=== PATIENT | female | born 1935 | race Caucasian/White ===

== ENCOUNTER → 2019-01-21 | Outpatient (CLI) | payer MEDICARE, SELFPAY ==
[2019-01-18 15:07] VITALS: BMI 24.0
--- NOTE | 2019-01-21 08:36 | RAD_ITS ---
STUDY: AIR CONTRAST UPPER GI SERIES postprandial abdominal pain. REASON FOR EXAM: Female, 83 years old. FLUOROSCOPY TIME (if supplied): (1:04) minutes/seconds TECHNIQUE: SINGLE CONTRAST AND AIR CONTRAST FLUOROSCOPIC IMAGES. COMPARISON: Comparison is made with prior study dated April 07, 2015. FINDINGS: The cervical esophagus demonstrates normal motility without aspiration. There is no stricture or extrinsic mass effect. No intraluminal polypoid mass is identified. The thoracic esophagus distends well without stricture or mucosal fold thickening. No mucosal ulcerations are identified. There is no extrinsic mass effect. There are no diverticula. No hiatal hernia or gastroesophageal reflux was identified. The stomach distends well without mucosal fold thickening or mucosal ulceration. There is no intraluminal mass. The duodenal bulb is freely distensible without deformity or ulceration. The duodenal sweep is normal in position and caliber. RAD/Upper GI w/BA Swallow IMPRESSION: Normal air-contrast upper GI series. Electronically Signed: Deangelo Naik, at 15:14 EDT , Service support ,
== END | disposition home or self-care (01) ==
LOC: RAD 08:35
PROVIDERS: Family Provider Internal Medicine; PCP Internal Medicine; Referring Provider Surgery; Visit Provider Surgery
DX: R13.10 Dysphagia, unspecified (principal)
CPT/HCPCS: 74246

== ENCOUNTER 2019-02-02 05:21 | Day surgery (SDC) | payer MEDICARE, SELFPAY ==
--- NOTE | 2019-01-18 03:28 | HP_ITS ---
Intake Vital Signs 01/18/19 Body Mass Index (BMI) 24.0 01/18/19 Height 5 ft 5 in 01/18/19 Weight: 144 lb 01/18/19 Body Mass Index (BMI) 23.9 01/18/19 Blood Pressure 199/81 H 01/18/19 Blood Pressure Location Rt brachial 01/18/19 Blood Pressure Position Sitting 01/18/19 Respiratory Rate 20 H 01/18/19 Pulse Rate 96 01/18/19 Pulse Source Monitor 01/18/19 Temperature 97.5 F L 01/18/19 Pulse Ox 96 01/18/19 Oxygen Delivery Method room air Intake Visit Reasons: EGD Consult/Barretts Esophagus Chief Complaint: Rectal Bleeding Leather Colorer Required: No Is patient in pain?: No Allergies acetaminophen [From Percocet] Allergy (Verified 01/18/19 15:06) Unknown aspirin Allergy (Verified 01/18/19 15:06) Unknown atorvastatin calcium [From Lipitor] Allergy (Verified 01/18/19 15:06) Unknown baclofen Allergy (Verified 01/18/19 15:06) Unknown celecoxib [From Celebrex] Allergy (Verified 01/18/19 15:06) Unknown flavoxate Allergy (Verified 01/18/19 15:06) Unknown glimepiride Allergy (Verified 01/18/19 15:06) Unknown hydrochlorothiazide Allergy (Verified 01/18/19 15:06) Unknown ibuprofen Allergy (Verified 01/18/19 15:06) Unknown losartan potassium [From Cozaar] Allergy (Verified 01/18/19 15:06) Unknown mirtazapine Allergy (Verified 01/18/19 15:06) Unknown nabumetone Allergy (Verified 01/18/19 15:06) Unknown orphenadrine Allergy (Verified 01/18/19 15:06) Unknown oxybutynin Allergy (Verified 01/18/19 15:06) Unknown oxycodone HCl [From Percocet] Allergy (Verified 01/18/19 15:06) Unknown paroxetine HCl [From Paxil] Allergy (Verified 01/18/19 15:06) Unknown pravastatin Allergy (Verified 01/18/19 15:06) Unknown pseudoephedrine HCl [From Sudafed] Allergy (Verified 01/18/19 15:06) Unknown simvastatin [From Zocor] Allergy (Verified 01/18/19 15:06) Unknown Sulfa (Sulfonamide Antibiotics) Allergy (Verified 01/18/19 15:06) Unknown tolterodine tartrate [From Detrol] Allergy (Verified 01/18/19 15:06) Unknown Medications Gabapentin [Neurontin] 300 mg PO QHS 02/11/17 [History Confirmed 01/18/19] Hydrocodone/Acetaminophen [Continental 5-325 Tablet] 1 ea PO Q6H PRN 02/11/17 [History Confirmed 01/18/19] Ipratropium [place] 0.06% [ATROVENT NASAL SPRAY (g)] 2 spray NASAL BID 02/11/17 [History Confirmed 01/18/19] Loratadine [Claritin] 10 mg PO DAILY 02/11/17 [History Confirmed 01/18/19] Pantoprazole Sodium [Protonix] 40 mg PO DAILY 02/11/17 [History Confirmed 01/18/19] Pioglitazone [Actos] 15 mg PO DAILY 02/11/17 [History Confirmed 01/18/19] Repaglinide [Prandin] 1 mg PO BID 02/11/17 [History Confirmed 01/18/19] Temazepam [Restoril] 15 mg PO QHS PRN PRN 02/11/17 [History Confirmed 01/18/19] metFORMIN HCl [Glucophage] 500 mg PO BIDCM 02/11/17 [History Confirmed 01/18/19] blood sugar diagnostic strips See Dose Instructions .ROUTE .MEDSUPPLY #20 ea 06/26/17 [History Confirmed 01/18/19] blood-glucose meter, drum-type kit See Dose Instructions .ROUTE .MEDSUPPLY #1 ea 06/26/17 [History Confirmed 01/18/19] carboxymethylcellulose sodium 1 % eye liquid gel drops 1 drp OPHTHALMIC .4 x qd ml 06/26/17 [History Confirmed 01/18/19] dextromethorphan-guaifenesin 10 mg-100 mg/5 mL oral syrup 10 ml PO Q8H PRN 06/26/17 [History Confirmed 01/18/19] hydrocortisone 2.5 % topical cream with perineal applicator 1 applic RC QD-BID PRN 06/26/17 [History Confirmed 01/18/19] insulin glargine (U-100) 100 unit/mL (3 mL) subcutaneous pen 10 unit SC .q am ml 06/26/17 [History Confirmed 01/18/19] insulin syringe U-100 with needle 0.5 mL 31 gauge x 11/19 See Dose Instructions .ROUTE .MEDSUPPLY #10 ea 06/26/17 [History Confirmed 01/18/19] lancets See Dose Instructions .ROUTE .MEDSUPPLY #50 ea 06/26/17 [History Confirmed 01/18/19] ondansetron HCl 4 mg tablet 4 mg PO Q8H PRN tab 06/26/17 [History Confirmed 01/18/19] pen needle, diabetic 32 gauge x See Dose Instructions .ROUTE .MEDSUPPLY #10 ea 06/26/17 [History Confirmed 01/18/19] sennosides 8.6 mg-docusate sodium 50 mg tablet 1 tab PO QHS PRN 06/26/17 [History Confirmed 01/18/19] tizanidine 4 mg capsule 4 mg PO .q hs PRN cap 06/26/17 [History Confirmed 01/18/19] valsartan 160 mg tablet 160 mg PO QDAY 06/26/17 [History Confirmed 01/18/19] PFSH Medical History Hypertension, essential (Chronic) Uncontrolled type 2 diabetes mellitus with diabetic neuropathy, with long-term current use of insulin (Acute) Type 2 diabetes mellitus (Chronic) Gastroesophageal reflux disease (Chronic) Hyperlipidemia (Chronic) Hypertension (Chronic) history of ischemic colitis (Chronic) Rectal bleeding (Acute) Chase esophagus (Chronic) Hiatal hernia (Chronic) PAD (peripheral artery disease) (Chronic) Dysphagia (Acute) Anxiety (Acute) Barretts esophagus (Acute) Bleeding disorder (Acute) 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) Cataracts, bilateral (Acute) Chronic rhinitis (Acute) Constipation (Acute) Degenerative disc disease (Acute) Diabetes type 2, controlled (Acute) Dysphagia (Acute) Esophagitis (Acute) Hearing problem (Acute) Hx of blood clots (Acute) Hyperlipidemia (Acute) IBS (irritable bowel syndrome) (Acute) Leg cramps (Acute) Osteopenia (Acute) PAD (peripheral artery disease) (Acute) Recurrent UTI (Acute) Spinal stenosis (Acute) Vision problems (Acute) HTN (hypertension) (Chronic) Surgical History S/P cardiac cath (Chronic) History of ear surgery (Acute) History of partial hysterectomy (Acute) Family History Unknown Arthritis Skin cancer Asthma Bleeding disorder Breast cancer Diabetes Heart disease Hypertension High cholesterol Cancer Social History (Updated 01/18/19 @ 15:28 by Dakota Pearson MD) Smoking Status: Former smoker second hand exposure: No alcohol intake: never substance use type: does not use HPI HPI HPI: LAKESHA MURDOCK, is a 83 F who presents to the office today for HPI HPI Surgical H&P: Yes HPI: LAKESHA MURDOCK is a 83 F who presents to the office today for surgical consultation because of problems with swallowing. Over the years I have assisted the patient with multiple various medical issues. December 17 I performed a combined upper and lower endoscopy for her. The upper endoscopy showed reflux esophagitis there was blood within the stomach hiatal hernia antral gastritis. Biopsies were negative for H. pylori. She was placed on appropriate treatment. Her colonoscopy demonstrated a tortuous colon but was otherwise normal. The patient has slowly progressively continue to lose weight. She is much less interested in eating. The meals that she eats a very small. Because of severe chronic back pain she does not like standing to prepare her meals. She does not enjoy going out for meals. She states that when she attempts to eat something dry it gets stuck and will not go down. She has just gotten over 2 to 3 days of diarrhea but she feels that she is improved. She request referral for my assistance. She has recently been seen by Leigh Aguilar NP and a written copy of my surgical consult recommendations will be returned to her. I very much appreciate the ongoing opportunity of assisting with her surgical care. ROS General General: No weight change, appetite, fatigue, colon cancer, breast cancer or weakness HEENT HEENT: No difficulty swallowing, eye injury, eye surgery, swollen glands or hoarseness Endo Endocrine: Yes diabetes mellitus; no thyroid disease, thyroid cancer, Hair loss, heat intolerance or cold intolerance Skin Skin: No rash or changing moles Breast Breast: No left breast lump, right breast lump, nipple discharge, breast pain, abnormal mammogram, abnormal US or breast enlargement Musc Musculoskeletal: Yes back problems and arthritis; no rheumatoid arthritis, gout or joint pain Cardio Cardiovascular: Yes high blood pressure; no murmur, pacemaker, heart disease, atrial fibrillation, heart attack, heart stent, palpitations, shortness of breat with exertion or chest pain Psych Psychiatric: No depression, anxiety or hearing voices Resp Respiratory: No shortness of breath, No sleep apnea, No cough, No COPD, No asthma, No emphysema, No wheezing Gastro Gastrointestinal: Yes abdominal pain, No nausea or vomiting, Yes diarrhea, No constipation, No blood in stool, No acid reflux, No hemorrhoids, No ulcers, No gallbladder problem, No black,tarry stools Erick Hematologic: No blood thinners, No blood disorders, No bleeding, No anemia, No blood clots Neuro Neurologic: No weakness Exam Const General: cooperative, no acute distress Nutritional Appearance: underweight Orientation: alert, awake, oriented x3 HENMT Other: Well-healed surgical incision left neck, gaunt in appearance Chest Breast Palpation: No nipple discharge Other: Scoliotic, Resp Effort & Inspection: normal respiratory effort Auscultation: clear to auscultation bilaterally Cardio Rate: regular rate Rhythm: regular rhythm Heart Sounds: no murmurs GI Other: Very scaphoid, nontender, normal bowel sounds, no hepatosplenomegaly, no mass, well-healed infraumbilical midline incision Neuro Cognition: normal cognition Other: Hard of hearing Extrem General: no calf tenderness bilaterally Assessment & Plan Plan 83-year-old female. She does have advanced multi segmental peripheral vascular occlusive disease. She has had a history of previous very tortuous colon on colonoscopy. She has a history of Chase's esophagus. She is accelerated complaints of esophageal dysphasia. She has decreased oral intake and slow but progressive weight loss. I recommend to her a contrast upper GI study. Subsequent to that I recommend to her a esophagogastroduodenoscopy with very careful inspection of her Chase's and anticipated Chase's biopsies. She is aware of the technique, benefit, risk and alternatives. She has had an opting to ask and have questions answered. We will schedule and proceed at her discretion. CC: Leigh Aguilar NP and Dr. Juliocesar Pearson M.D., F.A.C.S. Orders Orders: EGD Today K22.70 Upper GI w/BA Swallow Today R13.10 Coding Level of Care Code 54745 01/18/19 1529 <Electronically signed by Dakota hanson MD> Date _ Dakota Pearson MD I have re-examined the patient. There are no clinical changes since date of exam.
[2019-01-18 15:07] VITALS: BMI 24.0
[2019-02-02] VITALS (8 sets, daily range): BP systolic 162–213; BP diastolic 76–95; PULSE 90–93; RESP 14–18; TEMP 36.2–36.9; O2SAT 92–100; BMI 24.1
--- NOTE | 2019-02-02 | IMM_PTH ---
PATIENT: LAKESHA MURDOCK LOC: EN U#:[id number] AGE/SX: 83/F ROOM: RE02/02/[address]: Dr. Dakota Pearson MD : 1935 BED: DIS: 02/02/2019 SPEC #: [id number] RECD: 02/02/19 14:09 STATUS: KULDIP CARLI #: [id number] NEHA: 02/02/19 00:[address]: Dakota Pearson DEPT: IMMUNOHISTOCHEMISTRY RECD BY: Daria Sanchez ENTERED: 02/02/19 14:10 SP TYPE: IMMUNO OTHR DR: Dr. Juliocesar Salmon MD Tissues: Gastric mucous membrane Procedures: H Pylori (initial) PHYSICIAN & [address] [address] SPECIMEN INFORMATION: Tissue Source: B. Antrum biopsy Clinical Info: History of Chase's esophagus, esophageal dysphasia Specimen Number: [id number] CPT code: 65623 METHODOLOGY: Deparaffinized sections of prefer/formalin-fixed tissue or PAP/DQ stained slides are incubated with monoclonal/polyclonal antibodies/oligonucleotide probes. Localization is made via biotin free immunoperoxidase method. Appropriate controls are performed and reacted as expected. Results on target cell population are indicated in the following table: RESULTS: ANTIBODY / CLONE RESULT H Pylori (polyclonal) negative These tests were developed and their performance characteristics determined by [facility]. They may not have been cleared or approved by the U.S. Food and Drug Administration. The FDA has determined that such clearance or approval is not necessary. INTERPRETATION: Negative for Helicobacter pylori organisms. AM:khalif 02/03/19
--- NOTE | 2019-02-02 | EGD_PTH ---
PATIENT: LAKESHA MURDOCK LOC: EN U#:[id number] AGE/SX: 83/F ROOM: RE02/02/[address]: Dr. Dakota Pearson MD : 1935 BED: DIS: 02/02/2019 SPEC #: [id number] RECD: 02/02/19 12:52 STATUS: KULDIP CARLI #: [id number] NEHA: 02/02/19 00:[address]: Dakota Pearson DEPT: SURGICAL PATHOLOGY RECD BY: Sulaiman Zuluaga ENTERED: 02/02/19 12:55 SP TYPE: EGD [facility]OP[facility] DR: Dr. Juliocesar Salmon MD Tissues: A - Duodenum, NOS B - Gastric mucous membrane C - Stomach, NOS D - Esophagus, NOS E - Esophagus, NOS Procedures: Surgery Specimen Level IV HEADER OPERATION: EGD MOD PRE-OP DIAGNOSIS: History of Chase's esophagus, esophageal dysphasia TISSUE SUBMITTED: A. Duodenum biopsy, B. Antrum biopsy, C. Biopsy of polyp in body of stomach, D. Distal esophagus biopsy, E. Mid esophagus biopsy MICROSCOPIC DIAGNOSIS A. Duodenum, biopsy: Consistent with Lisset's gland hyperplasia. Mild nonspecific chronic inflammation, there is significant flattening of the villi. Clinical correlation is suggested. B. Gastric antrum, biopsy: Mild chronic gastritis. C. Gastric polyp, biopsy: Fundic gland polyp. D. Distal esophagus, biopsy: Gastroesophageal junction mucosa with mild chronic inflammation. No evidence of the intestinal metaplasia. E. Mid esophagus, biopsy: Fragment of the benign squamous mucosa. No evidence of inflammation. AM:stephanie 02/03/19 COMMENT B. The results of immunohistochemistry for Helicobacter pylori will be reported separately ([id number]). D. Alcian blue/PAS stain with matched control supports the above diagnosis. MICROSCOPIC DESCRIPTION Slides are reviewed. GROSS DESCRIPTION A - Received is one container labeled with the patient name and designated duodenal biopsy. The specimen consists of one irregular fragment that measures 0.5 x 0.3 x 0.1 cm. The specimen is totally submitted in one cassette. B - Received is one container labeled with the patient name and designated antrum biopsy. The specimen consists of one irregular fragment that measures 0.3 x 0.2 x 0.1 cm. The specimen is totally submitted in one cassette. C - Received is one container labeled with the patient name and designated body of stomach. The specimen consists of one irregular fragment that measures 0.2 x 0.2 x 0.1 cm. The specimen is totally submitted in one cassette. D - Received is one container labeled with the patient name and designated distal esophagus biopsy. The specimen consists of two fragments that in aggregate measure 0.6 x 0.5 x 0.1 cm. The specimen is totally submitted in one cassette. E - Received is one container labeled with the patient name and designated mid esophagus biopsy. The specimen consists of one fragment that measures 0.5 x 0.2 x less than 0.1 cm. The specimen is totally submitted in one cassette. AM:stephanie 02/02/19 TC: 3 CPT: 95621 x5, 69614 x1
[2019-02-02 06:15] LABS: Bedside Glucose 81 mg/dL (70-110)
--- NOTE | 2019-02-02 06:47 | OP.ENDO_ITS ---
02/02/2019 Juliocesar Salmon [address] [place] [address] Re : Upper GI endoscopy procedure for Sirisha Forrest Dear Dr. Salmon This procedure was performed on Saturday, February 02, 2019. My impressions and recommendations are as follows: Impressions : - LA Grade A reflux esophagitis. Biopsied. - Medium-sized hiatal hernia. - Erythematous mucosa in the antrum. Biopsied. - A few gastric polyps. Resected and retrieved. - Normal examined duodenum. Biopsied. - Biopsies were taken with a cold forceps for histology in the middle third of the esophagus. Recommendations : - Discharge patient to home. - Resume previous diet. - Continue present medications. - Telephone my office for pathology results in 1 week. My findings are described in the full procedure note, which is enclosed. If I can be of further assistance, please feel free to contact me at Doctor phone number(s): Work: . Sincerely, Dakota Pearson MD 02/02/2019 6:46:55 AM This report has been signed electronically.
== END 2019-02-02 07:43 | disposition home or self-care (01) ==
LOC: EN 05:22 → AC 05:23
PROVIDERS: Family Provider Internal Medicine; PCP Internal Medicine; Referring Provider Surgery; Visit Provider Surgery
PROC: (CPT 43239; principal; 2019-02-02 06:25)
DX: K21.0 Gastro-esophageal reflux disease with esophagitis (principal); K29.50 Unspecified chronic gastritis without bleeding; K44.9 Diaphragmatic hernia without obstruction or gangrene; K31.7 Polyp of stomach and duodenum; I10 Essential (primary) hypertension; E11.40 Type 2 diabetes mellitus with diabetic neuropathy, unspecified; E78.00 Pure hypercholesterolemia, unspecified; I73.9 Peripheral vascular disease, unspecified; F41.9 Anxiety disorder, unspecified; K58.9 Irritable bowel syndrome, unspecified; M85.80 Other specified disorders of bone density and structure, unspecified site; M48.00 Spinal stenosis, site unspecified; M19.90 Unspecified osteoarthritis, unspecified site; Z87.19 Personal history of other diseases of the digestive system; Z87.440 Personal history of urinary (tract) infections; Z79.84 Long term (current) use of oral hypoglycemic drugs; Z79.4 Long term (current) use of insulin; Z79.899 Other long term (current) drug therapy; Z87.891 Personal history of nicotine dependence
CPT/HCPCS: 43239; 82962; 88305; 88342; 99152; 99153; J7120

== ENCOUNTER → 2019-04-22 08:08 | Outpatient (CLI) | payer MEDICARE, SELFPAY ==
[2019-02-02 05:53] VITALS: BMI 24.1
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
== END ==
PROVIDERS: Family Provider Internal Medicine; PCP Internal Medicine; Referring Provider Otolaryngology; Visit Provider Otolaryngology
DX: J32.9 Chronic sinusitis, unspecified (principal); H92.01 Otalgia, right ear
CPT/HCPCS: 70486

== ENCOUNTER → 2020-01-06 08:20 | Outpatient (CLI) | payer MEDICARE, SELFPAY ==
[2019-02-02 05:53] VITALS: BMI 24.1
[2020-01-06] VITALS (10 sets, daily range): BP systolic 170–214; BP diastolic 71–95; PULSE 105–115; RESP 13–20; TEMP 36.8; O2SAT 94–100; BMI 22.8
--- NOTE | 2020-01-06 | ASPIGT_PTH ---
PATIENT: LAKESHA MURDOCK LOC: CT U#:[id number] AGE/SX: 89/F ROOM: RE01/06/[address]: Dr. Renée Gross MD : 1935 BED: DIS: SPEC #: [id number] RECD: 01/06/20 10:30 STATUS: KULDIP BOYCE #: [id number] NEHA: 01/06/20 00:[address]: Renée Gross DEPT: SURGICAL PATHOLOGY RECD BY: Daria Sanchez ENTERED: 01/06/20 11:06 SP TYPE: ASP RAD OTHR DR: Dr. 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 See comment. SJ:emeka 01/18/20 COMMENT The specimen is evaluated at the time of biopsy by Dr. Weinberg. Immediate Evaluation = Adequate for evaluation. Hepatocytes with mild to moderate atypia noted. The specimen is sent to [facility] for expert opinion and reviewed by Dr. Hewitt and above diagnosis is rendered. The complete report is viewable in the patient's EMR. Immunohistochemistry ([id number]) performed here and also [facility] the above diagnosis. Please make reference to previous specimen ([id number]) liver, CT-guided core biopsy with diagnosis of liver parenchymal tissue with focal microvesicular steatosis, increased portal fibrosis and focal bridging fibrosis. Slides are reviewed again. Case has been reviewed in consultation with Dr. Colvin who concurs with the above diagnosis. IDC:AM MICROSCOPIC DESCRIPTION Slides are reviewed. GROSS DESCRIPTION Received in fixative is one container labeled with the patient's name and designated liver mass, CT-guided core biopsy. The specimen consists of multiple elongated fragments of abbott soft tissue that in aggregate measure 1.5 x 0.2 x 0.1 cm. The specimen is totally submitted in one cassette. Three touch imprints are prepared. / ALLA:emeka 01/06/20 TC:0 CPT: 28602, 84766
--- NOTE | 2020-01-06 | IMM_PTH ---
PATIENT: LAKESHA MURDOCK LOC: CT U#:[id number] AGE/SX: 89/F ROOM: RE01/06/[address]: Dr. Renée Gross MD : 1935 BED: DIS: SPEC #: [id number] RECD: 01/10/20 11:47 STATUS: KULDIP REQ #: [id number] NEHA: 01/06/20 00:[address]: Renée Gross DEPT: IMMUNOHISTOCHEMISTRY RECD BY: Genevieve Fulton ENTERED: 01/10/20 11:49 SP TYPE: IMMUNO OTHR DR: Dr. Juliocesar Salmon MD Tissues: Liver, NOS Procedures: Synapto (add) RCC (add) NAPSIN A (add) CA-125 (add) Saurabh Ret (add) CD56 (add) CEA (add) CHROMO (add) CK20 (add) CK5-6 (add) CK7 (add) CK8 (add) DINERO-2 (add) HEP PAR (add) MAMM (add) WA (add) TTF1 (add) Vimentin (add) GATA3 (add) P40 (add) CDX2 (add) ER (initial) PHYSICIAN & INSTITUTION [address] [address] SPECIMEN INFORMATION: Tissue Source: Liver mass, CT-guided core biopsy Clinical Info: Liver mass Specimen Number: [id number] CPT code: 73494, 21696 x21 METHODOLOGY: Deparaffinized sections of prefer/formalin-fixed tissue or PAP/DQ stained slides are incubated with monoclonal/polyclonal antibodies/oligonucleotide probes. Localization is made via biotin free immunoperoxidase method. Appropriate controls are performed and reacted as expected. Results on target cell population are indicated in the following table: RESULTS: ANTIBODY / CLONE RESULT ER (6F11) negative WA (1E2) positive, weak (~5%) CK7 (OV-TL12/30) negative CK8 (75socxH45) positive CK20 (KS20.8) negative CD56 (123C3.D5) negative Chromo (LK2H10) negative Synapto (polyclonal) negative TTF-1 (8G7G3/1) negative Napsin A (Rabbit Polyclonal) negative HepPar (OCh1E5) negative RCC (PN-15) negative CK5-6 (D5 & 1684) positive, focal P40 (BC28) negative CEA (11-7/TF-3HB-1) positive, focal, dim/canilicular Vimentin (V9) negative CALRET (polyclonal) negative GATA3 (L50-823) positive, rare cells Mammaglobin (31A5) negative CA125 (OC125) negative DINERO-2 (SP21) positive CDX2 ([id number]) negative These tests were developed and their performance characteristics determined by [facility]. They may not have been cleared or approved by the U.S. Food and Drug Administration. The FDA has determined that such clearance or approval is not necessary. The above immunohistochemical/dualISH markers are ordered and reviewed by the Pathologist. 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 See comment. SJ:emeka 01/18/20 Comment: The specimen is sent to [facility] for expert opinion, reviewed by Dr. Hewitt and above diagnosis is rendered. Additional immunohistochemical stains also performed there supports the above diagnosis. Case has been reviewed in consultation with Dr. Colvin who concurs with the above diagnosis. IDC:AM
--- NOTE | 2020-01-06 08:22 | CT_ITS ---
PROCEDURE: CT DIRECTED CORE LIVER BIOPSY INDICATION: Female, 84 years old. LIVER BX PHYSICIAN: Dr. Heena Argueta CONSENT: Written informed consent was obtained having explained the risks, benefits and alternatives in detail with the patient who accepted the risks and agreed to proceed. Laboratory review and clinical assessment was performed. CONSCIOUS SEDATION PROTOCOL: The Drugs used were: 2 mg Versed, IV., and 50 mcg Fentanyl, IV. The sedation time was: 10 minutes. Conscious sedation was started at 9:58 AM and terminated at 10:08 AM. The conscious sedation protocol was independently monitored. RADIATION DOSAGE (If Supplied By Facility): CTDIvol = ( 15 ) mGy, DLP = ( 309.74 ) mGycm Individualized dose optimization techniques were used for this CT. TECHNIQUE: Using CT image guidance with image documentation, a suitable location in the right lobe of the liver was identified. Using an anterior approach, puncture of the liver was uneventful with an 18-gauge core needle system. 4, 18-gauge core samples were obtained, and submitted in formalin to the pathologist for further assessment. Followup CT scan revealed no distinct sequelae. CT/Biopsy/Inj or Needle Placement IMPRESSION: 1. CT directed core needle biopsy of the liver, using CT image guidance with image documentation as described. 2. Conscious Sedation protocol utilized with independent monitoring. Electronically Signed: Deangelo Naik, at 10:32 EDT , Service support ,
[2020-01-06 08:49] LABS: Platelet Count 240 K/mm3 (150-450)
[2020-01-06 09:02] LABS: Prothrombin Time (Protime)PT. 12.4 SECONDS (11.7-14.9)
[2020-01-06 09:03] LABS: Partial Thromboplast Time 30.1 Seconds (24.1-36.2)
[2020-01-06] MEDS: Midazolam 2 MG/2 ML Syringe IV (09:58)
[2020-01-06] MEDS: fentaNYL 100 MCG/2 ML Ampul IV (10:00)
== END ==
PROVIDERS: PCP Internal Medicine; Referring Provider Surgery; Visit Provider Surgery
DX: C22.7 Other specified carcinomas of liver (principal); I10 Essential (primary) hypertension; F41.9 Anxiety disorder, unspecified; E11.9 Type 2 diabetes mellitus without complications; I73.9 Peripheral vascular disease, unspecified; K58.9 Irritable bowel syndrome, unspecified; M48.062 Spinal stenosis, lumbar region with neurogenic claudication; Z87.440 Personal history of urinary (tract) infections; Z86.718 Personal history of other venous thrombosis and embolism; Z87.19 Personal history of other diseases of the digestive system; Z79.4 Long term (current) use of insulin; Z79.84 Long term (current) use of oral hypoglycemic drugs; Z79.899 Other long term (current) drug therapy; Z87.891 Personal history of nicotine dependence
CPT/HCPCS: 47000; 36415; 77012; 85049; 85610; 85730; 88172; 88305; 88307; 88313; 88325; 88341; 88342; 99156; J7040; A4216

== ENCOUNTER 2020-02-24 12:36 | Inpatient (IN) | payer MEDICARE, SELFPAY ==
[2020-01-06 08:59] VITALS: BMI 22.8
[2020-02-24] VITALS (17 sets, daily range): BP systolic 123–167; BP diastolic 50–68; PULSE 32–103; RESP 12–19; TEMP 36.9–38.2; O2SAT 85–98; BMI 23.5; BMI 21.4; BMI 21.5
--- NOTE | 2020-02-24 13:07 | EKG12_ITS ---
Test Reason : Blood Pressure : / mmHG Vent. Rate : 103 BPM Atrial Rate : 103 BPM P-R Int : 176 ms QRS Dur : 108 ms QT Int : 346 ms P-R-T Axes : 086 010 026 degrees QTc Int : 453 ms Sinus tachycardia Septal infarct , age undetermined Abnormal ECG When compared with ECG of 26-FEB-2020 01:21, MANUAL COMPARISON REQUIRED, DATA IS UNCONFIRMED Confirmed by BERNARDO GREGG ([id number]), editor city KRISTIN ACEVEDO ([id number]) on 03/02/2020 9:05:11 AM Referred By: CARDIOLOGY Confirmed By:BERNARDO GREGG
[2020-02-24 13:16] LABS: Absolute Lymphocyte Count 0.51 X10^3/uL (0.83-4.51); Absolute Neutrophil Count 6.9 X10^3/uL (2.0-7.7); Basophil# 0.02 X10^3/uL; Basophil% 0.2 % (0-1); Eosinophil# 0.01 X10^3/uL; Eosinophils% 0.1 % (0-5); Hematocrit 28.2 % (37-47); Hemoglobin 8.7 g/dL (12.0-15.0); Lymphocyte # 0.51 X10^3/ul (4.0); Lymphocyte % 6.2 % (19-41); Mean Corp Hgb Conc 30.9 g/dL (32-36); Mean Corpuscular Hgb 26.3 pg (27.0-32.0); Mean Corpuscular Volume 85.2 fL (81-99); Mean Platelet Vol. 10.4 fl (6.2-12.0); Monocyte# 0.74 X10^3/uL; Monocyte% 9.1 % (0-10); NRBC Flagged by Analyzer 0 % (0-5); Neutrophil # 6.86 X10^3/uL (2.7-7.7); POSITIVE DIFFERENTIAL YES; Platelet Count 320 K/mm3 (150-450); RBC Distribution Width CV 16.8 % (11.6-14.6); RBC Distribution Width SD 52.5 fl (35.1-43.9); Red Blood Count 3.31 M/mm3 (4.2-5.4); White Blood Count 8.2 K/mm3 (4.4-11.0)
[2020-02-24 13:19] LABS: Differential Indicated SCAN CRITERIA MET
[2020-02-24 13:21] LABS: International Normalized Ratio 1.2; Prothrombin Time (Protime)PT. 14.3 SECONDS (11.7-14.9)
[2020-02-24 13:22] LABS: Partial Thromboplast Time 30.5 Seconds (24.1-36.2)
[2020-02-24 13:30] LABS: ALB/GLOB Ratio 0.6 RATIO (0.9-2.4); AST(SGOT) 91 U/L (15-37); Alanine Aminotransfer ALT/SGPT 59 U/L (13-56); Albumin, Serum 2.7 g/dL (3.2-5.0); Alkaline Phosphatase 307 U/L (45-117); Anion Gap 6 (5-15); BUN 12 mg/dL (7-18); BUN/Creat Ratio 8.8 RATIO (10-20); Calcium,Total 8.1 mg/dL (8.5-10.1); Chloride 95 mmol/L (98-107); Creatinine, Serum 1.36 mg/dL (0.55-1.02); EST Glomerular Filtration Rate 39 mL/min (>60); Est Glom Filt Rate - Afr Amer 48 mL/min (>60); Globulin 4.4 g/dL (2.2-4.2); Glucose 179 mg/dL (74-106); Potassium 5.8 mmol/L (3.5-5.1); Protein, Total 7.1 g/dL (6.4-8.2); Sodium Level 123 mmol/L (136-145)
[2020-02-24 13:35] LABS: Lactic Acid 2.6 mmol/L (0.4-1.9)
--- NOTE | 2020-02-24 13:35 | RAD_ITS ---
STUDY: X-RAY CHEST REASON FOR EXAM: Female, 84 years old. ABNORMAL LABS. LIVER CA. TECHNIQUE: Single AP portable view of the chest. COMPARISON: None. FINDINGS: Cystic metastases within the right and left lung bases. Small bilateral pleural effusions are limited. Normal size heart. Normal mediastinum and pillo. Normal visualized pulmonary arteries. There is atherosclerotic calcification of the aortic arch with tortuosity. Normal visualized thoracic spine. There is degenerative osteoarthritis of the bilateral shoulders. There is no demonstrated abnormality of the visualized soft tissue structures of the upper abdomen. RAD/Chest 1 View (Portable) IMPRESSION: Small bilateral pleural effusions. Electronically Signed: Erna Monreal, at 14:17 EDT Tel , Service support ,
--- NOTE | 2020-02-24 13:46 | ED.VIS.GEN ---
History of Present Illness Chief Complaint: Abn Labs Informant: Patient Narrative: Patient is an 84-year-old female with a past medical history of liver cancer currently undergoing chemotherapy who presents to the ED for generalized weakness. She has had a couple falls at home due to this. She was not aware that she had a fever but had an elevated temperature upon arrival here. She denies any infectious symptoms including any cough, cold, congestion. She did have some abdominal pain in the past couple days but this has since resolved. No nausea or vomiting currently no change in bowel habits. She denies any urinary symptoms. No rashes. No headache or stiff neck. She denies injuring anything during the falls. Denies hitting her head or losing consciousness. Past Medical History - Allergies and Home Meds Allergies/Adverse Reactions: Allergies acetaminophen [From Percocet] Allergy (Verified 02/24/20 12:38) Unknown aspirin Allergy (Verified 02/24/20 12:38) Unknown atorvastatin calcium [From Lipitor] Allergy (Verified 02/24/20 12:38) Unknown baclofen Allergy (Verified 02/24/20 12:38) Unknown celecoxib [From Celebrex] Allergy (Verified 02/24/20 12:38) Unknown flavoxate Allergy (Verified 02/24/20 12:38) Unknown glimepiride Allergy (Verified 02/24/20 12:38) Unknown hydrochlorothiazide Allergy (Verified 02/24/20 12:38) Unknown ibuprofen Allergy (Verified 02/24/20 12:38) Unknown losartan potassium [From Cozaar] Allergy (Verified 02/24/20 12:38) Unknown mirtazapine Allergy (Verified 02/24/20 12:38) Unknown nabumetone Allergy (Verified 02/24/20 12:38) Unknown orphenadrine Allergy (Verified 02/24/20 12:38) Unknown oxybutynin Allergy (Verified 02/24/20 12:38) Unknown oxycodone HCl [From Percocet] Allergy (Verified 02/24/20 12:38) Unknown paroxetine HCl [From Paxil] Allergy (Verified 02/24/20 12:38) Unknown pravastatin Allergy (Verified 02/24/20 12:38) Unknown pseudoephedrine HCl [From Sudafed] Allergy (Verified 02/24/20 12:38) Unknown simvastatin [From Zocor] Allergy (Verified 02/24/20 12:38) Unknown Sulfa (Sulfonamide Antibiotics) Allergy (Verified 02/24/20 12:38) Unknown tolterodine tartrate [From Detrol] Allergy (Verified 02/24/20 12:38) Unknown Prior records reviewed: Yes Past Medical History: - - Hypertension, hyperlipidemia, diabetes, liver cancer Surgical History: - Smoking Status: Former smoker - Family History Maternal Family History: Family History (Last Reviewed 01/18/19 @ 15:03 by Roxanne Genao) Unknown Arthritis Skin cancer Asthma Bleeding disorder Breast cancer Diabetes Heart disease Hypertension High cholesterol Cancer Family History: Reports: - Paternal Family History: Family History (Last Reviewed 01/18/19 @ 15:03 by Roxanne Genao) Unknown Arthritis Skin cancer Asthma Bleeding disorder Breast cancer Diabetes Heart disease Hypertension High cholesterol Cancer Family History: Reports: No pertinent history, - Review of Systems All systems negative except as indicated General: Denies: Chills, Fever, Sweats Eyes: Denies: Visual changes - bilaterally, Diplopia ENT: Denies: Rhinorrhea, Sore throat Cardiovascular: Denies: Chest pain, Palpitations Respiratory: Denies: Dyspnea, Cough, Dyspnea on exertion Gastrointestinal: Reports: Abdominal pain - Resolved. Denies: Nausea, Vomiting, Diarrhea, Melena, Hematochezia Genitourinary: Denies: Dysuria, Hematuria, Frequency Musculoskeletal: Denies: Back pain, Extremity Pain Skin: Denies: Rash, Wounds Neurological: Denies: Headache, Weakness, Numbness Physical Exam Vital Signs/Narrative: Vital Signs Temp Pulse Resp BP Pulse Ox 02/24/20 13:44 100.6 F H 95 18 123/50 H 94 02/24/20 13:36 100.6 F H 02/24/20 12:50 92 13 96 02/24/20 12:48 98 02/24/20 12:38 100.5 F H 32 L 12 145/55 H 85 Inital Vital Signs reviewed: Yes General: Cachectic, No Acute Distress Head: Normocephalic, Atraumatic Eyes: Perrl, EOMI ENT: Moist mucous membranes, No rhinorrhea Neck: Supple, Nontender Cardiovascular: Regular rate, Regular rhythm, No murmurs Respiratory: No distress, CTA bilaterally, Chest nontender Abdomen: Soft, Nontender, Nondistended, Normal bowel sounds Back: Nontender, Normal Inspection Extremities: Nontender, No edema Skin: Normal color, No rash Neurological: Alert, Oriented x3, Cranial nerves II-XII grossly intact, Normal Strength, Normal Sensation Psychological: Normal affect, Normal Mood Diagnostic/Tx/Re-eval - EKG Initial EKG Interpretation: - - Rate of 92 bpm and normal sinus rhythm. Normal intervals. Normal axis. Mild ST elevation in the anterior leads. No STEMI criteria. No typical changes. Otherwise no T wave abnormalities. - Medical Decision Making Patient presents to the ED for generalized weakness. She is currently undergoing chemotherapy. On arrival to the ED she had a low-grade fever. She does not have any complaints except for generalized weakness. Basic lab work being obtained along with blood cultures and lactic acid. Patient's lab work showed her to be severely hyponatremic. She is also mildly anemic compared to her baseline. No significantly high white blood cell count. No evidence of infection on chest x-ray. Urine did not show any evidence of UTI. There is a fever of unknown origin at this point. Virus is currently pending. Hold off on antibiotic treatment. Case was discussed with hospitalist who came down to evaluate the patient. Will bring in for further evaluation and management. Patient understands and is agreeable with this plan. ED Disposition - Plan for ED Patient: Disposition: Acute Care Hospital [facility] Diagnosis: Fever, Hyponatremia, Anemia, Generalized weakness
[2020-02-24 13:52] LABS: Hypochromasia 1+
--- NOTE | 2020-02-24 14:21 | NURSING ---
PCU FEVER ASHELFAH
--- NOTE | 2020-02-24 14:31 | PCM.HP.STD ---
Problem List (1) Type 2 diabetes mellitus Status: Chronic Comment: Has continued to have no low BG. No longer snacking at bedtime. Reports improved appetite. Will change her prandin to pre supper instead of lunch with lantus 7 units to see if we can lower pm readings. (2) Hyperlipidemia Status: Chronic (3) PAD (peripheral artery disease) Status: Chronic (4) Hepatocellular carcinoma Status: Chronic (5) Hypertension, essential Status: Chronic Comment: BP has improved since change in diovan. Recheck 144/70. PCP is adjusting her anti-hypertensives. (6) Gastroesophageal reflux disease Status: Chronic (7) Chase esophagus Status: Chronic (8) Hiatal hernia Status: Chronic History of Present Illness Date of Admission: 02/24/20 Chief Complaint: Abnormal labs, weakness, nausea and vomiting. The patient is a 84 year old F with past medical history as mentioned above presented to the emergency room because of abnormal labs, weakness with nausea and vomiting. The patient is very poor informant and was not able to provide consistent history. Patient mentioned that she went to see her cancer doctor yesterday, Dr. Thao, had some blood work and today, her son brought her to the emergency department. She complains of nausea and vomiting that started yesterday, associated with vague abdominal pain and weakness. Today, she had no more nausea and vomiting, she denied abdominal pain. She reported intermittent diarrhea as well. She denied fever or chills. She denied cough or sputum production. She mentioned that she has been weak and she had a fall yesterday at home. No significant trauma to her body. She was diagnosed recently with hepatocellular carcinoma and currently, she is undergoing chemotherapy and she follows up with Dr. Thao. She will history of type 2 diabetes mellitus, has been on metformin and insulin and blood sugar has been under reasonable control. She will history of hypertension and she has been on Avapro and her blood pressure has been under control. In the emergency department, patient has spike of low-grade fever, blood pressure and heart rate are stable, pulse ox was 94% on 2 L. Routine blood work was remarkable for hemoglobin of 8.7 g/dL, sodium of 123, potassium 5.8, creatinine 1.36. Lactic acid was 2.6. LFT revealed slightly elevated liver transaminases and alkaline phosphatase. Troponin was negative. Chest x-ray revealed minimal small bilateral effusion, no acute infiltrate. Urinalysis showed no evidence of acute cystitis. COVID-19 PCR is pending at this time. She is being admitted for SIRS, hyponatremia, hyperkalemia, dehydration and physical debility. Past Medical History Past Medical History (Chronic Problems): Chronic Problems (Last Updated 02/24/20 @ 13:[address] Noemi Tyson MD) Type 2 diabetes mellitus (Chronic) Has continued to have no low BG. No longer snacking at bedtime. Reports improved appetite. Will change her prandin to pre supper instead of lunch with lantus 7 units to see if we can lower pm readings. Hyperlipidemia (Chronic) Hypertension (Chronic) PAD (peripheral artery disease) (Chronic) Hepatocellular carcinoma (Chronic) Hypertension, essential (Chronic) BP has improved since change in diovan. Recheck 144/70. PCP is adjusting her anti-hypertensives. Gastroesophageal reflux disease (Chronic) history of ischemic colitis (Chronic) S/P cardiac cath (Chronic) 2009 Chase esophagus (Chronic) Hiatal hernia (Chronic) Medical History: Medical History (Last Updated 02/24/20 @ 13:[address] Noemi Tyson MD) Hypertension, essential (Chronic) I10 BP has improved since change in diovan. Recheck 144/70. PCP is adjusting her anti-hypertensives. 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 Cataracts, bilateral H26.9 Degenerative disc disease Diabetes type 2, controlled E11.9 Dx : 1987 Last exacerbation : DKA : never Hypoglycemic episode : never ER visit : never Hx of blood clots Z86.718 Hyperlipidemia E78.5 IBS (irritable bowel syndrome) K58.9 Osteopenia M85.80 PAD (peripheral artery disease) I73.9 Spinal stenosis M48.00 Rectal bleeding (Inactive) K62.5 Allergies acetaminophen [From Percocet] Allergy (Verified 02/24/20 12:38) Unknown aspirin Allergy (Verified 02/24/20 12:38) Unknown atorvastatin calcium [From Lipitor] Allergy (Verified 02/24/20 12:38) Unknown baclofen Allergy (Verified 02/24/20 12:38) Unknown celecoxib [From Celebrex] Allergy (Verified 02/24/20 12:38) Unknown flavoxate Allergy (Verified 02/24/20 12:38) Unknown glimepiride Allergy (Verified 02/24/20 12:38) Unknown hydrochlorothiazide Allergy (Verified 02/24/20 12:38) Unknown ibuprofen Allergy (Verified 02/24/20 12:38) Unknown losartan potassium [From Cozaar] Allergy (Verified 02/24/20 12:38) Unknown mirtazapine Allergy (Verified 02/24/20 12:38) Unknown nabumetone Allergy (Verified 02/24/20 12:38) Unknown orphenadrine Allergy (Verified 02/24/20 12:38) Unknown oxybutynin Allergy (Verified 02/24/20 12:38) Unknown oxycodone HCl [From Percocet] Allergy (Verified 02/24/20 12:38) Unknown paroxetine HCl [From Paxil] Allergy (Verified 02/24/20 12:38) Unknown pravastatin Allergy (Verified 02/24/20 12:38) Unknown pseudoephedrine HCl [From Sudafed] Allergy (Verified 02/24/20 12:38) Unknown simvastatin [From Zocor] Allergy (Verified 02/24/20 12:38) Unknown Sulfa (Sulfonamide Antibiotics) Allergy (Verified 02/24/20 12:38) Unknown tolterodine tartrate [From Detrol] Allergy (Verified 02/24/20 12:38) Unknown Home Medications: Ambulatory Orders Medication Instructions Recorded Ipratropium [place] 0.06% 2 spray NASAL BID 02/11/17 [ATROVENT NASAL SPRAY (g)] Pantoprazole Sodium [Protonix] 40 mg PO DAILY 02/11/17 Pioglitazone [Actos] 15 mg PO DAILY 02/11/17 Repaglinide [Prandin] 1 mg PO BID 02/11/17 Temazepam [Restoril] 15 mg PO QHS PRN PRN 02/11/17 metFORMIN HCl [Glucophage] 500 mg PO BIDCM 02/11/17 ondansetron HCl 4 mg tablet 4 mg PO Q8H PRN tab 06/26/17 Gabapentin [Neurontin] 200 mg PO QHS 02/24/20 Hydrocodone Bitart/Apap 5-325 1 tab PO Q4H PRN PRN 02/24/20 [[place] 5MG-325MG] Insulin Aspart [Novolog Flexpen 5 units SUBCUT DINNER 02/24/20 ([facility])] Insulin Detemir [Levemir Flextouch] 15 unit SQ DAILY 02/24/20 Irbesartan [Avapro] 150 mg PO DAILY 02/24/20 Iron Polysaccharide Complex 150 mg PO BID 02/24/20 [Ferrex 150] Loperamide HCl [Imodium A-D] 2 mg PO DAILY PRN 02/24/20 Methadone HCl 2.5 mg PO BID 02/24/20 Methocarbamol [Robaxin] 1 tab PO TID 02/24/20 Nystatin 500,000U/5ML [Mycostatin] 5 ml PO 4X/DAY 02/24/20 Polyethylene Glycol 3350 17 gm PO DAILY PRN PRN 02/24/20 Sorafenib Tosylate [Nexavar] 200 mg PO BID 02/24/20 Surgical History: Surgical History (Last Reviewed 02/24/20 @ 14:[address] Noemi Tyson MD) S/P cardiac cath (Chronic) Z98.890 2010 History of partial hysterectomy Z98.890, Z90.710 Surgical History: - Psychiatric History: No pertinent psych hx Lives: With Family Smoking Status: Former smoker Alcohol: None Drugs: None - *Family History Maternal Family History: Family History (Last Reviewed 01/18/19 @ 15:03 by Roxanne Genao) Unknown Arthritis Skin cancer Asthma Bleeding disorder Breast cancer Diabetes Heart disease Hypertension High cholesterol Cancer Paternal Family History: Family History (Last Reviewed 01/18/19 @ 15:03 by Roxanne Genao) Unknown Arthritis Skin cancer Asthma Bleeding disorder Breast cancer Diabetes Heart disease Hypertension High cholesterol Cancer Review of Systems Constitutional: Reports: Anorexia, Weakness, Fatigue. Denies: Chills, Fever Eyes: Denies: Blurred vision, Double vision, Drainage, Redness HEENT: Denies: Difficulty Hearing, Ear Pain, Eye Pain, Nasal Congestion, Sore Throat Cardiovascular: Denies: Chest Pain, Claudication, Chest Pressure, Edema, Heaviness, Palpitations, Syncope Respiratory: Denies: Cough, Pleuritic Pain, Shortness of Breath, Sputum production, Wheezing Gastrointestinal: Reports: Diarrhea, Nausea, Vomiting. Denies: Abdominal Pain, Constipation Genitourinary: Denies: Dysuria, Frequency, Hematuria Musculoskeletal: Denies: Arm Pain, Back Pain, Foot Pain Skin: Reports: Dryness. Denies: Rash Neurological: Denies: Balance problems, Double vision, Change in Speech, Slurred speech, Confusion, Headaches, Incoordination, Numbness Psychiatric: Denies: Anxiety, Depression Endocrine: Denies: Change in Body Habitus, Polydipsia, Polyuria VTE Information - Inpt Only VTE Present on Admission: No VTE Mechan Device Prophylaxis: None VTE Pharm Prophylaxis ordered?: Yes - Physical Exam Vitals/I&O's: Vital Signs Temp Pulse Resp BP Pulse Ox 99.8 F H 98 15 145/66 H 93 02/24/20 14:01 02/24/20 14:01 02/24/20 14:01 02/24/20 14:01 02/24/20 14:01 Oxygen Flow Rate (L/min) 2 Oxygen Delivery Method Nasal Cannula Weight: 141 lb 5.061 oz Body Mass Index (BMI) 23.5 General: Alert, Cooperative, No apparent distress, - - Oriented x2, disoriented to time. HEENT: Atraumatic, PERRLA, EOMI, Normocephalic Oral: No Gingival or Mucosal Lesions/ Ulcerations, Dry Mucosa Neck: Supple, No JVD, Negative Carotid Bruits, Trachea Midline, Thyroid Normal Size and Texture Lungs: Clear to auscultation, Normal air movement, No rhonchi, No wheeze, No rales, Diminished Cardiovascular: Regular rate, Regular Rhythm, Normal S1, Normal S2, PMI Normal, Tachycardic Abdomen: Bowel Sounds Present, Soft, Non Tender, Non-Distended, No Hepato-splenomegaly Extremities: No clubbing, No cyanosis, Edema Skin: No rashes, No breakdown Lymphatic: No Cervical, Supraclavicular, or Inguinal Adenopathy Neurological: Cranial nerves II-XII grossly intact, Motor Exam 5/5 strength throughout Psych/Mental Status: Appropriate, Flat Affect Laboratory Results 02/24/20 12:50: WBC 8.2, RBC 3.31 L, Hgb 8.7 L, Hct 28.2 L, MCV 85.2, MCH 26.3 L, MCHC 30.9 L, RDW Std Deviation 52.5 H, RDW Coeff of [place] 16.8 H, Plt Count 320, MPV 10.4, Immature Gran % (Auto) 0.400, Neut % (Auto) 84.0 H, Lymph % (Auto) 6.2 L, [place] % (Auto) 9.1, Eos % (Auto) 0.1, Baso % (Auto) 0.2, Absolute Neuts (auto) 6.9, Absolute Lymphs (auto) 0.51 L, Nucleated RBC % 0, Hypochromasia 1+ 02/24/20 12:50: PT 14.3, INR 1.2, APTT 30.5 02/24/20 12:50: Sodium 123 L, Potassium 5.8 H, Chloride 95 L, Carbon Dioxide 22.0, Anion Gap 6, BUN 12, Creatinine 1.36 H, Estim Creat Clear Calc 28.20, Est GFR (MDRD) Af Amer 48 L, Est GFR (MDRD) Non-Af 39 L, BUN/Creatinine Ratio 8.8 L, Glucose 179 H, Calcium 8.1 L, Total Bilirubin 0.60, AST 91 H, ALT 59 H, Alkaline Phosphatase 307 H, Troponin I < 0.015, Total Protein 7.1, Albumin 2.7 L, Globulin 4.4 H, Albumin/Globulin Ratio 0.6 L 02/24/20 12:50: Lactic Acid 2.6 H* Clinical Impression(s) from Imaging Studies Chest X-Ray 02/24/20 13:35 IMPRESSION: Small bilateral pleural effusions. Electronically Signed: Erna Monreal, at 14:17 EDT Tel , Service support , Assessment/Plan This is an 84 years old female patient presented to the emergency room because of abnormal labs, weakness, nausea and vomiting as well as fall, found to have SIRS, hyponatremia, hyperkalemia with dehydration. #1 SIRS: Based on low-grade fever, tachycardia and elevated lactic acid. Chest x-ray and urinalysis reviewed as above. At this time, no obvious source of infection. COVID-19 PCR is pending. Plan: Admit to PCU, cardiac monitoring, blood culture, urine culture, stool for enteric pathogens, stool for C. difficile, IV fluids for hydration, Tylenol PRN, Zofran PRN, repeat CBC and CMP tomorrow morning, repeat lactic acid in 3 hours, PT OT evaluation and treatment. At this time, no indication to start patient on IV antibiotics. 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 Clinically, patient is feeling dehydrated. Her creatinine is close to her baseline. Plan: IV fluids with normal saline, input output chart, repeat BMP tomorrow morning. #3 hyperkalemia: Secondary to dehydration in context of stage III chronic kidney disease. Potassium is 5.8. Plan: IV fluids, input output chart, repeat potassium later tonight at 9 PM, repeat BMP tomorrow morning. Patient mentioned that she has been having diarrhea. #4 stage III chronic kidney disease: Baseline creatinine has been around 1.2 to 1.3 mg/dL. Admission creatinine is 1.36, stable at baseline. Plan as above. #5 recent diagnosis of hepatocellular carcinoma: Currently on chemotherapy, follows up with Dr. Thao as outpatient. Continue Nexavar. #6 type 2 diabetes mellitus: ADA diet, Accu-Cheks, insulin sliding scale, continue Levemir and NovoLog, hold metformin, continue Actos. #7 anemia: Probably chronic due to cancer. Unknown baseline hemoglobin. Admission globin is 8.7 g/dL. No evidence of active bleeding. Plan to continue iron supplement, repeat CBC tomorrow morning. #8 hypertension: Blood pressure stable, continue Avapro. #9 GERD/hiatal hernia/Chase's esophagus: Start IV Protonix as patient has been having nausea and vomiting. #10 DVT prophylaxis: Subcu heparin. This note was generated with [employer] dictation software. It may contain incorrect words, spelling, and punctuation that were not noted in checking the note before signing. Inpatient E&M: [id number] Init Hosp L3
[2020-02-24 14:36] LABS: Mucous, Urine 0 SEEN /hpf (<or=2+); Red Blood Cells-Urine 0 SEEN /hpf (0-5); Squamous Epithelial Cells - UA 0 SEEN /hpf (5-10); White Blood Cells 0 SEEN /hpf (0-5)
[2020-02-24 14:49] LABS: Color, Urine Yellow (Yellow); Glucose, Dipstick Normal (Normal); Ketone-Dipstick Negative (Negative); Leukocyte Esterase-Dipstick Negative /ul (Negative); Nitrite-Dipstick Negative (Negative); Occult Blood-Urine Negative /ul (Negative); Protein-Dipstick Negative (Negative); Urine Bilirubin Dipstick Negative (Negative); Urine Clarity Clear (Clear); Urine Urobilinogen Normal (Normal)
[2020-02-24 14:56] LABS: Bacteria RARE /hpf (None Seen)
--- NOTE | 2020-02-24 15:23 | ED.RN ---
report called to myles
[2020-02-24] MEDS: 0.9% Normal Saline 1,000 ML 100 ML IV (17:08)
[2020-02-24] MEDS: Iron Polysaccharide Complex 150 MG CAPSULE PO (17:09)
[2020-02-24 17:13] LABS: Reflex Lactate? Y
[2020-02-24] MEDS: Insulin Lispro 100 UNIT/ML INSULN.PEN SC ×2 (17:13)
[2020-02-24 17:46] LABS: Bedside Glucose 185 mg/dL (70-110)
[2020-02-24 18:16] LABS: Base Excess -4 mmol/L (-2 to +2); Bicarbonate 21.1 mmol/L (22-26); Blood Gas Specimen Type ART; FI02 50; O2 Delivery Device Venti Mask; PO2 58 mmHG (75-100); SITE L Brach; SO2 90 % (95-99); Total Carbon Dioxide 22 mmol/L; pCO2 35.2 mmHg (35-45); pH 7.39 (7.35-7.45)
[2020-02-24 18:26] LABS: Lactic Acid 1.2 mmol/L (0.4-1.9)
--- NOTE | 2020-02-24 19:29 | CPS ---
Patient needs reinforcement on SMI.
[2020-02-24] MEDS: Heparin Injection (Vial) 5,000 UNIT/ML VIAL 5000 UNIT SC (21:47)
[2020-02-24] MEDS: Gabapentin 100 MG Capsule 200 MG PO (21:47)
[2020-02-24] MEDS: 0.9% Saline Lock 10 ML Syringe IV (21:57)
[2020-02-24 22:11] LABS: Bedside Glucose 130 mg/dL (70-110)
[2020-02-24 22:17] LABS: Potassium 5.6 mmol/L (3.5-5.1)
[2020-02-25] VITALS (17 sets, daily range): BP systolic 131–165; BP diastolic 45–85; PULSE 90–118; RESP 12–24; TEMP 36.5–37.8; O2SAT 88–97
[2020-02-25] MEDS: HYDROcodone Bitartrate/Apap 5/325 Tablet PO (02:03)
[2020-02-25 05:23] LABS: Absolute Lymphocyte Count 0.85 X10^3/uL (0.83-4.51); Absolute Neutrophil Count 5.2 X10^3/uL (2.0-7.7); Basophil# 0.04 X10^3/uL; Basophil% 0.6 % (0-1); Eosinophils% 1.5 % (0-5); Hematocrit 25.2 % (37-47); Lymphocyte # 0.85 X10^3/ul (4.0); Lymphocyte % 12.3 % (19-41); Mean Corp Hgb Conc 31.7 g/dL (32-36); Mean Corpuscular Hgb 26.6 pg (27.0-32.0); Mean Corpuscular Volume 83.7 fL (81-99); Mean Platelet Vol. 9.4 fl (6.2-12.0); Monocyte# 0.65 X10^3/uL; Monocyte% 9.4 % (0-10); NRBC Flagged by Analyzer 0 % (0-5); Neutrophil # 5.23 X10^3/uL (2.7-7.7); Neutrophil % 75.9 % (47-70); Platelet Count 241 K/mm3 (150-450); RBC Distribution Width SD 51.4 fl (35.1-43.9); Red Blood Count 3.01 M/mm3 (4.2-5.4); White Blood Count 6.9 K/mm3 (4.4-11.0)
[2020-02-25 05:45] LABS: ALB/GLOB Ratio 0.6 RATIO (0.9-2.4); AST(SGOT) 186 U/L (15-37); Alanine Aminotransfer ALT/SGPT 84 U/L (13-56); Albumin, Serum 2.2 g/dL (3.2-5.0); Alkaline Phosphatase 245 U/L (45-117); Anion Gap 6 (5-15); BUN 10 mg/dL (7-18); BUN/Creat Ratio 10.8 RATIO (10-20); Calcium,Total 7.7 mg/dL (8.5-10.1); Chloride 98 mmol/L (98-107); Creatinine, Serum 0.93 mg/dL (0.55-1.02); EST Glomerular Filtration Rate 61 mL/min (>60); Est Glom Filt Rate - Afr Amer 74 mL/min (>60); Estimated Creatinine Clearance 41.24 ml/min; Globulin 3.8 g/dL (2.2-4.2); Glucose 114 mg/dL (74-106); Potassium 5.2 mmol/L (3.5-5.1); Sodium Level 127 mmol/L (136-145)
[2020-02-25] MEDS: Heparin Injection (Vial) 5,000 UNIT/ML VIAL 5000 UNIT SC ×2 (09:01→21:50)
[2020-02-25] MEDS: Pioglitazone Hydrochloride 15 MG Tablet PO (09:01)
[2020-02-25] MEDS: Iron Polysaccharide Complex 150 MG CAPSULE PO ×2 (09:01→16:18)
--- NOTE | 2020-02-25 09:05 | CASEMGMT ---
[facility]IN[facility] CM Assessment Note Patient is [place], she has difficulty understanding. Patient is awake and alert and able to participate in assessment. Patient states she lives with her son Hayden Angela in one story home. Patient states her son takes good care of me. Per patient she plans to return home on discharge if able. Presentation: weakness, falls @ home. Diagnosis: SIRS, Hyponatremia, NA 123, Lactic Acid 2.6 PMH: current chemo for liver cancer PCP: Dr. Salmon Specialists: Oncology Insurance: [employer] Medicare PPO Preferred Pharmacy: [facility] Prescription Benefit: yes LNOK: Son, Hayden Angela Living Arrangements: Lives in one sotry home with her son. She states she is able to do own bathing and dressing. Has tub/shower with bench and states she is having difficulty getting in and out of tub. Son makes meals, takes her shopping and provides transportation. Tranportation: family drives DME: walker, bench, cane HHC: none currently SNF: none Patient DC Goals: Home DC Plan: undetermined. PT/OT evaluations are pending. If dc needs arise, may need to speak with son. Clarisse CAMPOSN RN ACM
[2020-02-25 09:08] LABS: Osmolality, Serum 266 mOsm/KG (280-301)
[2020-02-25 09:20] LABS: Bedside Glucose 93 mg/dL (70-110)
[2020-02-25 09:33] LABS: Urine Sodium 36 mmol/L (Not Establ.)
--- NOTE | 2020-02-25 10:19 | PN_ITS ---
Patient Problems: Active and Suspected Problems (Last Updated 02/24/20 @ 13:[address] Noemi Tyson MD) Fever (Acute) Hyponatremia (Acute) Anemia (Acute) Generalized weakness (Acute) Reason for Visit: hyponatremia Subjective: Feeling better. Still fatigued. Vitals/I&O's: Vital Signs Temp Pulse Resp BP Pulse Ox 36.7 C 90 16 165/67 H 93 02/25/20 08:00 02/25/20 08:00 02/25/20 08:00 02/25/20 08:00 02/25/20 08:00 Oxygen Flow Rate (L/min) 6 Oxygen Delivery Method Nasal Cannula Weight: 62.1 kg Body Mass Index (BMI) 21.4 Intake and Output for Last 24 Hours 02/23/20 02/24/20 02/25/20 23:59 23:59 23:59 Intake Total 1201 / 1201 759 / 759 Output Total 425 / 425 350 / 350 Balance 776 / 776 409 / 409 General: Alert, No apparent distress HEENT: Atraumatic, Normocephalic Oral: Moist Mucosa, No Gingival or Mucosal Lesions/ Ulcerations Neck: No Nodes, Thyroid Normal Size and Texture Lungs: Normal air movement, No rhonchi, No wheeze, - - crackles bilateral bases Cardiovascular: Regular rate, Regular Rhythm, Normal S1, Normal S2, No murmurs Abdomen: Bowel Sounds Present, Soft, Non Tender, Non-Distended, No Hepato- splenomegaly Extremities: No edema, No Calf Tenderness Psych/Mental Status: Normal Affect, Appropriate Laboratory Results 02/24/20 12:50: WBC 8.2, RBC 3.31 L, Hgb 8.7 L, Hct 28.2 L, MCV 85.2, MCH 26.3 L , MCHC 30.9 L, RDW Std Deviation 52.5 H, RDW Coeff of Torey 16.8 H, Plt Count 320, MPV 10.4, Immature Gran % (Auto) 0.400, Neut % (Auto) 84.0 H, Lymph % (Auto) 6.2 L, Wallace % (Auto) 9.1, Eos % (Auto) 0.1, Baso % (Auto) 0.2, Absolute Neuts (auto) 6.9, Absolute Lymphs (auto) 0.51 L, Nucleated RBC % 0, Hypochromasia 1+ 02/24/20 12:50: PT 14.3, INR 1.2, APTT 30.5 02/24/20 12:50: Sodium 123 L, Potassium 5.8 H, Chloride 95 L, Carbon Dioxide 22.0, Anion Gap 6, BUN 12, Creatinine 1.36 H, Estim Creat Clear Calc 28.20, Est GFR (MDRD) Af Amer 48 L, Est GFR (MDRD) Non-Af 39 L, BUN/Creatinine Ratio 8.8 L, Glucose 179 H, Calcium 8.1 L, Total Bilirubin 0.60, AST 91 H, ALT 59 H, Alkaline Phosphatase 307 H, Troponin I < 0.015, Total Protein 7.1, Albumin 2.7 L, Globulin 4.4 H, Albumin/Globulin Ratio 0.6 L 02/24/20 12:50: Lactic Acid 2.6 H* 02/24/20 14:15: Urine Color Yellow, Urine Clarity Clear, Urine pH 5.0, Ur Specific Bard 1.010, Urine Protein Negative, Urine Glucose (UA) Normal, Urine Ketones Negative, Urine Occult Blood Negative, Urine Nitrite Negative, Urine Bilirubin Negative, Urine Urobilinogen Normal, Ur Leukocyte Esterase Negative, Urine RBC 0 SEEN, Urine WBC 0 SEEN, Ur Squamous Epith Cells 0 SEEN, Urine Bacteria RARE, Urine Mucus 0 SEEN 02/24/20 14:15: Urine Osmolality Pending 02/24/20 14:15: Ur Random Sodium 36 02/24/20 14:40: COVID-19 (JOSSELYN) Negative 02/24/20 17:04: POC Glucose 185 H 02/24/20 17:30: Lactic Acid 1.2 02/24/20 18:10: Specimen Type ART, Sample Site L Brach, pH 7.39, Bicarbonate Actual 21.1 L, Total CO2 22, Base Excess -4 L, O2 Saturation 90 L, O2 % 50, ABG pCO2 35.2, ABG pO2 58 L, O2 Delivery Device Venti Mask 02/24/20 21:39: POC Glucose 130 H 02/24/20 21:40: Potassium 5.6 H 02/25/20 05:15: WBC 6.9, RBC 3.01 L, Hgb 8.0 L, Hct 25.2 L, MCV 83.7, MCH 26.6 L , MCHC 31.7 L, RDW Std Deviation 51.4 H, RDW Coeff of Torey 17.0 H, Plt Count 241, MPV 9.4, Immature Gran % (Auto) 0.300, Neut % (Auto) 75.9 H, Lymph % (Auto) 12.3 L, Wallace % (Auto) 9.4, Eos % (Auto) 1.5, Baso % (Auto) 0.6, Absolute Neuts (auto) 5.2, Absolute Lymphs (auto) 0.85, Nucleated RBC % 0 02/25/20 05:15: Sodium 127 L, Potassium 5.2 H, Chloride 98, Carbon Dioxide 23.0, Anion Gap 6, BUN 10, Creatinine 0.93, Estim Creat Clear Calc 41.24, Est GFR (MDRD) Af Amer 74, Est GFR (MDRD) Non-Af 61, BUN/Creatinine Ratio 10.8, Glucose 114 H, Calcium 7.7 L, Total Bilirubin 0.60, AST 186 H, ALT 84 H, Alkaline Phosphatase 245 H, Total Protein 6.0 L, Albumin 2.2 L, Globulin 3.8, Albumin/Globulin Ratio 0.6 L 02/25/20 07:51: POC Glucose 93 02/25/20 07:55: Serum Osmolality 266 L Current Medications Hydrocodone Bitart/Acetaminophen ([place] 5mg-325mg) 1 tablet PO Q4H PRN PRN PRN Reason: Pain score 1-10/10 Last Admin: 02/25/20 02:03 Dose: 1 tablet Documented by: Gabapentin (Neurontin) 200 mg PO QHS [facility] Last Admin: 02/24/20 21:47 Dose: 200 mg Documented by: Heparin Sodium (Porcine) (Heparin Na) 5,000 unit SC Q12 [facility] Last Admin: 02/25/20 09:01 Dose: 5,000 unit Documented by: Pantoprazole Sodium 40 mg/ (Sodium Chloride) 110 mls @ 330 mls/hr IV Q12 [facility] Last Infusion: 02/25/20 09:25 Dose: Infused Documented by: Sodium Chloride () 250 mls @ 15 mls/hr IV .[id number] PRN PRN Reason: Saline Flush Sodium Chloride () 250 mls @ 15 mls/hr IV .[id number] PRN PRN Reason: Additional IVPB Infusion Insulin Glargine (Lantus (Bkc)) 15 units SC DAILY [facility] Last Admin: 02/25/20 09:01 Dose: 15 u Documented by: Insulin Human Lispro (Humalog Kwikpen (Bk)) 0 unit SC ACHS [facility]; Protocol Last Admin: 02/25/20 08:12 Dose: Not Given Documented by: Insulin Human Lispro (Humalog Kwikpen (Bk)) 5 unit SC DINNER [facility] Last Admin: 02/24/20 17:13 Dose: 5 u Documented by: Irbesartan (Avapro) 150 mg PO DAILY [facility] Last Admin: 02/25/20 10:01 Dose: 150 mg Documented by: Nutritional Formula (Lactose Free) (Glucerna Shake) 120 ml PO TIDCM [facility] Last Admin: 02/25/20 09:02 Dose: Not Given Documented by: Ondansetron HCl (Zofran) 4 mg IV Q8H PRN PRN PRN Reason: NAUSEA/VOMITING Pioglitazone HCl (Actos) 15 mg PO DAILY [facility] Last Admin: 02/25/20 09:01 Dose: 15 mg Documented by: Polyethylene Glycol (Miralax) 17 gm PO DAILY PRN PRN PRN Reason: Constipation Polysaccharide [facility] ([facility]rex 150) [facility] Last Admin: 02/25/20 09:01 Dose: 150 mg Documented by: Repaglinide (Prandin) 1 mg PO BID@0800,1200 [facility] Last Admin: 02/25/20 09:01 Dose: 1 mg Documented by: Sodium Chloride () 10 - 40 ml IV UD PRN PRN Reason: SALINE FLUSH Last Admin: 02/24/20 21:57 Dose: 20 ml Documented by: Sorafenib (Nexavar) 200 mg PO BID [facility] Last Admin: 02/25/20 10:01 Dose: 200 mg Documented by: Temazepam (Restoril) 15 mg PO QHS PRN PRN PRN Reason: INSOMNIA STROKE Vital Signs/Narrative: Vital Signs Temp Pulse Resp BP Pulse Ox 02/25/20 08:00 36.7 C 90 16 165/67 H 93 02/25/20 07:00 95 Medical Necessity - Tobacco Use Smoking Status: Former smoker Assessment/Plan All Active Problems (Last Updated 02/24/20 @ 13:[address] Noemi Tyson MD) Fever (Acute) Hyponatremia (Acute) Anemia (Acute) Generalized weakness (Acute) 1. SIRS * etiology unclear, though may be related to gastroenteritis * COVID-19 negative * continue to hold off abx 2. Lactic acidosis * resolved * likely due to gastroenteritis 3. Hyponatremia * check urine studies * check TSH * slightly improved * continue with IVF 4. 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 VTE prophylaxis: heparin Inpatient E&M: 22598 Subs Hosp L2
[2020-02-25] MEDS: 0.9% Normal Saline 1,000 ML 75 ML IV (10:51)
[2020-02-25 11:07] LABS: Osmolality, Urine 282 mOsm/KG
[2020-02-25 11:16] LABS: Bedside Glucose 162 mg/dL (70-110)
[2020-02-25] MEDS: Insulin Lispro 100 UNIT/ML INSULN.PEN SC ×3 (11:17→18:41)
[2020-02-25] MEDS: Glucerna Shake 120 ML LIQUID PO ×2 (12:16→16:19)
--- NOTE | 2020-02-25 15:05 | CASEMGMT ---
Social Work Note Per rn immunology questions, pt has completed HCPOA and LW but haven't provided copies to [facility] and pt is not able to bring in copies. Sharron Trinh MANAGER OF [employer], [employer]
[2020-02-25 16:35] LABS: Bedside Glucose 202 mg/dL (70-110)
--- NOTE | 2020-02-25 17:44 | EKG12_ITS ---
Test Reason : TACHYCARDIA Blood Pressure : / mmHG Vent. Rate : 141 BPM Atrial Rate : 141 BPM P-R Int : 136 ms QRS Dur : 108 ms QT Int : 310 ms P-R-T Axes : 000 -12 -85 degrees QTc Int : 474 ms Sinus tachycardia Nonspecific ST and T wave abnormality Abnormal ECG When compared with ECG of 24-FEB-2020 13:37, MANUAL COMPARISON REQUIRED, DATA IS UNCONFIRMED Confirmed by BERNARDO GREGG ([id number]), business editor KRISTIN ACEVEDO ([id number]) on 03/02/2020 9:11:08 AM Referred By: MARCO A Confirmed By:BERNARDO GREGG
--- NOTE | 2020-02-25 17:46 | NURSING ---
pt states she has had chest pain since this morning but gotten worse in the last hour. Pt never mentioned Chest pain to Lesley Price. pt attempting to eat at this time. States CP goes to her Lt shoulder, down her arm.
--- NOTE | 2020-02-25 17:52 | NURSING ---
CPS here to perform 12 leak EKG.
--- NOTE | 2020-02-25 18:07 | NURSING ---
This nurse sent a picture of the 12 lead EKG that was just done d/t CP. Also sent a picture both via Cortext of an EKG from yesterday 02/24/20. Dr. Lester saw both and said no STEMI. Will continue to monitor.
--- NOTE | 2020-02-25 19:05 | NURSING ---
SP02 up to 91% now on 5L Nc. her finger was cold on the reading that spo2 read 88-89%.
--- NOTE | 2020-02-25 19:51 | NURSING ---
pt has had no stool in over 24hrs since admit
--- NOTE | 2020-02-25 21:05 | NURSING ---
Respiratory therapy notified of need to see this pt. Pt is 91% on 35% venti mask and is tachycardia. They will come see the pt.
--- NOTE | 2020-02-25 21:32 | PCM.PN.BLA ---
Progress Note Nurse reported crackles on examination and patient requiring a Venturi mask. Oxygen saturation is 90% on venturi-mask Patient was examined at the bedside. Patient is on Lasix. Heart sounds S1-S2 present tachycardia. Wheezing Dyspnea Stop IV fluids Placed on scheduled DuoNeb and Get stat chest x-ray. STROKE Vital Signs/Narrative: Vital Signs Temp Pulse Resp BP Pulse Ox 02/25/20 21:00 98.2 F 110 H 20 H 158/85 H 91 02/25/20 19:05 91 02/25/20 18:30 97.7 F L 118 H 24 H 154/72 H 89 02/25/20 17:48 98.3 F 116 H 24 H 148/68 H 92
--- NOTE | 2020-02-25 21:45 | NURSING ---
spoke to xray on phone they will be up to take images
[2020-02-25] MEDS: Gabapentin 100 MG Capsule 200 MG PO (21:49)
--- NOTE | 2020-02-25 22:01 | RAD_ITS ---
STUDY: X-RAY CHEST REASON FOR EXAM: Female, 84 years old. INCREASED SOB TECHNIQUE: Single frontal view of the chest. COMPARISON: 02/24/2020 FINDINGS: Evolving bilateral perihilar alveolar disease. Progressing bilateral pleural effusions. Normal size heart. Normal mediastinum and pillo. Normal visualized pulmonary arteries. Normal visualized aortic arch and descending thoracic aorta. Normal visualized thoracic spine. Normal visualized ribs, clavicles, and shoulders. There is no demonstrated abnormality of the visualized soft tissue structures of the upper abdomen. RAD/Chest 1 View (Portable) IMPRESSION: Evolving bilateral perihilar alveolar disease. Progressing bilateral pleural effusions. Electronically Signed: Alonso Sales MD at 22:53 EDT Tel , Service support ,
[2020-02-25 22:05] LABS: Bedside Glucose 122 mg/dL (70-110)
[2020-02-25] MEDS: Ipratropium/Albuterol Sulfate 3 ML AMPUL.NEB INHALATION (23:37)
[2020-02-26] VITALS (22 sets, daily range): BP systolic 110–145; BP diastolic 56–86; PULSE 62–143; RESP 17–22; TEMP 36.2–37.4; O2SAT 91–100
--- NOTE | 2020-02-26 01:10 | NURSING ---
tachycardic, pt denies chest pain, sob or any symptoms, denies feeling her heart beat fast. cps called for stat ekg will notify dr
--- NOTE | 2020-02-26 01:23 | NURSING ---
stat ekg done, texted dr. william resting quietly
--- NOTE | 2020-02-26 01:28 | PCM.PN.BLA ---
Progress Note Patient a persistence of tachycardia. Chest x-ray showed bilateral pulmonary infiltrates. We will get a BNP. Will start patient on ceftriaxone and azithromycin. Get MRSA nasal swab. Check procalcitonin. STROKE Vital Signs/Narrative: Vital Signs Temp Pulse Resp BP Pulse Ox 02/26/20 01:04 99.3 F H 143 H 20 H 126/56 H 93 02/25/20 23:38 92 02/25/20 23:37 104 H 18 02/25/20 23:10 98.8 F 100 20 H 149/83 H 96
--- NOTE | 2020-02-26 01:32 | EKG12_ITS ---
Test Reason : CP Blood Pressure : / mmHG Vent. Rate : 117 BPM Atrial Rate : 117 BPM P-R Int : 136 ms QRS Dur : 102 ms QT Int : 318 ms P-R-T Axes : 089 007 071 degrees QTc Int : 443 ms Sinus tachycardia Septal infarct , age undetermined Abnormal ECG No previous ECGs available Confirmed by BERNARDO GREGG ([id number]), medical transcription editor CHRISTINA BUENROSTRO ([id number]) on 03/02/2020 11:22:51 AM Referred By: SISI Confirmed By:BERNARDO GREGG
[2020-02-26] MEDS: Ceftriaxone 1 GM/50 ML BAG IV ×2 (01:41→22:22)
[2020-02-26] MEDS: 0.9% Saline Lock 10 ML Syringe IV ×7 (01:41→23:40)
[2020-02-26 02:21] LABS: Absolute Lymphocyte Count 0.63 X10^3/uL (0.83-4.51); Absolute Neutrophil Count 4.3 X10^3/uL (2.0-7.7); Basophil# 0.04 X10^3/uL; Basophil% 0.6 % (0-1); Eosinophil# 1.11 X10^3/uL; Eosinophils% 16.3 % (0-5); Hematocrit 28.7 % (37-47); Hemoglobin 8.8 g/dL (12.0-15.0); Lymphocyte # 0.63 X10^3/ul (4.0); Lymphocyte % 9.2 % (19-41); Mean Corp Hgb Conc 30.7 g/dL (32-36); Mean Corpuscular Hgb 25.7 pg (27.0-32.0); Mean Corpuscular Volume 83.7 fL (81-99); Mean Platelet Vol. 10.1 fl (6.2-12.0); Monocyte# 0.73 X10^3/uL; Monocyte% 10.7 % (0-10); NRBC Flagged by Analyzer 0 % (0-5); Neutrophil # 4.29 X10^3/uL (2.7-7.7); Neutrophil % 62.9 % (47-70); Platelet Count 275 K/mm3 (150-450); RBC Distribution Width CV 17.1 % (11.6-14.6); RBC Distribution Width SD 51.9 fl (35.1-43.9); Red Blood Count 3.43 M/mm3 (4.2-5.4); White Blood Count 6.8 K/mm3 (4.4-11.0)
[2020-02-26 02:51] LABS: ALB/GLOB Ratio 0.6 RATIO (0.9-2.4); AST(SGOT) 270 U/L (15-37); Alanine Aminotransfer ALT/SGPT 130 U/L (13-56); Albumin, Serum 2.2 g/dL (3.2-5.0); Alkaline Phosphatase 263 U/L (45-117); Anion Gap 9 (5-15); BUN 9 mg/dL (7-18); BUN/Creat Ratio 10.3 RATIO (10-20); Calcium,Total 7.9 mg/dL (8.5-10.1); Chloride 100 mmol/L (98-107); Creatinine, Serum 0.88 mg/dL (0.55-1.02); EST Glomerular Filtration Rate 66 mL/min (>60); Est Glom Filt Rate - Afr Amer 79 mL/min (>60); Estimated Creatinine Clearance 43.59 ml/min; Globulin 3.8 g/dL (2.2-4.2); Glucose 162 mg/dL (74-106); Potassium 4.6 mmol/L (3.5-5.1); Sodium Level 129 mmol/L (136-145)
[2020-02-26 02:59] LABS: Procalcitonin 1.97 ng/mL (0.00-0.09)
[2020-02-26 03:26] LABS: BNP,B-Type NATRIURETIC PEPTIDE 1683.5 pg/mL (0-100)
[2020-02-26 04:28] LABS: M R Staph aureus DNA By PCR Negative (Negative); Probe Check PASS; Specimen Processing Control PASS
[2020-02-26] MEDS: HYDROcodone Bitartrate/Apap 5/325 Tablet PO ×2 (06:40→23:35)
[2020-02-26] MEDS: Insulin Lispro 100 UNIT/ML INSULN.PEN SC ×3 (06:40→21:24)
[2020-02-26 06:41] LABS: Bedside Glucose 204 mg/dL (70-110)
[2020-02-26] MEDS: Pioglitazone Hydrochloride 15 MG Tablet PO (08:20)
[2020-02-26] MEDS: Heparin Injection (Vial) 5,000 UNIT/ML VIAL 5000 UNIT SC ×2 (08:20→21:24)
[2020-02-26] MEDS: Iron Polysaccharide Complex 150 MG CAPSULE PO ×2 (08:22→18:01)
--- NOTE | 2020-02-26 08:23 | ECHOD_ITS ---
Reason For Study: CHF Procedure This was a 2D Doppler, Color Flow transthoracic echocardiogram. Exam performed portable in patient room. Left Ventricle Moderately dilated left ventricle. No LV thrombus. The estimated ejection fraction is 20-25 %. There is severe global hypokinesis of the left ventricle. Right Ventricle Moderately dilated right ventricle. Mild segmental dysfunction of right ventricle. Atria The left atrium is moderately enlarged. The right atrium is moderately enlarged. Normal atrial septum. Mitral Valve Moderate mitral annular calcification. There is no vegetation seen on the mitral valve. Mild (1+) mitral valve insufficiency. Tricuspid Valve Mild tricuspid valve insufficiency. Aortic Valve Mild diffuse aortic valve thickening. There is no aortic valvular vegetation. There is no aortic stenosis. Pulmonic Valve Normal pulmonic valve. Great Vessels Normal aortic root. The inferior vena cava is dilated. No collapse of the inferior vena cava. Pericardium/Pleural No pericardial effusion. Moderate size right pleural effusion. MMode/2D Measurements & Calculations LVIDd: 4.2 cm IVSd: 1.1 cm LVOT diam: 2.2 cm LVIDs: 3.4 cm LVPWd: 1.0 cm LVOT area: 4.0 cm2 RVDd: 3.1 cm FS: 19.6 % Ao root diam: 3.2 cm LAV(MOD-bp): 38.8 ml LVAd ap4: 17.5 cm2 LAV(MOD-bp) Indexed: 23.0 ml/m2 EDV(MOD-sp4): 42.8 ml LAV(MOD-sp2): 29.5 ml EDV(sp4-el): 41.2 ml LAV(MOD-sp4): 48.3 ml LVAs ap4: 15.1 cm2 ESV(MOD-sp4): 32.9 ml ESV(sp4-el): 31.9 ml EF(MOD-sp4): 23.2 % EF(sp4-el): 22.7 % SV(MOD-sp4): 9.9 ml SV(sp4-el): 9.4 ml LA A4 area: 18.5 cm2 LA dimension(2D): 3.3 cm RA A4 area: 17.0 cm2 Doppler Measurements & Calculations MV E max carey: 114.8 cm/sec Ao V2 max: 142.2 cm/sec LV V1 max: 102.4 cm/sec Ao max P.1 mmHg LV V1 max P.2 mmHg PATRICIA(V,D): 2.9 cm2 PA V2 max: 89.7 cm/sec TR max carey: 261.5 cm/sec TR max P.4 mmHg Interpretation Summary No LV thrombus The estimated ejection fraction is 20-25 %. There is severe global hypokinesis of the left ventricle. Mild (1+) mitral valve insufficiency. Mild tricuspid valve insufficiency. No pericardial effusion. Moderate size right pleural effusion. Ordering Physician: Diaz Lester Referring Physician: Juliocesar Salmon M.D. Performed By: Isabelle Ortega RDCS
--- NOTE | 2020-02-26 09:26 | NURSING ---
supervisor claims informed of Dr. Lester's verbal orders to move to PCU
[2020-02-26] MEDS: Furosemide 40 MG/4 ML Vial IV ×3 (09:38→18:01)
--- NOTE | 2020-02-26 09:46 | NURSING ---
lasix given prior to going down to PCU. Report called to Molly ABDI.
--- NOTE | 2020-02-26 09:59 | NURSING ---
This nurse called patients surekha Blake and informed her that pt is in [id number].
[2020-02-26] MEDS: Glucerna Shake 120 ML LIQUID PO ×2 (11:46→17:53)
[2020-02-26 11:50] LABS: Bedside Glucose 140 mg/dL (70-110)
--- NOTE | 2020-02-26 12:03 | PN_ITS ---
Patient Problems: Active and Suspected Problems (Last Updated 02/24/20 @ 13:[address] Noemi Tyson MD) Fever (Acute) Hyponatremia (Acute) Anemia (Acute) Generalized weakness (Acute) Reason for Visit: hyponatremia Subjective: Events noted. Breathing well at the moment. Was put on a VM mask, that was eventually weaned off. Vitals/I&O's: Vital Signs Temp Pulse Resp BP Pulse Ox 36.9 C 142 H 17 129/78 H 93 02/26/20 11:00 02/26/20 11:00 02/26/20 11:47 02/26/20 11:00 02/26/20 11:47 Oxygen Flow Rate (L/min) 5 Oxygen Delivery Method Nasal Cannula Weight: 62.1 kg Body Mass Index (BMI) 21.4 Intake and Output for Last 24 Hours 02/24/20 02/25/20 02/26/20 23:59 23:59 23:59 Intake Total 1201 / 1201 2107.75 / 2107.75 481.75 / 481.75 Output Total 425 / 425 1000 / 1000 1300 / 1300 Balance 776 / 776 1107.75 / 1107.75 -818.25 / -818.25 General: Alert, No apparent distress HEENT: Atraumatic, Normocephalic Oral: Moist Mucosa, No Gingival or Mucosal Lesions/ Ulcerations Neck: No Nodes, Thyroid Normal Size and Texture Lungs: Diminished, - - crackles in bases bilaterally. Cardiovascular: Regular rate, Regular Rhythm, Normal S1, Normal S2 Abdomen: Bowel Sounds Present, Soft, Non Tender, Non-Distended Extremities: No Calf Tenderness, Edema Skin: No rashes, No breakdown Musculoskeletal: No Tenderness to Palpation of Joints or Extremities, No Muscle Wasting Psych/Mental Status: Normal Affect, Appropriate Microbiology Past 72 Hours 02/24/20 14:15 Urine Catheter - Catheter Urine Culture - Final Culture exhibits no growth. Laboratory Results 02/25/20 16:16: POC Glucose 202 H 02/25/20 21:57: POC Glucose 122 H 02/26/20 01:45: MRSA (PCR) Negative 02/26/20 02:13: WBC 6.8, RBC 3.43 L, Hgb 8.8 L, Hct 28.7 L, MCV 83.7, MCH 25.7 L , MCHC 30.7 L, RDW Std Deviation 51.9 H, RDW Coeff of Torey 17.1 H, Plt Count 275, MPV 10.1, Immature Gran % (Auto) 0.300, Neut % (Auto) 62.9, Lymph % (Auto) 9.2 L , [place] % (Auto) 10.7 H, Eos % (Auto) 16.3 H, Baso % (Auto) 0.6, Absolute Neuts (auto) 4.3, Absolute Lymphs (auto) 0.63 L, Nucleated RBC % 0 02/26/20 02:13: Sodium 129 L, Potassium 4.6, Chloride 100, Carbon Dioxide 20.0 L , Anion Gap 9, BUN 9, Creatinine 0.88, Estim Creat Clear Calc 43.59, Est GFR (MDRD) Af Amer 79, Est GFR (MDRD) Non-Af 66, BUN/Creatinine Ratio 10.3, Glucose 162 H, Calcium 7.9 L, Total Bilirubin 0.70, AST 270 H, ALT 130 H, Alkaline Phosphatase 263 H, Total Protein 6.0 L, Albumin 2.2 L, Globulin 3.8, Albumin/Globulin Ratio 0.6 L 02/26/20 02:13: B-Natriuretic Peptide 1683.5 H 02/26/20 02:13: Procalcitonin 1.97 H 02/26/20 06:33: POC Glucose 204 H 02/26/20 11:44: POC Glucose 140 H Current Medications Hydrocodone Bitart/Acetaminophen ([place] 5mg-325mg) 1 tablet PO Q4H PRN PRN PRN Reason: Pain score 1-10/10 Last Admin: 02/26/20 06:40 Dose: 1 tablet Documented by: Albuterol/Ipratropium (Duoneb) 3 ml INHALATION Q4HWA.RT [facility] Last Admin: 02/26/20 07:19 Dose: Not Given Documented by: Furosemide (Lasix) 40 mg IV BID@1000,1800 [facility] Last Admin: 02/26/20 09:38 Dose: 40 mg Documented by: Gabapentin (Neurontin) 200 mg PO QHS [facility] Last Admin: 02/25/20 21:49 Dose: 200 mg Documented by: Heparin Sodium (Porcine) (Heparin Na) 5,000 unit SC Q12 [facility] Last Admin: 02/26/20 08:20 Dose: 5,000 unit Documented by: Pantoprazole Sodium 40 mg/ (Sodium Chloride) 110 mls @ 330 mls/hr IV Q12 [facility] Last Infusion: 02/26/20 09:02 Dose: Infused Documented by: Sodium Chloride () 250 mls @ 15 mls/hr IV .[id number] PRN PRN Reason: Saline Flush Last Infusion: 02/26/20 10:03 Dose: Infused Documented by: Sodium Chloride () 250 mls @ 15 mls/hr IV .[id number] PRN PRN Reason: Additional IVPB Infusion Ceftriaxone Sodium (Rocephin) 1 gm in 50 mls @ 100 mls/hr IV Q24@2200 [facility] Last Infusion: 02/26/20 02:11 Dose: Infused Documented by: Azithromycin 500 mg/ Dextrose 255 mls @ 250 mls/hr IV Q24@2200 [facility] Last Infusion: 02/26/20 03:21 Dose: Infused Documented by: Insulin Glargine (Lantus (Bk)) 15 units SC DAILY [facility] Last Admin: 02/26/20 08:23 Dose: 15 u Documented by: Insulin Human Lispro (Humalog Kwikpen (Bk)) 0 unit SC ACHS [facility]; Protocol Last Admin: 02/26/20 11:44 Dose: Not Given Documented by: Insulin Human Lispro (Humalog Kwikpen (Bk)) 5 unit SC DINNER [facility] Last Admin: 02/25/20 18:41 Dose: 5 u Documented by: Irbesartan (Avapro) 150 mg PO DAILY [facility] Last Admin: 02/26/20 08:24 Dose: 150 mg Documented by: Nutritional Formula (Lactose Free) (Glucerna Shake) 120 ml PO TIDCM [facility] Last Admin: 02/26/20 11:46 Dose: 120 ml Documented by: Ondansetron HCl (Zofran) 4 mg IV Q8H PRN PRN PRN Reason: NAUSEA/VOMITING Pioglitazone HCl (Actos) 15 mg PO DAILY [facility] Last Admin: 02/26/20 08:20 Dose: 15 mg Documented by: Polyethylene Glycol (Miralax) 17 gm PO DAILY PRN PRN PRN Reason: Constipation Polysaccharide Iron Complex (Ferrex 150) 150 mg PO BIDCM [facility] Last Admin: 02/26/20 08:22 Dose: 150 mg Documented by: Repaglinide (Prandin) 1 mg PO BID@0800,1200 [facility] Last Admin: 02/26/20 11:46 Dose: 1 mg Documented by: Sodium Chloride () 10 - 40 ml IV UD PRN PRN Reason: SALINE FLUSH Last Admin: 02/26/20 09:39 Dose: 10 ml Documented by: Sorafenib (Nexavar) 200 mg PO BID [facility] Last Admin: 02/26/20 08:19 Dose: 200 mg Documented by: Temazepam (Restoril) 15 mg PO QHS PRN PRN PRN Reason: INSOMNIA STROKE Vital Signs/Narrative: Vital Signs Temp Pulse Resp BP Pulse Ox 02/26/20 11:47 17 93 02/26/20 11:00 36.9 C 142 H 18 129/78 H 97 02/26/20 10:05 36.9 C 140 H 18 139/86 H 93 02/26/20 09:37 139 H 02/26/20 08:45 36.2 C L 135 H 22 H 129/70 H 93 Medical Necessity - Tobacco Use Smoking Status: Former smoker Assessment/Plan All Active Problems (Last Updated 02/24/20 @ 13:[address] Noemi Tyson MD) Fever (Acute) Hyponatremia (Acute) Anemia (Acute) Generalized weakness (Acute) 1. acute CHF exacerbation * unclear type * on furosemide * check echocardiogram * on empiric abx for now. 2. acute hypoxic respiratory insufficiency * 2/2 above * wean oxygen as tolerated 3. tachycardia * probably 2/2 above * start metoprolol 4. SIRS * etiology unclear, though may be related to gastroenteritis * COVID-19 negative * continue to hold off abx 5. Lactic acidosis * resolved * likely due to gastroenteritis 6. Hyponatremia * check urine studies * check TSH * slightly improved * continue with IVF 7. Hyperkalemia * resolved * no hemolysis 8. HCC * on sorafenib * follow up with Dr. Thao 9. VTE prophylaxis: heparin Inpatient E&M: 82519 Subs Hosp L2
[2020-02-26] MEDS: Metoprolol Tartrate 50 MG Tablet PO ×2 (12:26→21:23)
[2020-02-26 18:01] LABS: Bedside Glucose 213 mg/dL (70-110)
[2020-02-26] MEDS: Ondansetron 4 MG/2 ML Vial IV (18:06)
[2020-02-26] MEDS: Ipratropium/Albuterol Sulfate 3 ML AMPUL.NEB INHALATION (18:48)
[2020-02-26] MEDS: Gabapentin 100 MG Capsule 200 MG PO (21:23)
[2020-02-26 22:00] LABS: Bedside Glucose 187 mg/dL (70-110)
[2020-02-27] VITALS (12 sets, daily range): BP systolic 135–143; BP diastolic 65–72; PULSE 76–103; RESP 16–18; TEMP 36.6–36.8; O2SAT 93–96
[2020-02-27 05:33] LABS: Absolute Lymphocyte Count 0.89 X10^3/uL (0.83-4.51); Absolute Neutrophil Count 3.9 X10^3/uL (2.0-7.7); Basophil# 0.06 X10^3/uL; Basophil% 1.1 % (0-1); Eosinophil# 0.13 X10^3/uL; Eosinophils% 2.3 % (0-5); Hematocrit 28.5 % (37-47); Hemoglobin 8.9 g/dL (12.0-15.0); Lymphocyte # 0.89 X10^3/ul (4.0); Lymphocyte % 15.8 % (19-41); Mean Corp Hgb Conc 31.2 g/dL (32-36); Mean Corpuscular Hgb 25.9 pg (27.0-32.0); Mean Corpuscular Volume 83.1 fL (81-99); Monocyte# 0.62 X10^3/uL; NRBC Flagged by Analyzer 0 % (0-5); Neutrophil # 3.89 X10^3/uL (2.7-7.7); Neutrophil % 69.3 % (47-70); Platelet Count 270 K/mm3 (150-450); RBC Distribution Width CV 17.1 % (11.6-14.6); RBC Distribution Width SD 50.9 fl (35.1-43.9); Red Blood Count 3.43 M/mm3 (4.2-5.4); White Blood Count 5.6 K/mm3 (4.4-11.0)
[2020-02-27 06:13] LABS: Anion Gap 7 (5-15); BUN 12 mg/dL (7-18); BUN/Creat Ratio 9.8 RATIO (10-20); Calcium,Total 7.6 mg/dL (8.5-10.1); Chloride 92 mmol/L (98-107); Creatinine, Serum 1.22 mg/dL (0.55-1.02); EST Glomerular Filtration Rate 45 mL/min (>60); Est Glom Filt Rate - Afr Amer 54 mL/min (>60); Estimated Creatinine Clearance 31.44 ml/min; Glucose 124 mg/dL (74-106); Potassium 4.1 mmol/L (3.5-5.1); Sodium Level 125 mmol/L (136-145); Thyroid Stim Hormone (TSH) 1.49 uIU/mL (0.358-3.74)
[2020-02-27 06:51] LABS: Bedside Glucose 145 mg/dL (70-110)
[2020-02-27] MEDS: Ipratropium/Albuterol Sulfate 3 ML AMPUL.NEB INHALATION ×3 (07:13→19:12)
--- NOTE | 2020-02-27 07:59 | EKG12_ITS ---
Test Reason : Blood Pressure : / mmHG Vent. Rate : 092 BPM Atrial Rate : 092 BPM P-R Int : 146 ms QRS Dur : 108 ms QT Int : 358 ms P-R-T Axes : 083 -01 -01 degrees QTc Int : 442 ms Normal sinus rhythm Anterior infarct , age undetermined Abnormal ECG Confirmed by YELENA VALENTIN, MAKI ([id number]), newspaper managing editor NANCI FAJARDO ([id number]) on 03/03/2020 11:13:31 A M Referred By: ZIGGY Confirmed By:DOMONIQUE KIRK MD
[2020-02-27] MEDS: Glucerna Shake 120 ML LIQUID PO ×3 (08:40→17:20)
[2020-02-27] MEDS: Iron Polysaccharide Complex 150 MG CAPSULE PO ×2 (08:40→17:11)
[2020-02-27] MEDS: Pioglitazone Hydrochloride 15 MG Tablet PO (09:59)
[2020-02-27] MEDS: Carvedilol 6.25 MG Tablet PO ×2 (09:59→21:02)
[2020-02-27] MEDS: Heparin Injection (Vial) 5,000 UNIT/ML VIAL 5000 UNIT SC ×2 (10:01→21:02)
[2020-02-27] MEDS: 0.9% Saline Lock 10 ML Syringe IV ×2 (10:14→17:11)
[2020-02-27] MEDS: Furosemide 40 MG/4 ML Vial IV ×2 (10:14→17:11)
--- NOTE | 2020-02-27 11:27 | PCM.PN.HOSP ---
<Jessee Dominguez - Last Filed: 02/27/20 11:44> Patient Problems: Active and Suspected Problems (Last Updated 02/24/20 @ 13:[address] Noemi Tyson MD) Fever (Acute) Hyponatremia (Acute) Anemia (Acute) Generalized weakness (Acute) Reason for Visit: CHF Subjective: Pt with ongoing O2 requirement and dyspnea with exertion. No CP. LE edema improved. No fever/chills. No cough. No dysuria. Pt urinating frequently with initiation of lasix therapy. No LH/dizziness. Pt wants to get up and walk more. Vitals/I&O's: Vital Signs Temp Pulse Resp BP Pulse Ox 98.3 F 103 H 18 139/65 H 96 02/27/20 09:50 02/27/20 09:50 02/27/20 09:50 02/27/20 09:50 02/27/20 09:50 Oxygen Flow Rate (L/min) 2 Oxygen Delivery Method Nasal Cannula Weight: 133 lb 6.075 oz Body Mass Index (BMI) 21.4 Intake and Output for Last 24 Hours 02/25/20 02/26/20 02/27/20 23:59 23:59 23:59 Intake Total 2107.75 / 2107.75 1528.42 / 1528.42 198.33 / 198.33 Output Total 1000 / 1000 2975 / 2975 275 / 275 Balance 1107.75 / 1107.75 -1446.58 / -1446.58 -76.67 / -76.67 General: Alert, Oriented x3, Cooperative, - - frail HEENT: Atraumatic, PERRLA, EOMI, Normocephalic Neck: Supple, No JVD, Negative Carotid Bruits Lungs: Diminished, Rales Cardiovascular: Irregular Rate, Murmur - 2/6 systolic murmur best at RSB 2nd ics Abdomen: Bowel Sounds Present, Soft, Non Tender Extremities: No edema, Capillary Refill Less than 3 Seconds Skin: No rashes, No breakdown Musculoskeletal: No Tenderness to Palpation of Joints or Extremities Neurological: Cranial nerves II-XII grossly intact Psych/Mental Status: Normal Affect, Appropriate, Alert and oriented to time, place, person, mood and affect Microbiology Past 72 Hours 02/24/20 12:50 Blood Culture (Wb) - No Site/Description Given Blood Culture - Preliminary No growth in 48 hours. 02/24/20 13:50 Blood Culture (Wb) - Arm Left Blood Culture - Preliminary No growth in 48 hours. 02/24/20 14:15 Urine Catheter - Catheter Urine Culture - Final Culture exhibits no growth. Laboratory Results 02/26/20 11:44: POC Glucose 140 H 02/26/20 12:25: Troponin I < 0.015 02/26/20 14:58: Troponin I < 0.015 02/26/20 17:50: POC Glucose 213 H 02/26/20 18:00: Troponin I < 0.015 02/26/20 21:13: Troponin I < 0.015 02/26/20 21:20: POC Glucose 187 H 02/27/20 05:25: WBC 5.6, RBC 3.43 L, Hgb 8.9 L, Hct 28.5 L, MCV 83.1, MCH 25.9 L, MCHC 31.2 L, RDW Std Deviation 50.9 H, RDW Coeff of Torey 17.1 H, Plt Count 270, MPV 10.0, Immature Gran % (Auto) 0.500, Neut % (Auto) 69.3, Lymph % (Auto) 15.8 L, Webb % (Auto) 11.0 H, Eos % (Auto) 2.3, Baso % (Auto) 1.1 H, Absolute Neuts (auto) 3.9, Absolute Lymphs (auto) 0.89, Nucleated RBC % 0 02/27/20 05:25: Sodium 125 L, Potassium 4.1, Chloride 92 L, Carbon Dioxide 26.0, Anion Gap 7, BUN 12, Creatinine 1.22 H, Estim Creat Clear Calc 31.44, Est GFR (MDRD) Af Amer 54 L, Est GFR (MDRD) Non-Af 45 L, BUN/Creatinine Ratio 9.8 L, Glucose 124 H, Calcium 7.6 L, TSH 1.49 02/27/20 05:25: Cortisol Pending 02/27/20 06:35: POC Glucose 145 H Current Medications Hydrocodone Bitart/Acetaminophen ([place] 5mg-325mg) 1 tablet PO Q4H PRN PRN PRN Reason: Pain score 1-10/10 Last Admin: 02/26/20 23:35 Dose: 1 tablet Documented by: Albuterol/Ipratropium (Duoneb) 3 ml INHALATION Q4HWA.RT [facility] Last Admin: 02/27/20 07:13 Dose: 3 ml Documented by: Carvedilol (Coreg) 6.25 mg PO BID [facility] Last Admin: 02/27/20 09:59 Dose: 6.25 mg Documented by: Furosemide (Lasix) 40 mg IV BID@1000,1800 [facility] Last Admin: 02/27/20 10:14 Dose: 40 mg Documented by: Gabapentin (Neurontin) 200 mg PO QHS [facility] Last Admin: 02/26/20 21:23 Dose: 200 mg Documented by: Heparin Sodium (Porcine) (Heparin Na) 5,000 unit SC Q12 [facility] Last Admin: 02/27/20 10:01 Dose: 5,000 unit Documented by: Sodium Chloride () 250 mls @ 15 mls/hr IV .[id number] PRN PRN Reason: Saline Flush Last Infusion: 02/26/20 10:03 Dose: Infused Documented by: Sodium Chloride () 250 mls @ 15 mls/hr IV .[id number] PRN PRN Reason: Additional IVPB Infusion Insulin Glargine (Lantus (Bkc)) 15 units SC DAILY [facility] Last Admin: 02/27/20 10:03 Dose: 15 u Documented by: Insulin Human Lispro (Humalog Kwikpen (Bkc)) 0 unit SC ACHS [facility]; Protocol Last Admin: 02/27/20 06:36 Dose: Not Given Documented by: Insulin Human Lispro (Humalog Kwikpen (Bkc)) 5 unit SC DINNER [facility] Last Admin: 02/26/20 17:50 Dose: Not Given Documented by: Irbesartan (Avapro) 150 mg PO DAILY [facility] Last Admin: 02/27/20 09:59 Dose: 150 mg Documented by: Nutritional Formula (Lactose Free) (Glucerna Shake) 120 ml PO TIDCM [facility] Last Admin: 02/27/20 08:40 Dose: 120 ml Documented by: Ondansetron HCl (Zofran) 4 mg IV Q8H PRN PRN PRN Reason: NAUSEA/VOMITING Last Admin: 02/26/20 18:06 Dose: 4 mg Documented by: Pantoprazole Sodium (Protonix) 40 mg PO DAILY [facility] Polyethylene Glycol (Miralax) 17 gm PO DAILY PRN PRN PRN Reason: Constipation Polysaccharide Iron Complex (Ferrex 150) 150 mg PO BIDCM [facility] Last Admin: 02/27/20 08:40 Dose: 150 mg Documented by: Repaglinide (Prandin) 1 mg PO BID@0800,1200 [facility] Last Admin: 02/27/20 08:40 Dose: 1 mg Documented by: Sodium Chloride () 10 - 40 ml IV UD PRN PRN Reason: SALINE FLUSH Last Admin: 02/27/20 10:14 Dose: 10 ml Documented by: Sorafenib (Nexavar) 200 mg PO BID [facility] Last Admin: 02/27/20 09:58 Dose: 200 mg Documented by: Temazepam (Restoril) 15 mg PO QHS PRN PRN PRN Reason: INSOMNIA STROKE Vital Signs/Narrative: Vital Signs Temp Pulse Resp BP Pulse Ox 02/27/20 09:50 98.3 F 103 H 18 139/65 H 96 Medical Necessity - Tobacco Use Smoking Status: Former smoker Assessment/Plan All Active Problems (Last Updated 02/24/20 @ 13:[address] Noemi Tyson MD) Fever (Acute) Hyponatremia (Acute) Anemia (Acute) Generalized weakness (Acute) 1. Acute systolic CHF with acute hypoxia - pt denies hx. Significant urine output. LE edema improved. Echo EF 20-25%. Cardiology consulted. DC actos. Pt on Sorafenib which may cause heart failure. Continue Coreg and Irbesartan. Infection less likely. Abx discontinued. No fever/leukocytosis, minimal cough. BNP 1600+. Last echo on file was with EF 55% 2. Hyponatremia - unclear etiology. Continue lasix. TSH normal. Cortisol pending. Repeat urine sodium/osmo. No major hyperglycemia. Not on SSRIs. 3. Iron def anemia - complicating #1. continue iron. Hgb low but stable. unclear baseline. Plts normal. 4. hx Hepatocellular carcinoma - pt of Dr. Thao. On sorafenib which can cause CHF. Also may cause hypokalemia, hypocalcemia, hypophosphatemia. K+ normal, corrected calcium normal. Check phos. 5. DMt2 - dc actos. Continue prandin with caution, continue SSI. DVT ppx: heparin This patient was seen by Jessee Dominguez PA-C under the supervision of Dr. Lester <Diaz Lester - Last Filed: 02/27/20 12:57> Vitals/I&O's: Vital Signs Temp Pulse Resp BP Pulse Ox 36.8 C 90 18 139/65 H 96 02/27/20 09:50 02/27/20 11:00 02/27/20 09:50 02/27/20 09:50 02/27/20 09:50 Oxygen Flow Rate (L/min) 2 Oxygen Delivery Method Nasal Cannula Weight: 60.5 kg Body Mass Index (BMI) 21.4 Intake and Output for Last 24 Hours 02/25/20 02/26/20 02/27/20 23:59 23:59 23:59 Intake Total 2107.75 / 2107.75 1528.42 / 1528.42 438.33 / 438.33 Output Total 1000 / 1000 2975 / 2975 1075 / 1075 Balance 1107.75 / 1107.75 -1446.58 / -1446.58 -636.67 / -636.67 General: Alert, Cooperative HEENT: Atraumatic, Normocephalic Cardiovascular: Irregular Rate, Murmur Abdomen: Bowel Sounds Present, Soft, Non Tender Psych/Mental Status: Normal Affect, Appropriate Microbiology Past 72 Hours 02/24/20 12:50 Blood Culture (Wb) - No Site/Description Given Blood Culture - Preliminary No growth in 48 hours. 02/24/20 13:50 Blood Culture (Wb) - Arm Left Blood Culture - Preliminary No growth in 48 hours. 02/24/20 14:15 Urine Catheter - Catheter Urine Culture - Final Culture exhibits no growth. Laboratory Results 02/26/20 12:25: Troponin I < 0.015 02/26/20 14:58: Troponin I < 0.015 02/26/20 17:50: POC Glucose 213 H 02/26/20 18:00: Troponin I < 0.015 02/26/20 21:13: Troponin I < 0.015 02/26/20 21:20: POC Glucose 187 H 02/27/20 05:25: WBC 5.6, RBC 3.43 L, Hgb 8.9 L, Hct 28.5 L, MCV 83.1, MCH 25.9 L, MCHC 31.2 L, RDW Std Deviation 50.9 H, RDW Coeff of Torey 17.1 H, Plt Count 270, MPV 10.0, Immature Gran % (Auto) 0.500, Neut % (Auto) 69.3, Lymph % (Auto) 15.8 L, Webb % (Auto) 11.0 H, Eos % (Auto) 2.3, Baso % (Auto) 1.1 H, Absolute Neuts (auto) 3.9, Absolute Lymphs (auto) 0.89, Nucleated RBC % 0 02/27/20 05:25: Sodium 125 L, Potassium 4.1, Chloride 92 L, Carbon Dioxide 26.0, Anion Gap 7, BUN 12, Creatinine 1.22 H, Estim Creat Clear Calc 31.44, Est GFR (MDRD) Af Amer 54 L, Est GFR (MDRD) Non-Af 45 L, BUN/Creatinine Ratio 9.8 L, Glucose 124 H, Calcium 7.6 L, TSH 1.49 02/27/20 05:25: Cortisol Pending 02/27/20 05:25: Phosphorus 2.7, Magnesium 1.2 L 02/27/20 06:35: POC Glucose 145 H 02/27/20 11:33: POC Glucose 238 H Current Medications Hydrocodone Bitart/Acetaminophen ([place] 5mg-325mg) 1 tablet PO Q4H PRN PRN PRN Reason: Pain score 1-10/10 Last Admin: 02/26/20 23:35 Dose: 1 tablet Documented by: Albuterol/Ipratropium (Duoneb) 3 ml INHALATION Q4HWA.RT [facility] Last Admin: 02/27/20 11:39 Dose: 3 ml Documented by: Carvedilol (Coreg) 6.25 mg PO BID [facility] Last Admin: 02/27/20 09:59 Dose: 6.25 mg Documented by: Furosemide (Lasix) 40 mg IV BID@1000,1800 [facility] Last Admin: 02/27/20 10:14 Dose: 40 mg Documented by: Gabapentin (Neurontin) 200 mg PO QHS [facility] Last Admin: 02/26/20 21:23 Dose: 200 mg Documented by: Heparin Sodium (Porcine) (Heparin Na) 5,000 unit SC Q12 [facility] Last Admin: 02/27/20 10:01 Dose: 5,000 unit Documented by: Sodium Chloride () 250 mls @ 15 mls/hr IV .[id number] PRN PRN Reason: Saline Flush Last Infusion: 02/26/20 10:03 Dose: Infused Documented by: Sodium Chloride () 250 mls @ 15 mls/hr IV .[id number] PRN PRN Reason: Additional IVPB Infusion Magnesium Sulfate 2 gm/ Sodium (Chloride) 104 mls @ 52 mls/hr IV X1 ONE Stop: 02/27/20 14:40 Insulin Glargine (Lantus (Bk)) 15 units SC DAILY [facility] Last Admin: 02/27/20 10:03 Dose: 15 u Documented by: Insulin Human Lispro (Humalog Kwikpen ([facility])) 0 unit SC ACHS [facility]; Protocol Last Admin: 02/27/20 11:35 Dose: 2 u Documented by: Insulin Human Lispro (Humalog Kwikpen ([facility])) 5 unit SC DINNER [facility] Last Admin: 02/26/20 17:50 Dose: Not Given Documented by: Irbesartan (Avapro) 150 mg PO DAILY [facility] Last Admin: 02/27/20 09:59 Dose: 150 mg Documented by: Nutritional Formula (Lactose Free) (Glucerflorence Shaaurelio) 120 ml PO TIDCM [facility] Last Admin: 02/27/20 11:37 Dose: 120 ml Documented by: Ondansetron HCl (Zofran) 4 mg IV Q8H PRN PRN PRN Reason: NAUSEA/VOMITING Last Admin: 02/26/20 18:06 Dose: 4 mg Documented by: Pantoprazole Sodium (Protonix) 40 mg PO DAILY [facility] Polyethylene Glycol (Miralax) 17 gm PO DAILY PRN PRN PRN Reason: Constipation [facility]accharide [facility] Last Admin: 02/27/20 08:40 Dose: 150 mg Documented by: Repaglinide (Prandin) 1 mg PO BID@0800,1200 [facility] Last Admin: 02/27/20 11:37 Dose: 1 mg Documented by: Sodium Chloride () 10 - 40 ml IV UD PRN PRN Reason: SALINE FLUSH Last Admin: 02/27/20 10:14 Dose: 10 ml Documented by: Sorafenib (Nexavar) 200 mg PO BID [facility] Last Admin: 02/27/20 09:58 Dose: 200 mg Documented by: Temazepam (Restoril) 15 mg PO QHS PRN PRN PRN Reason: INSOMNIA STROKE Vital Signs/Narrative: Vital Signs Temp Pulse Resp BP Pulse Ox 02/27/20 11:00 90 02/27/20 09:50 36.8 C 103 H 18 139/65 H 96 Assessment/Plan Patient seen and examined independently. Data reviewed. I agree with the above note by the physician back office medical assistant. 1. acute HfrEF EF 20-25% on furosemide stop abx 2. acute hypoxic respiratory insufficiency 2/2 above wean oxygen as tolerated 3. tachycardia probably 2/2 above start metoprolol 4. SIRS etiology unclear, though may be related to gastroenteritis COVID-19 negative continue to hold off abx 5. Lactic acidosis resolved likely due to gastroenteritis 6. Hyponatremia check urine studies check TSH slightly improved continue with IVF 7. Hyperkalemia resolved no hemolysis 8. HCC on sorafenib follow up with Dr. Thao 9. VTE prophylaxis: heparin Inpatient E&M: 40311 Subs Hosp L2
[2020-02-27] MEDS: Insulin Lispro 100 UNIT/ML INSULN.PEN SC ×4 (11:35→21:02)
[2020-02-27 12:21] LABS: Bedside Glucose 238 mg/dL (70-110)
--- NOTE | 2020-02-27 12:21 | PN.CARD_ITS ---
Objective: Vital Signs Temp Pulse Resp BP Pulse Ox 98.3 F 103 H 18 139/65 H 96 02/27/20 09:50 02/27/20 09:50 02/27/20 09:50 02/27/20 09:50 02/27/20 09:50 Oxygen Flow Rate (L/min) 2 Oxygen Delivery Method Nasal Cannula Weight: 133 lb 6.075 oz Body Mass Index (BMI) 21.4 Intake and Output for Last 24 Hours 02/25/20 02/26/20 02/27/20 23:59 23:59 23:59 Intake Total 2107.75 / 2107.75 1528.42 / 1528.42 198.33 / 198.33 Output Total 1000 / 1000 2975 / 2975 275 / 275 Balance 1107.75 / 1107.75 -1446.58 / -1446.58 -76.67 / -76.67 Chest Wall: - - Chest examination revealed, bilateral basilar rales. Cardiovascular: Regular Rhythm, Normal S1, Normal S2, No Murmurs, No Rubs, No Gallops 02/26/20 12:25: Troponin I < 0.015 02/26/20 14:58: Troponin I < 0.015 02/26/20 18:00: Troponin I < 0.015 02/26/20 21:13: Troponin I < 0.015 02/27/20 05:25: WBC 5.6, RBC 3.43 L, Hgb 8.9 L, Hct 28.5 L, MCV 83.1, MCH 25.9 L , MCHC 31.2 L, Plt Count 270, MPV 10.0, Immature Gran % (Auto) 0.500, Neut % (Auto) 69.3, Lymph % (Auto) 15.8 L, [place] % (Auto) 11.0 H, Eos % (Auto) 2.3, Baso % (Auto) 1.1 H, Absolute Neuts (auto) 3.9, Nucleated RBC % 0 02/27/20 05:25: Sodium 125 L, Potassium 4.1, Chloride 92 L, Carbon Dioxide 26.0, Anion Gap 7, BUN 12, Creatinine 1.22 H, Est GFR (MDRD) Af Amer 54 L, Est GFR (MDRD) Non-Af 45 L, BUN/Creatinine Ratio 9.8 L, Glucose 124 H, Calcium 7.6 L Rhythm: EKG: ECHO: Stress Test: Cardiac Cath: PCI: CT Surgery: Holter monitor: EPS: PPM: CXR: Chest CT Scan: Medical Necessity - Tobacco Use Smoking Status: Former smoker Assessment/Plan 83, no symptoms of chest pain reported also she had bilateral lower extremity swelling. Year-old female seen and evaluated at bedside along with the nursing staff ,son at bedside was able to give detailed history. patient presented with symptoms of shortness of breath bilateral lower extremity swelling She recently diagnosed as hepatocellular carcinoma and was on chemotherapy. Patient started on treatment with the carvedilol and Lasix and she been di uresing very well. Her chest x-ray showed clear evidence of congestive heart failure and I review her 2D echocardiogram which showed remarkable difference from prior echocardiogram with severe global LV hypokinesia ejection fraction of 20-25% Mild MR with mild TR, no pericardial effusion and echocardiogram. The underlying etiology of her severe LV dysfunction could be related to recent chemotherapy need to discuss this further with her oncologist. On cardiac examination she does not have any murmur and chest exam showed bilateral basal rales. On review of the electrocardiogram the initial quality assurance monitor chassis showed sinus tachycardia which is well better controlled now with beta- manuel carvedilol. On review of the EKG she had some change in the septal lead V1 V2 this could be secondary to lead placement but the main underlying finding on the EKG is sinus tachycardia. Also review her current lab her renal function is preserved. And she been tested to cooperate which is negative on this admission From cardiac standpoint recommendation would be to continue the current treatment with beta-manuel, angiotensin receptor manuel and Lasix as needed and she will be seen in follow-up by the jewelry internship for continuation of cardiac care.
[2020-02-27 12:22] LABS: Magnesium 1.2 mg/dL (1.6-2.6); Phosphorus 2.7 mg/dL (2.5-4.9)
[2020-02-27 13:23] LABS: Urine Sodium 87 mmol/L (Not Establ.)
[2020-02-27 17:30] LABS: Bedside Glucose 192 mg/dL (70-110)
[2020-02-27] MEDS: Gabapentin 100 MG Capsule 200 MG PO (21:02)
[2020-02-27 21:50] LABS: Bedside Glucose 184 mg/dL (70-110)
[2020-02-28] VITALS (7 sets, daily range): BP systolic 132–138; BP diastolic 71–78; PULSE 87–96; RESP 15–16; TEMP 36.6–37; O2SAT 94–96
[2020-02-28 06:13] LABS: Absolute Lymphocyte Count 0.52 X10^3/uL (0.83-4.51); Absolute Neutrophil Count 3.4 X10^3/uL (2.0-7.7); Basophil# 0.04 X10^3/uL; Basophil% 0.8 % (0-1); Eosinophil# 0.13 X10^3/uL; Eosinophils% 2.8 % (0-5); Hematocrit 28.2 % (37-47); Hemoglobin 9.1 g/dL (12.0-15.0); Lymphocyte # 0.52 X10^3/ul (4.0); Mean Corp Hgb Conc 32.3 g/dL (32-36); Mean Corpuscular Volume 80.6 fL (81-99); Mean Platelet Vol. 10.1 fl (6.2-12.0); Monocyte# 0.58 X10^3/uL; Monocyte% 12.3 % (0-10); NRBC Flagged by Analyzer 0 % (0-5); Neutrophil # 3.42 X10^3/uL (2.7-7.7); Neutrophil % 72.5 % (47-70); POSITIVE DIFFERENTIAL YES; Platelet Count 257 K/mm3 (150-450); RBC Distribution Width CV 16.9 % (11.6-14.6); RBC Distribution Width SD 48.1 fl (35.1-43.9); White Blood Count 4.7 K/mm3 (4.4-11.0)
[2020-02-28 06:17] LABS: Differential Indicated SCAN CRITERIA MET
[2020-02-28] MEDS: Insulin Lispro 100 UNIT/ML INSULN.PEN SC ×2 (06:41→11:53)
[2020-02-28 06:43] LABS: Differential Comment SCANNED
[2020-02-28 06:44] LABS: Anion Gap 9 (5-15); BUN 14 mg/dL (7-18); BUN/Creat Ratio 12.2 RATIO (10-20); Calcium,Total 7.7 mg/dL (8.5-10.1); Chloride 91 mmol/L (98-107); Creatinine, Serum 1.15 mg/dL (0.55-1.02); EST Glomerular Filtration Rate 48 mL/min (>60); Est Glom Filt Rate - Afr Amer 58 mL/min (>60); Estimated Creatinine Clearance 33.35 ml/min; Glucose 138 mg/dL (74-106); Potassium 3.6 mmol/L (3.5-5.1); Sodium Level 127 mmol/L (136-145)
[2020-02-28 07:06] LABS: Bedside Glucose 161 mg/dL (70-110)
[2020-02-28] MEDS: Ipratropium/Albuterol Sulfate 3 ML AMPUL.NEB INHALATION ×2 (07:21→10:29)
--- NOTE | 2020-02-28 08:14 | PN.CARD_ITS ---
Subjectve: Patient seen and evaluated. Objective: Vital Signs Temp Pulse Resp BP Pulse Ox 98.6 F 94 16 138/78 H 95 02/28/20 03:00 02/28/20 07:21 02/28/20 07:21 02/28/20 03:00 02/28/20 07:21 Oxygen Flow Rate (L/min) 2 Oxygen Delivery Method Nasal Cannula Weight: 128 lb 8.472 oz Body Mass Index (BMI) 21.4 Intake and Output for Last 24 Hours 02/26/20 02/27/20 02/28/20 23:59 23:59 23:59 Intake Total 1528.42 / 1528.42 782.33 / 782.33 120 / 120 Output Total 2975 / 2975 1575 / 2125 1000 / 1000 Balance -1446.58 / -1446.58 -792.67 / -1342.67 -880 / -880 General: Awake, Alert, Oriented x 3 HEENT: PERRL, EOMI, Sclera Non Icteric Neck: Supple, Good ROM, No Lymph Node Enlargement Lungs: Clear to auscultation Cardiovascular: Regular Rhythm, Normal S1, Normal S2, No Murmurs, No Rubs, No Gallops Vascular: No Carotid Bruits, Normal Femoral Pulses, Normal Radial Pulses, Normal Dorsalis Pedal Pulse, Normal Posterior Tibial Pulses Abdomen: Bowel Sounds Present, Soft, Non Tender, No HSM, No Organomegaly Extremities: No Cyanosis, No Clubbing, No edema Musculoskeletal: No Erythema Skin: No Rashes Lymphatic: No Lymph Node Enlargement Neurological: No Focal Motor or Sensory Deficit Psych/Mental Status: Appropriate 02/27/20 05:25: Phosphorus 2.7, Magnesium 1.2 L 02/28/20 06:04: WBC 4.7, RBC 3.50 L, Hgb 9.1 L, Hct 28.2 L, MCV 80.6 L, MCH 26.0 L, MCHC 32.3, Plt Count 257, MPV 10.1, Immature Gran % (Auto) 0.600, Neut % (Auto) 72.5 H, Lymph % (Auto) 11.0 L, [place] % (Auto) 12.3 H, Eos % (Auto) 2.8, Baso % (Auto) 0.8, Absolute Neuts (auto) 3.4, Nucleated RBC % 0 02/28/20 06:04: Sodium 127 L, Potassium 3.6, Chloride 91 L, Carbon Dioxide 27.0, Anion Gap 9, BUN 14, Creatinine 1.15 H, Est GFR (MDRD) Af Amer 58 L, Est GFR (MDRD) Non-Af 48 L, BUN/Creatinine Ratio 12.2, Glucose 138 H, Calcium 7.7 L Rhythm: EKG: ECHO: Stress Test: Cardiac Cath: PCI: CT Surgery: Holter monitor: EPS: PPM: CXR: Chest CT Scan: Medical Necessity - Tobacco Use Smoking Status: Former smoker Assessment/Plan 1. Shortness of breath * Patient appears to have systolic heart failure. My recommendation is to continue with the current medical therapy with a beta-manuel and ADRIAN inhibitor and diuretic. The estimated ejection fraction is 25%. * Post discharge the patient will be followed up in the office. * * Thank you for allowing me to participate in the care of your patient. Please don't hesitate to call if any issues arise.
[2020-02-28] MEDS: Iron Polysaccharide Complex 150 MG CAPSULE PO (09:00)
[2020-02-28] MEDS: Furosemide 40 MG Tablet PO (09:00)
[2020-02-28] MEDS: Pantoprazole Sodium 40 MG Tablet PO (09:01)
[2020-02-28] MEDS: Carvedilol 6.25 MG Tablet PO (09:02)
[2020-02-28] MEDS: Glucerna Shake 120 ML LIQUID PO (09:09)
[2020-02-28] MEDS: Heparin Injection (Vial) 5,000 UNIT/ML VIAL 5000 UNIT SC (09:12)
--- NOTE | 2020-02-28 10:34 | CASEMGMT ---
Addendum entered by Sharron Gee 02/28/20 15:27: Call to pt's son, Hayden, to update on plan of care, voices understanding and thanks this RN CM at this time. This RN CM did advise pt to f/u with PCP office to make sure the order gets faxed to [facility] lab, voices understanding. Son states no further questions/concerns/needs at this time. Scooter RN CM Addendum entered by Sharron Gee 02/28/20 13:11: Pt does not qualify for home oxygen at this time. This RN CM has still not heard from [facility] so call placed to [facility] at this time. Per [facility], they do not have the nursing staff to take pt at this time. This RN CM to room to discuss with pt/son at this time and son states they would like to try [facility] at this time. Call to Joya at [facility] and she states that they can take pt for PT/OT at this time but they will not have nurse availability until next week. SN was mostly just being set up for f/u bloodwork, BMP, in one week, so call to [facility] Outreach lab and she states they can do draw for pt as long as they have an order with dx and order is marked that pt is home bound. Per discharge instructions, pt is to call Dr. Salmon's office to get order for BMP in one week. This RN CM spoke with Dr. Salmon's nurse, Angela, at this time in regards to BMP order, dx, and pt being homebound. Angela, Dr. Salmon's nurse, states she will get the message to Dr. Salmon at this time. Angela is aware that pt being discharged today with [facility], voices understanding. This RN CM attempted to go to speak with pt/son regarding same but nurse had already discharged pt at this time. This RN CM will attempt to call son once he is home to update on all. Order for now for PT/OT as outreach lab to draw bloodwork for pt. Call to Joya at [facility] to notify of all at this time, voices understanding. Scooter RN CM Addendum entered by Sharron Gee 02/28/20 10:54: Call to Ambreen at [facility] to notify of referral at this time and message left at this time for her to call this RN CM back with acceptance/denial of pt. Scooter ABDI CM Original Note: This RN CM to room to discuss discharge plan with pt at this time. Pt does agree to [facility]HC at this time, but seems slightly confused at this time when discussing HHC company/DME company. Pt requests that this RN CM call her son at this time for decisions on companies. Call to pt's son, Hayden, and after a verbal review of in-network HHC/DME companies, son picks [facility] and [facility] at this time. Son states he is fine with bringing pt home at discharge and is agreeable to HHC at this time. Order placed for SN, PT/OT at this time and referral faxed to [facility] at this time. Awaiting amb pulse ox at this time. Scooter ABDI CM
--- NOTE | 2020-02-28 11:27 | PCM.DC ---
- Discharge Diagnoses Current Active Problems: Current Active and Chronic Problems (Last Updated 02/24/20 @ 13:[address] Noemi Tyson MD) Hepatocellular carcinoma (Chronic) Fever (Acute) Hyponatremia (Acute) Anemia (Acute) Generalized weakness (Acute) You will use the following diet at home:: Calorie/Carbohydrate Controlled (specify 1200, 1400, etc) - 1800 chelsey / day, Cardiac Your food should be the consistency of: Regular Your liquids should be the consistency of: Regular/Thin Discharge Activity: Return to Normal Activity Allergies/Adverse Reactions: Allergies aspirin Allergy (Verified 02/24/20 12:38) Unknown atorvastatin calcium [From Lipitor] Allergy (Verified 02/24/20 12:38) Unknown baclofen Allergy (Verified 02/24/20 12:38) Unknown celecoxib [From Celebrex] Allergy (Verified 02/24/20 12:38) Unknown flavoxate Allergy (Verified 02/24/20 12:38) Unknown glimepiride Allergy (Verified 02/24/20 12:38) Unknown hydrochlorothiazide Allergy (Verified 02/24/20 12:38) Unknown ibuprofen Allergy (Verified 02/24/20 12:38) Unknown losartan potassium [From Cozaar] Allergy (Verified 02/24/20 12:38) Unknown mirtazapine Allergy (Verified 02/24/20 12:38) Unknown nabumetone Allergy (Verified 02/24/20 12:38) Unknown orphenadrine Allergy (Verified 02/24/20 12:38) Unknown oxybutynin Allergy (Verified 02/24/20 12:38) Unknown oxycodone HCl [From Percocet] Allergy (Verified 02/24/20 12:38) Unknown paroxetine HCl [From Paxil] Allergy (Verified 02/24/20 12:38) Unknown pravastatin Allergy (Verified 02/24/20 12:38) Unknown pseudoephedrine HCl [From Sudafed] Allergy (Verified 02/24/20 12:38) Unknown simvastatin [From Zocor] Allergy (Verified 02/24/20 12:38) Unknown Sulfa (Sulfonamide Antibiotics) Allergy (Verified 02/24/20 12:38) Unknown tolterodine tartrate [From Detrol] Allergy (Verified 02/24/20 12:38) Unknown Medications to take at Discharge Ipratropium [place] 0.06% [ATROVENT NASAL SPRAY] 2 spray NASAL BID 02/11/17 Pantoprazole Sodium [Protonix] 40 mg PO DAILY 02/11/17 Repaglinide [Prandin] 1 mg PO BID 02/11/17 Temazepam [Restoril] 15 mg PO QHS PRN PRN 02/11/17 ondansetron HCl 4 mg tablet 4 mg PO Q8H PRN tab 06/26/17 Gabapentin [Neurontin] 200 mg PO QHS 02/24/20 Hydrocodone Bitart/Apap 5-325 [Stanley 5/325] 1 tab PO Q4H PRN PRN 02/24/20 Insulin Aspart [Novolog Flexpen] 5 units SUBCUT DINNER 02/24/20 Insulin Detemir [Levemir Flextouch] 15 unit SQ DAILY 02/24/20 Irbesartan [Avapro] 150 mg PO DAILY 02/24/20 Iron Polysaccharide Complex [Ferrex 150] 150 mg PO BID 02/24/20 Methadone HCl 2.5 mg PO BID 02/24/20 Polyethylene Glycol 3350 17 gm PO DAILY PRN PRN 02/24/20 Carvedilol [Coreg (Beta Marky)] 6.25 mg PO BID #60 tab 02/28/20 Furosemide [Lasix] 40 mg PO BID@1000,1800 #60 tab 02/28/20 The following prescriptions were given: Carvedilol [Coreg (Beta Marky)] 6.25 mg PO BID #60 tab Transmission Status: Pending to [facility] Furosemide [Lasix] 40 mg PO BID@1000,1800 #60 tab Transmission Status: Pending to [facility] Primary Care Physician: Juliocesar Salmon MD [Primary Care Provider] - Please follow up with your Primary Care Physician in: 1-2 weeks Test Results: Test results from this visit will be discussed in further detail at your follow-up appointment, if applicable. Please Follow Up With: Chase Thao MD When: Keep current appointment Please Follow Up With: Marito Raymundo MD When: as directed Proposed Discharge Date: 02/28/20
--- NOTE | 2020-02-28 12:00 | SP.MBSS_ITS ---
PRIMARY / SECONDARY DIAGNOSIS: dysphagia (R13.10) CURRENT DIET (SOLIDS): mechanical soft textures (IDDSI: 5) CURRENT DIET (LIQUIDS): nectar thickened liquids (IDDSI: 2) DENTITION: natural upper / lower dentition MENTAL STATUS: sufficient for participation RESPIRATORY STATUS: O2 via room air REASON FOR REFERRAL: The Patient is an 84 year old female referred for a modified barium swallow (MBS) study to objectively assess the Patients oropharyngeal swallow function under fluoroscopy secondary to concerns for PO intake tolerance. MEDICAL HISTORY: Chase esophagus, hiatal hernia, hyperlipidemia, hypertension, peripheral artery disease, hepatocellular carcinoma, gastroesophageal reflux disease, history of ischemic colitis, status post cardiac catheterization, type II diabetes mellitus. PREVIOUS MODIFIED BARIUM SWALLOW STUDY RESULTS: None ADDITIONAL OBJECTIVE ASSESSMENT RESULTS: 01/21/2019 upper GI series revealed a normal air-contrast upper GI series. ASSESSMENT PARAMETERS: The Patient participated in a Modified Barium Swallow (MBS) study on 02/28/2020. This study was recorded in the lateral view and images were sent to PACs for storage. Scoring was completed through each trial using the 8- point Penetration-Aspiration Scale (PAS) and summarized via the Modified Barium Swallow Impairment Profile (MBSImP) and the Bolus Residue Scale (BRS), with severity scoring through the Dysphagia Severity Rating Scale (DSRS) and the Dysphagia Classification Scale (DCS), and recommended diet textures through the International Dysphagia Diet Standardisation Initiative (IDDSI) RESULTS OF THE EVALUATION: The Patient presents with mild oropharyngeal dysphagia (DSRS: 2) with transient shallow penetration with thin liquids, likely secondary to primary presbyphagia OBJECTIVE ASSESSMENT OF SWALLOW FUNCTION (QUANTITATIVE ? PER TRIAL): PENETRATION / ASPIRATION SCALE (PINK): 1 = does not enter airway 2 = enters airway/above vocal folds/ejected 3 = enters airway/above vocal folds/not ejected 4 = enters airway/contacts vocal folds/ejected 5 = enters airway/contacts vocal folds/not ejected 6 = enters airway/below vocal folds/ejected 7 = enters airway/below vocal folds/not ejected despite effort 8 = enters airway/below vocal folds/no effort PENETRATION / ASPIRATION SCALE (SCORE): Thin liquid - 5 mL tsp.: 2 Thin liquids via cup (single sip): 2 Thin liquids via cup (single sip): 1 Thin liquids via cup (single sip): 1 Pudding via spoon: 1 Regular textured cookie: 1 Thin liquids via cup (single sip): 1 Thin liquids via straw (single sip): 2 OBJECTIVE ASSESSMENT OF SWALLOW FUNCTION (QUANTITATIVE ? AGGREGATE): MODIFIED BARIUM SWALLOW IMPAIRMENT PROFILE (MBSImP) LABIAL SEAL: 0 (of 4) no labial escape TONGUE CONTROL: 2 (of 3) posterior escape < 50% BOLUS PREPARATION / MASTICATION: 1 (of 3) slow prolonged; complete recollection BOLUS TRANSPORT / LINGUAL MOTION: 3 (of 4) repetitive / disorganized motion ORAL RESIDUE: 1 (of 4) trace residue lining oral structures INITIATION OF PHARYNGEAL SWALLOW: 3 (of 4) pyriforms SOFT PALATE ELEVATION: 0 (of 4) no bolus between soft palate & pharyngeal wall LARYNGEAL ELEVATION: 1 (of 3) partial superior movement / approximation ANTERIOR HYOID EXCURSION: 1 (of 2) partial movement EPIGLOTTIC MOVEMENT: 1 (of 2) partial inversion LARYNGEAL VESTIBULE CLOSURE: 0 (of 2) complete closure PHARYNGEAL STRIPPING WAVE: 1 (of 2) present / diminished PE SEGMENT OPENIN (of 3) partial distension / duration / obstruction TONGUE BASE RETRACTION: 2 (of 4) narrow column of contrast PHARYNGEAL RESIDUE: 2 (of 4) collection of residue ESOPHAGEAL BOLUS CLEARANCE: 1 (of 4) esophageal retention BOLUS RESIDUE SCALE (BRS): BRS SCORE: 4 (of 6) BRS SCORE DESCRIPTION: residue in valleculae and piriform sinus OBJECTIVE ASSESSMENT OF SWALLOW FUNCTION (SEVERITY GRADING): DYSPHAGIA SEVERITY RATING SCALE (DSRS): DSRS CLASSIFICATION: 2 (mild) DSRS CLASSIFICATION CHARACTERISTICS: oropharyngeal dysphagia present, which can be managed by specific swallow suggestions; slight modification in consistency of diet may be indicated. OBJECTIVE ASSESSMENT OF SWALLOW FUNCTION (QUALITATIVE): ORAL PREPARATORY PHASE: mild (albeit functional) mastication inefficiency with prolonged mastication; sufficient anterior oral containment during oral manipulation; preserved management of breathing / bolus formation without disrupted E ? S ? E pattern ORAL TRANSITIONAL PHASE: intermittent discoordinated lingual movements (undulations); no bolus consolidation impairments; sufficient oral containment across textures with no presence of premature posterior bolus loss PHARYNGEAL PHASE: suboptimal pharyngeal phase dyssynchrony; mild reduction in hyolaryngeal excursion and duration with sufficient / consistent laryngeal vestibule pressure generated to expel penetrated material; mild pharyngeal dysmotility; appropriate velopharyngeal functioning; ESOPHAGEAL PHASE: mild esophageal retention within the lower 3rd of the esophagus. CONTRIBUTING / COMPLICATING FACTORS AND NOTABLE FINDINGS: cervical osteophytes located at the C-5 C-6, and C-7 levels, with minimal impact on pharyngeal motility; noted calcification along the inferior / posterior pharyngeal wall, the hyoid bone, and the along the anterior and posterior trachea that did not significantly impact image quality; INTERVENTION RECOMMENDATIONS AND CONSIDERATIONS: The Patient may benefit from 1-2 follow up skilled speech-language intervention sessions during the acute care admission targeting diet texture management and training / implementation of recommended compensatory strategies; POST ASSESSMENT EDUCATION: The results and recommendations were discussed with the Patient immediately following MBS completion, with the Patient verbalizing understanding and agreement with all recommendations and education provided. DIET TEXTURE RECOMMENDATIONS: Will recommend a regular ? soft textured (IDDSI: 6), thin liquid diet (IDDSI: 0) diet RECOMMENDED COMPENSATORY STRATEGIES: Distant supervision, reduced bolus volume / rate of ingestion, seated upright at 90 degrees during PO intake, remain upright for 30-60 minutes post meal (GERD precaution) IMAGE COUNT: [id number] Eduar Rai M.A., MICHAEL-SOCIAL SERVICES ASSISTANT, CBIS MBSImP Certified, LSVT Certified [facility] Speech-Language Pathology Department Email: [email or web address]
[2020-02-28 12:15] LABS: Bedside Glucose 158 mg/dL (70-110)
--- NOTE | 2020-02-28 12:15 | PCM.DC.SUM ---
<Jessee Dominguez - Last Filed: 02/28/20 12:15> Discharge Date and Diagnosis - Problem List Patient Problems: Active and Suspected Problems (Last Updated 02/24/20 @ 13:[address] Noemi Tyson MD) Fever (Acute) Hyponatremia (Acute) Anemia (Acute) Generalized weakness (Acute) Date of Admission: 02/24/20 Date of Discharge: 02/28/20 - Primary Discharge Diagnosis Acute Problems: Active Problems (Last Updated 02/24/20 @ 13:[address] Noemi Tyson MD) Acute systolic CHF with acute hypoxia, possibly 2/2 chemotherapy Hyponatremia suspected hypervolemic 2/2 chc Hepatocellular carcinoma - Secondary Discharge Diagnosis Chronic Problems: Chronic Problems (Last Updated 02/24/20 @ 13:[address] Noemi Tsyon MD) Type 2 diabetes mellitus (Chronic) Has continued to have no low BG. No longer snacking at bedtime. Reports improved appetite. Will change her prandin to pre supper instead of lunch with lantus 7 units to see if we can lower pm readings. Hyperlipidemia (Chronic) Hypertension (Chronic) PAD (peripheral artery disease) (Chronic) Hepatocellular carcinoma (Chronic) Hypertension, essential (Chronic) BP has improved since change in diovan. Recheck 144/70. PCP is adjusting her anti-hypertensives. 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 RAD/Chest 1 View (Portable) IMPRESSION: Evolving bilateral perihilar alveolar disease. Progressing bilateral pleural effusions. Echo: Interpretation Summary No LV thrombus The estimated ejection fraction is 20-25 %. There is severe global hypokinesis of the left ventricle. Mild (1+) mitral valve insufficiency. Mild tricuspid valve insufficiency. No pericardial effusion. Moderate size right pleural effusion. Consults: Cardiology - [facility]/[place] Operations: None Procedures: 2-D Echocardiogram Summary of Care Provided: Hospital course: The patient is a 84 year old F with past medical history notable for hepatocellular carcinoma, patient of currently on chemotherapy with Nexavar, who presented to the emergency room with complaints of abnormal labs, weakness, nausea and vomiting. The patient was found to be hyponatremic with sodium of 123, lactic acid which was elevated to 2.6 chest x-ray showing small bilateral pleural effusions. Initially she was admitted for Sirs, hyponatremia, hyperkalemia, dehydration, and physical debility. No source of infection could be identified so antibiotics were deferred. The patient developed hypoxia, rales on exam, tachycardia, and wheezing, significant lower extremity edema. Chest x-ray was consistent with with developing CHF. Beta natruretic peptide was elevated at 1683. Echocardiogram was obtained and demonstrated an ejection fraction of 20 to 25%. Prior echo in 2011 showed a preserved ejection fraction. Cardiology was consulted. Patient was placed on Lasix therapy and had good response. Cardiology recommended follow-up with oncology as her chemotherapy agent has a side effect of congestive heart failure. I contacted her oncologist who recommended holding her Nexavar until she follows up with him in March. She had gradual improvement in her hyponatremia however does continue to have some degree of hyponatremia. Cortisol level was elevated, TSH was normal procalcitonin was was elevated at 1.97 she was felt to have hypervolemic hyponatremia. This is slowly improving with Lasix therapy. She will need to have a BMP checked in 1 week. She will need to follow-up with cardiology as directed, oncology-keep current appointment, and follow-up with her PCP in 1 to 2 weeks. Actos was also discontinued with her CHF. She should remain off of Methadone at discharge as well. She was successfully weaned off O2 at rest and with exertion prior to DC. She was discharged home in stable condition with home health care. This patient was seen by Jessee Dominguez PA-C under the supervision of Doctor Casillas. [] Patient Problems: Active and Suspected Problems (Last Updated 02/24/20 @ 13:[address] Noemi Tyson MD) Fever (Acute) Hyponatremia (Acute) Anemia (Acute) Generalized weakness (Acute) - Physical Exam Vitals/I&O's: Vital Signs Temp Pulse Resp BP Pulse Ox 97.8 F 91 16 132/71 H 94 02/28/20 08:56 02/28/20 10:29 02/28/20 10:29 02/28/20 08:56 02/28/20 11:45 Oxygen Flow Rate (L/min) 2 Oxygen Delivery Method Nasal Cannula Weight: 128 lb 8.472 oz Body Mass Index (BMI) 21.4 Intake and Output for Last 24 Hours 02/26/20 02/27/20 02/28/20 23:59 23:59 23:59 Intake Total 1528.42 / 1528.42 782.33 / 782.33 620 / 620 Output Total 2975 / 2975 1575 / 2125 1400 / 1400 Balance -1446.58 / -1446.58 -792.67 / -1342.67 -780 / -780 General: Alert, Oriented x3, Cooperative HEENT: Atraumatic, PERRLA, EOMI, Normocephalic Neck: Supple, No JVD, Negative Carotid Bruits Lungs: Clear to auscultation, Normal air movement Cardiovascular: Regular rate, No murmurs Abdomen: Bowel Sounds Present, Soft, Non Tender Extremities: No edema, Capillary Refill Less than 3 Seconds Skin: No rashes, No breakdown Musculoskeletal: No Tenderness to Palpation of Joints or Extremities Neurological: Cranial nerves II-XII grossly intact Psych/Mental Status: Normal Affect, Appropriate, Alert and oriented to time, place, person, mood and affect Microbiology Past 72 Hours 02/24/20 12:50 Blood Culture (Wb) - No Site/Description Given Blood Culture - Preliminary No growth in 48 hours. 02/24/20 13:50 Blood Culture (Wb) - Arm Left Blood Culture - Preliminary No growth in 48 hours. 02/24/20 14:15 Urine Catheter - Catheter Urine Culture - Final Culture exhibits no growth. Laboratory Results 02/27/20 05:25: Cortisol 25.90 H 02/27/20 05:25: Phosphorus 2.7, Magnesium 1.2 L 02/27/20 11:33: POC Glucose 238 H 02/27/20 13:00: Urine Osmolality Cancelled, Ur Random Sodium 87 02/27/20 13:00: Miscellaneous Test Pending 02/27/20 17:02: POC Glucose 192 H 02/27/20 20:58: POC Glucose 184 H 02/28/20 06:04: WBC 4.7, RBC 3.50 L, Hgb 9.1 L, Hct 28.2 L, MCV 80.6 L, MCH 26.0 L, MCHC 32.3, RDW Std Deviation 48.1 H, RDW Coeff of [place] 16.9 H, Plt Count 257, MPV 10.1, Immature Gran % (Auto) 0.600, Neut % (Auto) 72.5 H, Lymph % (Auto) 11.0 L, [place] % (Auto) 12.3 H, Eos % (Auto) 2.8, Baso % (Auto) 0.8, Absolute Neuts (auto) 3.4, Absolute Lymphs (auto) 0.52 L, Nucleated RBC % 0, Differential Comment SCANNED 02/28/20 06:04: Sodium 127 L, Potassium 3.6, Chloride 91 L, Carbon Dioxide 27.0, Anion Gap 9, BUN 14, Creatinine 1.15 H, Estim Creat Clear Calc 33.35, Est GFR (MDRD) Af Amer 58 L, Est GFR (MDRD) Non-Af 48 L, BUN/Creatinine Ratio 12.2, Glucose 138 H, Calcium 7.7 L 02/28/20 06:40: POC Glucose 161 H 02/28/20 11:51: POC Glucose Pending Current Medications Hydrocodone Bitart/Acetaminophen ([place] 5mg-325mg) 1 tablet PO Q4H PRN PRN PRN Reason: Pain score 1-10/10 Last Admin: 02/26/20 23:35 Dose: 1 tablet Documented by: Albuterol/Ipratropium (Duoneb) 3 ml INHALATION Q4HWA.RT [facility] Last Admin: 02/28/20 10:29 Dose: 3 ml Documented by: Carvedilol (Coreg) 6.25 mg PO BID [facility] Last Admin: 02/28/20 09:02 Dose: 6.25 mg Documented by: Furosemide (Lasix) 40 mg PO BID@1000,1800 [facility] Last Admin: 02/28/20 09:00 Dose: 40 mg Documented by: Gabapentin (Neurontin) 200 mg PO QHS [facility] Last Admin: 02/27/20 21:02 Dose: 200 mg Documented by: Heparin Sodium (Porcine) (Heparin Na) 5,000 unit SC Q12 [facility] Last Admin: 02/28/20 09:12 Dose: 5,000 unit Documented by: Sodium Chloride () 250 mls @ 15 mls/hr IV .[id number] PRN PRN Reason: Saline Flush Last Infusion: 02/26/20 10:03 Dose: Infused Documented by: Sodium Chloride () 250 mls @ 15 mls/hr IV .[id number] PRN PRN Reason: Additional IVPB Infusion Insulin Glargine (Lantus (Bk)) 15 units SC DAILY [facility] Last Admin: 02/28/20 09:11 Dose: 15 u Documented by: Insulin Human Lispro (Humalog Kwikpen ([facility])) 0 unit SC ACHS [facility]; Protocol Last Admin: 02/28/20 11:53 Dose: 1 u Documented by: Insulin Human Lispro (Humalog Kwikpen ([facility])) 5 unit SC DINNER [facility] Last Admin: 02/27/20 17:12 Dose: 5 u Documented by: Irbesartan (Avapro) 150 mg PO DAILY [facility] Last Admin: 02/28/20 09:10 Dose: 150 mg Documented by: Nutritional Formula (Lactose Free) (Glucerna Shake) 120 ml PO TIDCM [facility] Last Admin: 02/28/20 09:09 Dose: 120 ml Documented by: Ondansetron HCl (Zofran) 4 mg IV Q8H PRN PRN PRN Reason: NAUSEA/VOMITING Last Admin: 02/26/20 18:06 Dose: 4 mg Documented by: Pantoprazole Sodium (Protonix) 40 mg PO DAILY [facility] Last Admin: 02/28/20 09:01 Dose: 40 mg Documented by: Polyethylene Glycol (Miralax) 17 gm PO DAILY PRN PRN PRN Reason: Constipation Polysaccharide Iron Complex (Ferrex 150) 150 mg PO BIDCM [facility] Last Admin: 02/28/20 09:00 Dose: 150 mg Documented by: Repaglinide (Prandin) 1 mg PO BID@0800,1200 [facility] Last Admin: 02/28/20 09:01 Dose: 1 mg Documented by: Sodium Chloride () 10 - 40 ml IV UD PRN PRN Reason: SALINE FLUSH Last Admin: 02/27/20 17:11 Dose: 20 ml Documented by: Sorafenib (Nexavar) 200 mg PO BID [facility] Last Admin: 02/28/20 09:09 Dose: 200 mg Documented by: Temazepam (Restoril) 15 mg PO QHS PRN PRN PRN Reason: INSOMNIA Discharge Diet: Low fat/ Low Cholesterol, 2000 mg Sodium Diet Discharge Activity: Return to Normal Activity Home Medications: Medications to take at Discharge Ipratropium [place] 0.06% [ATROVENT NASAL SPRAY] 2 spray NASAL BID 02/11/17 Pantoprazole Sodium [Protonix] 40 mg PO DAILY 02/11/17 Repaglinide [Prandin] 1 mg PO BID 02/11/17 Temazepam [Restoril] 15 mg PO QHS PRN PRN 02/11/17 ondansetron HCl 4 mg tablet 4 mg PO Q8H PRN tab 06/26/17 Gabapentin [Neurontin] 200 mg PO QHS 02/24/20 Hydrocodone Bitart/Apap 5-325 [[place] 5/325] 1 tab PO Q4H PRN PRN 02/24/20 Insulin Aspart [Novolog Flexpen] 5 units SUBCUT DINNER 02/24/20 Insulin Detemir [Levemir Flextouch] 15 unit SQ DAILY 02/24/20 Irbesartan [Avapro] 150 mg PO DAILY 02/24/20 Iron Polysaccharide Complex [Ferrex 150] 150 mg PO BID 02/24/20 Polyethylene Glycol 3350 17 gm PO DAILY PRN PRN 02/24/20 Carvedilol [Coreg (Beta Marky)] 6.25 mg PO BID #60 tab 02/28/20 Furosemide [Lasix] 40 mg PO BID@1000,1800 #60 tab 02/28/20 Following Prescriptions Were Given to Patient: Carvedilol [Coreg (Beta Marky)] 6.25 mg PO BID #60 tab Transmission Status: Received by [facility] Furosemide [Lasix] 40 mg PO BID@1000,1800 #60 tab Transmission Status: Received by [facility] Primary Care Physician: Juliocesar Salmon MD [Primary Care Provider] - Please follow up with your Primary Care Physician in: 1-2 weeks Please Follow Up With: Chase Thao MD When: Keep current appointment Please Follow Up With: Marito Raymundo MD When: as directed Please Follow Up With: Juliocesar Salmon MD When: 1-2 weeks Additional Instructions: BMP in 1 week. Disposition: Home with Home Health Minutes spent on discharge:: 35 Patient Condition:: Stable Medical Necessity - Tobacco Use Smoking Status: Former smoker Meaningful Use Info Meaningful Use Diagnoses (Choose all that apply): CHF - CHF ADRIAN/ARB ordered at discharge?: Yes Documented LVEF (%): 20 <Ramses Casillas - Last Filed: 02/28/20 13:41> Discharge Date and Diagnosis - Primary Discharge Diagnosis Acute Problems: Active Problems (Last Updated 02/24/20 @ 13:[address] Noemi Tyson MD) Fever (Acute) Hyponatremia (Acute) Anemia (Acute) Generalized weakness (Acute) - Secondary Discharge Diagnosis Chronic Problems: Chronic Problems (Last Updated 02/24/20 @ 13:[address] Noemi Tyson MD) Type 2 diabetes mellitus (Chronic) Has continued to have no low BG. No longer snacking at bedtime. Reports improved appetite. Will change her prandin to pre supper instead of lunch with lantus 7 units to see if we can lower pm readings. Hyperlipidemia (Chronic) Hypertension (Chronic) PAD (peripheral artery disease) (Chronic) Hepatocellular carcinoma (Chronic) Hypertension, essential (Chronic) BP has improved since change in diovan. Recheck 144/70. PCP is adjusting her anti-hypertensives. 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 I have independently interviewed and examined the patient and reviewed pertinent historical, laboratory, and other data. Please refer to Jessee Dominguez PA-C note for details of this patient's presentation, findings, and recommendations. I have reviewed Jessee Dominguez PA-C note and concur with documented findings. In brief, patient is an 84-year-old lady with history of hepatocellular carcinoma currently on chemo admitted with shortness of breath. Her assessment was consistent with acute congestive heart failure admitted to monitored bed for further management Hospital course: As documented above - Physical Exam Vitals/I&O's: Vital Signs Temp Pulse Resp BP Pulse Ox 97.8 F 91 16 132/71 H 94 02/28/20 08:56 02/28/20 10:29 02/28/20 10:29 02/28/20 08:56 02/28/20 11:45 Oxygen Flow Rate (L/min) 2 Oxygen Delivery Method Nasal Cannula Weight: 58.3 kg Body Mass Index (BMI) 21.4 Intake and Output for Last 24 Hours 02/26/20 02/27/20 02/28/20 23:59 23:59 23:59 Intake Total 1528.42 / 1528.42 782.33 / 782.33 620 / 620 Output Total 2975 / 2975 1575 / 2125 1400 / 1400 Balance -1446.58 / -1446.58 -792.67 / -1342.67 -780 / -780 Microbiology Past 72 Hours 02/24/20 12:50 Blood Culture (Wb) - No Site/Description Given Blood Culture - Preliminary No growth in 48 hours. 02/24/20 13:50 Blood Culture (Wb) - Arm Left Blood Culture - Preliminary No growth in 48 hours. 02/24/20 14:15 Urine Catheter - Catheter Urine Culture - Final Culture exhibits no growth. Laboratory Results 02/27/20 05:25: Cortisol 25.90 H 02/27/20 17:02: POC Glucose 192 H 02/27/20 20:58: POC Glucose 184 H 02/28/20 06:04: WBC 4.7, RBC 3.50 L, Hgb 9.1 L, Hct 28.2 L, MCV 80.6 L, MCH 26.0 L, MCHC 32.3, RDW Std Deviation 48.1 H, RDW Coeff of [place]ore[place] 16.9 H, Plt Count 257, MPV 10.1, Immature Gran % (Auto) 0.600, Neut % (Auto) 72.5 H, Lymph % (Auto) 11.0 L, [place] % (Auto) 12.3 H, Eos % (Auto) 2.8, Baso % (Auto) 0.8, Absolute Neuts (auto) 3.4, Absolute Lymphs (auto) 0.52 L, Nucleated RBC % 0, Differential Comment SCANNED 02/28/20 06:04: Sodium 127 L, Potassium 3.6, Chloride 91 L, Carbon Dioxide 27.0, Anion Gap 9, BUN 14, Creatinine 1.15 H, Estim Creat Clear Calc 33.35, Est GFR (MDRD) Af Amer 58 L, Est GFR (MDRD) Non-Af 48 L, BUN/Creatinine Ratio 12.2, Glucose 138 H, Calcium 7.7 L 02/28/20 06:40: POC Glucose 161 H 02/28/20 11:51: POC Glucose 158 H Current Medications Hydrocodone Bitart/Acetaminophen ([place] 5mg-325mg) 1 tablet PO Q4H PRN PRN PRN Reason: Pain score 1-10/10 Last Admin: 02/26/20 23:35 Dose: 1 tablet Documented by: Albuterol/Ipratropium (Duoneb) 3 ml INHALATION Q4HWA.RT [facility] Last Admin: 02/28/20 10:29 Dose: 3 ml Documented by: Carvedilol (Coreg) 6.25 mg PO BID [facility] Last Admin: 02/28/20 09:02 Dose: 6.25 mg Documented by: Furosemide (Lasix) 40 mg PO BID@1000,1800 [facility] Last Admin: 02/28/20 09:00 Dose: 40 mg Documented by: Gabapentin (Neurontin) 200 mg PO QHS [facility] Last Admin: 02/27/20 21:02 Dose: 200 mg Documented by: Heparin Sodium (Porcine) (Heparin Na) 5,000 unit SC Q12 [facility] Last Admin: 02/28/20 09:12 Dose: 5,000 unit Documented by: Sodium Chloride () 250 mls @ 15 mls/hr IV .[id number] PRN PRN Reason: Saline Flush Last Infusion: 02/26/20 10:03 Dose: Infused Documented by: Sodium Chloride () 250 mls @ 15 mls/hr IV .[id number] PRN PRN Reason: Additional IVPB Infusion Insulin Glargine (Lantus (Bkc)) 15 units SC DAILY [facility] Last Admin: 02/28/20 09:11 Dose: 15 u Documented by: Insulin Human Lispro (Humalog Kwikpen (Bkc)) 0 unit SC ACHS [facility]; Protocol Last Admin: 02/28/20 11:53 Dose: 1 u Documented by: Insulin Human Lispro (Humalog Kwikpen (Bk)) 5 unit SC DINNER [facility] Last Admin: 02/27/20 17:12 Dose: 5 u Documented by: Irbesartan (Avapro) 150 mg PO DAILY [facility] Last Admin: 02/28/20 09:10 Dose: 150 mg Documented by: Nutritional Formula (Lactose Free) (Glucerna Shake) 120 ml PO TIDCM [facility] Last Admin: 02/28/20 09:09 Dose: 120 ml Documented by: Ondansetron HCl (Zofran) 4 mg IV Q8H PRN PRN PRN Reason: NAUSEA/VOMITING Last Admin: 02/26/20 18:06 Dose: 4 mg Documented by: Pantoprazole Sodium (Protonix) 40 mg PO DAILY [facility] Last Admin: 02/28/20 09:01 Dose: 40 mg Documented by: Polyethylene Glycol (Miralax) 17 gm PO DAILY PRN PRN PRN Reason: Constipation Polysaccharide Iron [facility] ([facility]rex 150) [facility] Last Admin: 02/28/20 09:00 Dose: 150 mg Documented by: Repaglinide (Prandin) 1 mg PO BID@0800,1200 [facility] Last Admin: 02/28/20 09:01 Dose: 1 mg Documented by: Sodium Chloride () 10 - 40 ml IV UD PRN PRN Reason: SALINE FLUSH Last Admin: 02/27/20 17:11 Dose: 20 ml Documented by: Sorafenib (Nexavar) 200 mg PO BID [facility] Last Admin: 02/28/20 09:09 Dose: 200 mg Documented by: Temazepam (Restoril) 15 mg PO QHS PRN PRN PRN Reason: INSOMNIA Inpatient E&M: [id number] [facility]osp
--- NOTE | 2020-02-28 12:41 | PHA.DC.MC ---
Pharmacy Service has performed discharge medication reconciliation and counseling for this patient. 1. CARVEDILOL 6.25MG PO BID 2. FUROSEMIDE 40MG PO BID The patient's discharge medication list was reviewed for discrepancies and discrepancies were resolved. Home Medications Ipratropium [place] 0.06% [ATROVENT NASAL SPRAY] 2 spray NASAL BID 02/11/17 Pantoprazole Sodium [Protonix] 40 mg PO DAILY 02/11/17 Repaglinide [Prandin] 1 mg PO BID 02/11/17 Temazepam [Restoril] 15 mg PO QHS PRN PRN 02/11/17 ondansetron HCl 4 mg tablet 4 mg PO Q8H PRN tab 06/26/17 Gabapentin [Neurontin] 200 mg PO QHS 02/24/20 Hydrocodone Bitart/Apap 5-325 [[place] 5/325] 1 tab PO Q4H PRN PRN 02/24/20 Insulin Aspart [Novolog Flexpen] 5 units SUBCUT DINNER 02/24/20 Insulin Detemir [Levemir Flextouch] 15 unit SQ DAILY 02/24/20 Irbesartan [Avapro] 150 mg PO DAILY 02/24/20 Iron Polysaccharide Complex [Ferrex 150] 150 mg PO BID 02/24/20 Polyethylene Glycol 3350 17 gm PO DAILY PRN PRN 02/24/20 Carvedilol [Coreg (Beta Marky)] 6.25 mg PO BID #60 tab 02/28/20 Furosemide [Lasix] 40 mg PO BID@1000,1800 #60 tab 02/28/20 The patient was counseled on the following discharge medications and changes in medications for homegoing were reviewed. The Reason for Use, instructions for use, and potential side effects were reviewed for all new medications. The patient's questions regarding all of their medications were answered. The patient was able to verbally demonstrate an understanding of their discharge medications. Patient counseled by pharmacy picking techCed.
--- NOTE | 2020-02-29 16:15 | CASEMGMT ---
[facility] DC PHONE CALL DC DATE: 02/28/2020 DC DISPOSITION: Home with [facility] DC DIAGNOSIS: CHF with hypoxia LACE/STRATA: 06/09 F/U APPTS MADE PRIOR TO DC: yes PRESCRIPTIONS ACQUIRED BY PT: yes Intro role of CM to patient's son who answered phone. Reviewed appointments with him. No questions re: instructions or medications. [facility] to see patient next week for PT/OT. No care improvement suggestions were given. Clarisse CAMPOSN RN ACM
== END 2020-02-28 14:22 | disposition home or self-care (01) | DRG 291 ==
LOC: ED 13:43 → ICU 14:48 → MS3 02-25 11:22 → PCU 02-26 09:50
PROVIDERS: Hospitalist; Physician Assistant; Admitting Provider Hospitalist; Emergency Provider Emergency Medicine; PCP Internal Medicine; Visit Provider Internal Medicine
DX: I13.0 Hypertensive heart and chronic kidney disease with heart failure and stage 1 through stage 4 chronic kidney disease, or unspecified chronic kidney disease (principal); I50.21 Acute systolic (congestive) heart failure; C22.0 Liver cell carcinoma; E22.2 Syndrome of inappropriate secretion of antidiuretic hormone; K52.9 Noninfective gastroenteritis and colitis, unspecified; D50.9 Iron deficiency anemia, unspecified; E78.5 Hyperlipidemia, unspecified; K21.9 Gastro-esophageal reflux disease without esophagitis; Z79.899 Other long term (current) drug therapy; Z87.19 Personal history of other diseases of the digestive system; E86.0 Dehydration; E11.51 Type 2 diabetes mellitus with diabetic peripheral angiopathy without gangrene; Z87.891 Personal history of nicotine dependence; Z86.718 Personal history of other venous thrombosis and embolism; Z79.4 Long term (current) use of insulin; Z79.84 Long term (current) use of oral hypoglycemic drugs; F41.9 Anxiety disorder, unspecified; K58.9 Irritable bowel syndrome, unspecified; M85.80 Other specified disorders of bone density and structure, unspecified site; M48.00 Spinal stenosis, site unspecified; E11.22 Type 2 diabetes mellitus with diabetic chronic kidney disease; N18.3 Chronic kidney disease, stage 3 (moderate); K22.70 Barrett's esophagus without dysplasia; K44.9 Diaphragmatic hernia without obstruction or gangrene; E87.5 Hyperkalemia
CPT/HCPCS: 36415; 36600; 71045; 74230; 80048; 80053; 81001; 82533; 82803; 82962; 83605; 83735; 83880; 83930; 83935; 84100; 84132; 84145; 84300; 84443; 84484; 85025; 85610; 85730; 87040; 87086; 87635; 87641; 92610; 92611; 93005; 93306; 94640; 94762; 94799; 97110; 97116; 97162; 97166; 97530; 97802; 99285; J7030; J7040; J7050; A4216; J1940; J2405; U0003

== ENCOUNTER 2020-03-07 10:51 | Inpatient (IN) | payer MEDICARE, SELFPAY ==
[2020-02-24 15:25] VITALS: BMI 21.4
[2020-03-07] VITALS (7 sets, daily range): BP systolic 120–135; BP diastolic 61–69; PULSE 75–83; RESP 16–18; TEMP 36.6–36.8; O2SAT 97–98; BMI 21.6; BMI 22.6; BMI 22.7
--- NOTE | 2020-03-07 10:58 | ED.VIS.GEN ---
History of Present Illness Chief Complaint: Abn Labs Informant: Patient, Family Narrative: 84-year-old female with history of hyponatremia, hepatocellular carcinoma presenting for abnormal lab work which was done outpatient yesterday. Her sodium was 119. Patient states that she feels generally weak. She is not complaining of dizziness. She is walking with her walker but does require assistance from her . She denies fever or chills. She is not having any pain anywhere. does state that she is slightly confused at times. Patient was recently admitted to the [facility] and diagnosed with congestive heart failure. She was discharged home with Lasix and the states they did not know when she was supposed to go off of it. They called her PCP who told him to hold her dose today and come to the emergency room. - Past Medical History (1) Acute systolic (congestive) heart failure Status: Chronic (2) Non-ischemic cardiomyopathy Status: Chronic (3) Right ventricular dilation Status: Chronic (4) Essential (primary) hypertension Status: Chronic (5) Anemia Status: Chronic (6) Generalized weakness Status: Chronic (7) Hepatocellular carcinoma Status: Chronic (8) Hyperlipidemia Status: Chronic Past Medical History - Allergies and Home Meds Allergies/Adverse Reactions: Allergies aspirin Allergy (Verified 03/07/20 10:54) Unknown atorvastatin calcium [From Lipitor] Allergy (Verified 03/07/20 10:54) Unknown baclofen Allergy (Verified 03/07/20 10:54) Unknown celecoxib [From Celebrex] Allergy (Verified 03/07/20 10:54) Unknown flavoxate Allergy (Verified 03/07/20 10:54) Unknown glimepiride Allergy (Verified 03/07/20 10:54) Unknown hydrochlorothiazide Allergy (Verified 03/07/20 10:54) Unknown ibuprofen Allergy (Verified 03/07/20 10:54) Unknown losartan potassium [From Cozaar] Allergy (Verified 03/07/20 10:54) Unknown mirtazapine Allergy (Verified 03/07/20 10:54) Unknown nabumetone Allergy (Verified 03/07/20 10:54) Unknown orphenadrine Allergy (Verified 03/07/20 10:54) Unknown oxybutynin Allergy (Verified 03/07/20 10:54) Unknown oxycodone HCl [From Percocet] Allergy (Verified 03/07/20 10:54) Unknown paroxetine HCl [From Paxil] Allergy (Verified 03/07/20 10:54) Unknown pravastatin Allergy (Verified 03/07/20 10:54) Unknown pseudoephedrine HCl [From Sudafed] Allergy (Verified 03/07/20 10:54) Unknown simvastatin [From Zocor] Allergy (Verified 03/07/20 10:54) Unknown Sulfa (Sulfonamide Antibiotics) Allergy (Verified 03/07/20 10:54) Unknown tolterodine tartrate [From Detrol] Allergy (Verified 03/07/20 10:54) Unknown Prior records reviewed: Yes Past Medical History: - - Reviewed and problem list Surgical History: - Smoking Status: Former smoker - Family History Maternal Family History: Family History (Last Reviewed 03/07/20 @ 14:[address] Diaz Lester, DO) Unknown Arthritis Skin cancer Asthma Bleeding disorder Breast cancer Diabetes Heart disease Hypertension High cholesterol Cancer Review of Systems General: Reports: Malaise. Denies: Chills, Fever Eyes: Denies: Visual changes - bilaterally, Diplopia ENT: Denies: Rhinorrhea, Sore throat Cardiovascular: Denies: Chest pain, Palpitations Respiratory: Denies: Dyspnea, Cough, Dyspnea on exertion Musculoskeletal: Denies: Myalgias, Arthralgias Skin: Reports: Rash, Wounds, - - Right heel pressure ulcer Neurological: Denies: Headache, Weakness Endocrine: Denies: Polyuria, Polydipsia Physical Exam Vital Signs/Narrative: Vital Signs Temp Pulse Resp BP Pulse Ox 03/07/20 10:52 98 F 83 18 127/63 H 98 General: Cachectic, No Acute Distress Head: Normocephalic, Atraumatic Eyes: Pale conjunctiva. Negative for: Scleral icterus ENT: Moist mucous membranes, No rhinorrhea Cardiovascular: Regular rate, Regular rhythm, No murmurs Respiratory: No distress, CTA bilaterally Abdomen: Soft, Nondistended Back: Negative for: Nontender, Normal Inspection Extremities: - - 1+ pitting edema bilateral lower extremities. Negative for: Nontender, Calf Tenderness Skin: No rash, Pallor. Negative for: Cyanosis Neurological: Alert, Oriented x3 Psychological: Normal affect, Normal Mood Diagnostic/Tx/Re-eval Clinical Impression(s) from Imaging Studies Chest X-Ray 03/07/20 11:55 IMPRESSION: Near completely resolved perihilar airspace disease COPD/emphysema Electronically Signed: Diaz Cazares, DO at 12:41 EDT Tel , Service support , Laboratory Data 03/07/20 03/07/20 03/07/20 11:30 11:30 12:58 Sodium 123 L Potassium 4.5 Chloride 89 L Carbon Dioxide 29.0 Anion Gap 5 BUN 34 H Creatinine 1.57 H Estim Creat Clear Calc 24.43 Est GFR (MDRD) Af Amer 40 L Est GFR (MDRD) Non-Af 33 L BUN/Creatinine Ratio 21.7 H Glucose 220 H Calcium 8.3 L Total Bilirubin 0.60 Direct Bilirubin 0.31 H AST 67 H ALT 57 H Alkaline Phosphatase 263 H Ammonia < 10.0 L Total Protein 6.7 Albumin 2.1 L Globulin 4.6 H Albumin/Globulin Ratio 0.5 L Lipase 71 L Urine Color Yellow Urine Clarity Clear Urine pH 6.0 Ur Specific [place] 1.010 Urine Protein Negative Urine Glucose (UA) Normal Urine Ketones Negative Urine Occult Blood Negative Urine Nitrite Negative Urine Bilirubin Negative Urine Urobilinogen Normal Ur Leukocyte Esterase Negative Urine RBC 0 SEEN Urine WBC 0 SEEN Ur Squamous Epith Cells 0 SEEN Urine Bacteria 0 SEEN Urine Mucus 0 SEEN - Medical Decision Making 84-year-old female presenting with abnormal labs which included a mildly elevated potassium as well as sodium of 119. Today her repeat lab work shows stable elevation in her LFTs. Patient also has a slight increase in her sodium to 123 however this is still abnormal for her. It does appear that she has acute kidney injury and likely this is due to diuresis. Her chief complaints are generalized weakness patient's chest x-ray showed improvement from her previous chest x-ray. Her vital signs are stable and she is afebrile. Given that she is hyponatremic and weak and normally ambulates with a walker a as well as requiring more assistance patient will be admitted to the hospital. Impression: 1. Acute kidney injury 2. Hyponatremia ED Disposition - Plan for ED Patient: Disposition: [facility]
--- NOTE | 2020-03-07 11:10 | EKG12_ITS ---
Test Reason : ABN LABS Blood Pressure : / mmHG Vent. Rate : 083 BPM Atrial Rate : 083 BPM P-R Int : 174 ms QRS Dur : 108 ms QT Int : 384 ms P-R-T Axes : 083 -13 -27 degrees QTc Int : 451 ms Normal sinus rhythm Septal infarct , age undetermined Abnormal ECG Confirmed by KENNEDY VALENTIN, MIROSLAVA ([id number]), graphics editor NANCI FAJARDO ([id number]) on 03/09/2020 10:49:09 AM Referred By: ZIGGY Confirmed By:MIROSLAVA BENAVIDES MD
--- NOTE | 2020-03-07 11:55 | RAD_ITS ---
STUDY: X-RAY CHEST REASON FOR EXAM: Female, 84 years old. LOW SODIUM, WEAKNESS TECHNIQUE: Single AP portable view of the chest. COMPARISON: 02/25/2020. FINDINGS: Cardiac silhouette unremarkable. Pulmonary vascularity unremarkable. Aorta calcified. Near completely resolved perihilar airspace disease. No pleural effusions. COPD/emphysema. Atelectasis/scarring. Upper abdomen unremarkable. Osseous structures demineralized with degenerative features. No pneumothorax. RAD/Chest 1 View (Portable) IMPRESSION: Near completely resolved perihilar airspace disease COPD/emphysema Electronically Signed: Diaz Cazares DO at 12:41 EDT Tel , Service support ,
[2020-03-07 12:02] LABS: ALB/GLOB Ratio 0.5 RATIO (0.9-2.4); AST(SGOT) 67 U/L (15-37); Alanine Aminotransfer ALT/SGPT 57 U/L (13-56); Albumin, Serum 2.1 g/dL (3.2-5.0); Alkaline Phosphatase 263 U/L (45-117); Anion Gap 5 (5-15); BUN 34 mg/dL (7-18); BUN/Creat Ratio 21.7 RATIO (10-20); Bilirubin, Direct 0.31 mg/dL (0.00-0.30); Calcium,Total 8.3 mg/dL (8.5-10.1); Chloride 89 mmol/L (98-107); Creatinine, Serum 1.57 mg/dL (0.55-1.02); EST Glomerular Filtration Rate 33 mL/min (>60); Est Glom Filt Rate - Afr Amer 40 mL/min (>60); Estimated Creatinine Clearance 24.43 ml/min; Globulin 4.6 g/dL (2.2-4.2); Glucose 220 mg/dL (74-106); Lipase 71 U/L (73-393); Potassium 4.5 mmol/L (3.5-5.1); Protein, Total 6.7 g/dL (6.4-8.2); Sodium Level 123 mmol/L (136-145)
[2020-03-07 12:39] LABS: Ammonia < 10.0 umol/L (11-32)
[2020-03-07 13:10] LABS: Bacteria 0 SEEN /hpf (None Seen); Mucous, Urine 0 SEEN /hpf (<or=2+); Red Blood Cells-Urine 0 SEEN /hpf (0-5); Squamous Epithelial Cells - UA 0 SEEN /hpf (5-10); White Blood Cells 0 SEEN /hpf (0-5)
[2020-03-07 13:12] LABS: Color, Urine Yellow (Yellow); Glucose, Dipstick Normal (Normal); Ketone-Dipstick Negative (Negative); Leukocyte Esterase-Dipstick Negative /ul (Negative); Nitrite-Dipstick Negative (Negative); Occult Blood-Urine Negative /ul (Negative); Protein-Dipstick Negative (Negative); Urine Bilirubin Dipstick Negative (Negative); Urine Clarity Clear (Clear); Urine Urobilinogen Normal (Normal)
--- NOTE | 2020-03-07 14:20 | NURSING ---
106 EUSEBIOPPPERI HYPONATREMIA, VERONICA
--- NOTE | 2020-03-07 14:40 | PCM.HP.STD ---
Problem List (1) VERONICA (acute kidney injury) Status: Acute (2) Generalized weakness Status: Chronic (3) Right ventricular dilation Status: Chronic (4) Non-ischemic cardiomyopathy Status: Chronic (5) Acute systolic (congestive) heart failure Status: Chronic (6) Essential (primary) hypertension Status: Chronic (7) Hyperlipidemia Status: Chronic (8) PAD (peripheral artery disease) Status: Chronic (9) Hyponatremia Status: Chronic (10) Anemia Status: Chronic (11) Hepatocellular carcinoma Status: Chronic History of Present Illness Date of Admission: 03/07/20 Chief Complaint: hyponatremia The patient is a 84 year old F who was sent in due to abnormal labs. Patient previously had sodium of 119 and was stopped on her Lasix today is 123 and was sent into the hospital. Patient's creatinine was also up to 1.5, from baseline of 1.15. There had been some mention to the emergency room physician that the patient was confused and they did order lab work for that which showed no abnormalities. There they did endorse that the patient has just been weaker than normal. Patient was very apprehensive about coming into the hospital because she did develop a wound on her right heel from her last hospitalization. [] Past Medical History Past Medical History (Chronic Problems): Chronic Problems (Last Reviewed 03/07/20 @ 14:[address] Diaz Lester DO) Generalized weakness (Chronic) Right ventricular dilation (Chronic) Non-ischemic cardiomyopathy (Chronic) Acute systolic (congestive) heart failure (Chronic 02/24/20) Essential (primary) hypertension (Chronic) Hyperlipidemia (Chronic) PAD (peripheral artery disease) (Chronic) Hyponatremia (Chronic) Anemia (Chronic) Hepatocellular carcinoma (Chronic) Medical History: Medical History (Last Reviewed 03/07/20 @ 14:[address] 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 Cataracts, bilateral H26.9 Degenerative disc disease Diabetes type 2, controlled E11.9 Dx : 1987 Last exacerbation : DKA : never Hypoglycemic episode : never ER visit : never Gastroesophageal reflux disease K21.9 Hiatal hernia K44.9 Hx of blood clots Z86.718 Hyperlipidemia E78.5 IBS (irritable bowel syndrome) K58.9 Osteopenia M85.80 PAD (peripheral artery disease) I73.9 Spinal stenosis M48.00 Type 2 diabetes mellitus E11.9 history of ischemic colitis Fever (Resolved) R50.9 Rectal bleeding (Inactive) K62.5 Allergies aspirin Allergy (Verified 03/07/20 10:54) Unknown atorvastatin calcium [From Lipitor] Allergy (Verified 03/07/20 10:54) Unknown baclofen Allergy (Verified 03/07/20 10:54) Unknown celecoxib [From Celebrex] Allergy (Verified 03/07/20 10:54) Unknown flavoxate Allergy (Verified 03/07/20 10:54) Unknown glimepiride Allergy (Verified 03/07/20 10:54) Unknown hydrochlorothiazide Allergy (Verified 03/07/20 10:54) Unknown ibuprofen Allergy (Verified 03/07/20 10:54) Unknown losartan potassium [From Cozaar] Allergy (Verified 03/07/20 10:54) Unknown mirtazapine Allergy (Verified 03/07/20 10:54) Unknown nabumetone Allergy (Verified 03/07/20 10:54) Unknown orphenadrine Allergy (Verified 03/07/20 10:54) Unknown oxybutynin Allergy (Verified 03/07/20 10:54) Unknown oxycodone HCl [From Percocet] Allergy (Verified 03/07/20 10:54) Unknown paroxetine HCl [From Paxil] Allergy (Verified 03/07/20 10:54) Unknown pravastatin Allergy (Verified 03/07/20 10:54) Unknown pseudoephedrine HCl [From Sudafed] Allergy (Verified 03/07/20 10:54) Unknown simvastatin [From Zocor] Allergy (Verified 03/07/20 10:54) Unknown Sulfa (Sulfonamide Antibiotics) Allergy (Verified 03/07/20 10:54) Unknown tolterodine tartrate [From Detrol] Allergy (Verified 03/07/20 10:54) Unknown Home Medications: Ambulatory Orders Medication Instructions Recorded Ipratropium [place] 0.06% 2 spray NASAL BID 02/11/17 [ATROVENT NASAL SPRAY] Pantoprazole Sodium [Protonix] 40 mg PO DAILY 02/11/17 Repaglinide [Prandin] 1 mg PO BID 02/11/17 Temazepam [Restoril] 15 mg PO QHS PRN PRN 02/11/17 ondansetron HCl 4 mg tablet 4 mg PO Q8H PRN tab 06/26/17 Gabapentin [Neurontin] 200 mg PO QHS 02/24/20 Hydrocodone Bitart/Apap 5-325 1 tab PO Q4H PRN PRN 02/24/20 [[place] 5/325] Insulin Detemir [Levemir Flextouch] 10 unit SQ DAILY 02/24/20 Irbesartan [Avapro] 150 mg PO DAILY 02/24/20 Iron Polysaccharide Complex 150 mg PO BID 02/24/20 [Ferrex 150] Polyethylene Glycol 3350 17 gm PO DAILY PRN PRN 02/24/20 Carvedilol [Coreg (Beta Marky)] 6.25 mg PO BID 03/07/20 Furosemide [Lasix] 40 mg PO BID@1000,1800 03/07/20 Surgical History: Surgical History (Last Reviewed 03/07/20 @ 14:[address] Diaz Lester DO) History of left heart catheterization Onset Date: 2009 Z98.890 History of partial hysterectomy Z98.890, Z90.710 Surgical History: - Psychiatric History: No pertinent psych hx Smoking Status: Former smoker - *Family History Maternal Family History: Family History (Last Reviewed 03/07/20 @ 14:[address] Diaz Lester DO) Unknown Arthritis Skin cancer Asthma Bleeding disorder Breast cancer Diabetes Heart disease Hypertension High cholesterol Cancer Review of Systems Comment: All review of systems were negative except as mentioned above in the history of present illness and the other review of systems. VTE Information - Inpt Only VTE Present on Admission: No VTE Mechan Device Prophylaxis: None VTE Pharm Prophylaxis ordered?: Yes Patient Problems: Active and Suspected Problems (Last Reviewed 03/07/20 @ 14:[address] Diaz Lester DO) VERONICA (acute kidney injury) (Acute) - Physical Exam Vitals/I&O's: Vital Signs Temp Pulse Resp BP Pulse Ox 36.8 C 80 18 130/66 H 98 03/07/20 14:15 03/07/20 14:15 03/07/20 14:15 03/07/20 14:15 03/07/20 14:15 Oxygen Delivery Method Room Air Weight: 58.967 kg Body Mass Index (BMI) 21.6 General: Alert, Cooperative, No apparent distress, - - Hard of hearing HEENT: Atraumatic, Normocephalic, - - No scleral icterus Oral: - - Wearing a mask, did not remove. Neck: No Nodes, Thyroid Normal Size and Texture Lungs: Clear to auscultation, Normal air movement, No rhonchi, No wheeze, No rales Cardiovascular: Regular rate, Regular Rhythm, Normal S1, Normal S2, No murmurs Abdomen: Bowel Sounds Present, Soft, Non Tender, Non-Distended, No Hepato-splenomegaly Extremities: No Calf Tenderness, Edema Skin: No rashes, - - Stage I ulcer on the right heel Musculoskeletal: No Tenderness to Palpation of Joints or Extremities, No Muscle Wasting Neurological: Muscle tone normal, - - No clonus Psych/Mental Status: Appropriate, Flat Affect Laboratory Results 03/07/20 11:30: Sodium 123 L, Potassium 4.5, Chloride 89 L, Carbon Dioxide 29.0, Anion Gap 5, BUN 34 H, Creatinine 1.57 H, Estim Creat Clear Calc 24.43, Est GFR (MDRD) Af Amer 40 L, Est GFR (MDRD) Non-Af 33 L, BUN/Creatinine Ratio 21.7 H, Glucose 220 H, Calcium 8.3 L, Total Bilirubin 0.60, Direct Bilirubin 0.31 H, AST 67 H, ALT 57 H, Alkaline Phosphatase 263 H, Total Protein 6.7, Albumin 2.1 L, Globulin 4.6 H, Albumin/Globulin Ratio 0.5 L, Lipase 71 L 03/07/20 11:30: Ammonia < 10.0 L 03/07/20 12:58: Urine Color Yellow, Urine Clarity Clear, Urine pH 6.0, Ur Specific [place] 1.010, Urine Protein Negative, Urine Glucose (UA) Normal, Urine Ketones Negative, Urine Occult Blood Negative, Urine Nitrite Negative, Urine Bilirubin Negative, Urine Urobilinogen Normal, Ur Leukocyte Esterase Negative, Urine RBC 0 SEEN, Urine WBC 0 SEEN, Ur Squamous Epith Cells 0 SEEN, Urine Bacteria 0 SEEN, Urine Mucus 0 SEEN Clinical Impression(s) from Imaging Studies Chest X-Ray 03/07/20 11:55 IMPRESSION: Near completely resolved perihilar airspace disease COPD/emphysema Electronically Signed: Diaz Cazares DO at 12:41 EDT Tel , Service support , Current Medications Acetaminophen (Tylenol) 650 mg PO Q6H PRN PRN PRN Reason: Pain Score 1-10/Temp > 100.7 F Hydrocodone Bitart/Acetaminophen ([place] 5mg-325mg) tablet PO Q4H PRN PRN PRN Reason: P Carvedilol (Coreg) 6.25 mg PO BID MICHELINE Gabapentin (Neurontin) 200 mg PO QHS MIC[facility] Heparin Sodium (Porcine) (Heparin Na) 5,000 unit SC Q8 MICHELINE Ipratropium Causey (Atrovent Nasal [place] (G)) 2 spray NASAL BID MICHELINE Non-Formulary Medication (Insulin Detemir [Levemir Flextouch]) 10 unit SQ DAILY MICHELINE Non-Formulary Medication (Iron Polysaccharide Complex [Ferrex 150]) 150 mg PO BID MICHELINE Non-Formulary Medication (Ondansetron Hcl [Zofran]) 4 mg PO Q8H PRN PRN Reason: NAUSEA Non-Formulary Medication (Polyethylene Glycol 3350) 17 gm PO DAILY PRN PRN PRN Reason: Constipation Non-Formulary Medication (Repaglinide [Prandin]) 1 mg PO BID MICHELINE Ondansetron HCl (Zofran) 4 mg IV Q8H PRN PRN PRN Reason: NAUSEA/VOMITING Pantoprazole Sodium (Protonix) 40 mg PO DAILY MICHELINE Temazepam (Restoril) 15 mg PO QHS PRN PRN PRN Reason: INSOMNIA Assessment/Plan All Active Problems (Last Reviewed 03/07/20 @ 14:[address] Diaz Lester, ) VERONICA (acute kidney injury) (Acute) Fever (Resolved) 1. 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 Patient has had extensive work-up previously that indicate that this is SIADH. Will hold off on additional fluids at this time and initiate fluid restriction. Additionally, will hold off on her furosemide. Patient may be encouraged to utilize salt but would need to exercise caution given her heart failure.. 2. Acute kidney injury: Creatinine up to 1.571.15 on February 27. Suspect prerenal. Discontinue furosemide. 3. Heart failure with reduced ejection fraction: EF of 20 to 25%. Holding furosemide as well as irbesartan kidney acute kidney injury. Continue with carvedilol. Patient appears to be compensated at this time. Follow-up with cardiology as outpatient. 4. Diabetes mellitus type II: Continue with basal insulin but also add signed scale insulin. 5. Hepatocellular carcinoma: Had been on sorafenib, but was held given the GI issues that may be causing. Follow-up with Dr. Thao 6. VTE prophylaxis: Moderate risk. Subcu heparin. Advanced care planning: Spent an additional 20 minutes discussing with the patient and her son at bedside about advanced directives, including full CODE STATUS and DNR Comfort Care arrest. Patient wanted DNR Comfort Care arrest. Discussed further and that she would be okay with short-term intubation. She is already involved with palliative care. Patient was very insistent on returning home and told her that I could discharge her at this time but only if she were to be hospice. Patient not interested in hospice services at this time. Inpatient E&M: 21998 Init Hosp L3 Procedures: 96759 Advncd Care Plan 30 Min
[2020-03-07 16:21] LABS: Bedside Glucose 158 mg/dL (70-110)
[2020-03-07] MEDS: Insulin Lispro 100 UNIT/ML INSULN.PEN SC (17:05)
[2020-03-07] MEDS: Iron Polysaccharide Complex 150 MG CAPSULE PO (17:06)
[2020-03-07] MEDS: HYDROcodone Bitartrate/Apap 5/325 Tablet PO (21:17)
[2020-03-07] MEDS: Carvedilol 6.25 MG Tablet PO (21:18)
[2020-03-07] MEDS: Heparin Injection (Vial) 5,000 UNIT/ML VIAL 5000 UNIT SC (21:18)
[2020-03-07] MEDS: Gabapentin 100 MG Capsule 200 MG PO (21:18)
[2020-03-07] MEDS: Temazepam 15 MG Capsule PO (22:47)
[2020-03-07 22:56] LABS: Bedside Glucose 126 mg/dL (70-110)
[2020-03-08] VITALS (10 sets, daily range): BP systolic 101–129; BP diastolic 46–59; PULSE 68–82; RESP 16; TEMP 36.4–36.7; O2SAT 96–97
[2020-03-08] MEDS: Heparin Injection (Vial) 5,000 UNIT/ML VIAL 5000 UNIT SC ×3 (06:16→21:37)
[2020-03-08] MEDS: HYDROcodone Bitartrate/Apap 5/325 Tablet PO ×3 (06:16→21:36)
[2020-03-08 06:45] LABS: Bedside Glucose 80 mg/dL (70-110)
[2020-03-08 07:28] LABS: Anion Gap 4 (5-15); BUN 29 mg/dL (7-18); BUN/Creat Ratio 20.4 RATIO (10-20); Chloride 90 mmol/L (98-107); Creatinine, Serum 1.42 mg/dL (0.55-1.02); EST Glomerular Filtration Rate 38 mL/min (>60); Est Glom Filt Rate - Afr Amer 45 mL/min (>60); Estimated Creatinine Clearance 27.01 ml/min; Glucose 75 mg/dL (74-106); Potassium 4.1 mmol/L (3.5-5.1); Sodium Level 125 mmol/L (136-145)
[2020-03-08] MEDS: Iron Polysaccharide Complex 150 MG CAPSULE PO ×2 (08:59→16:33)
--- NOTE | 2020-03-08 09:08 | PCM.PN.HOSP ---
Patient Problems: Active and Suspected Problems (Last Reviewed 03/07/20 @ 14:[address] Diaz Lester, DO) VERONICA (acute kidney injury) (Acute) Subjective: States that she is feeling much better today, no issues overnight. Vitals/I&O's: Vital Signs Temp Pulse Resp BP Pulse Ox 98.0 F 78 16 128/56 H 97 03/08/20 09:02 03/08/20 09:02 03/08/20 09:02 03/08/20 09:02 03/08/20 09:02 Oxygen Delivery Method Room Air Weight: 135 lb 9.349 oz Body Mass Index (BMI) 22.6 Intake and Output for Last 24 Hours 03/06/20 03/07/20 03/08/20 23:59 23:59 23:59 Intake Total 480 / 480 120 / 120 Balance 480 / 480 120 / 120 General: Alert, Oriented x3, Cooperative, No apparent distress HEENT: Atraumatic, PERRLA, EOMI, Normocephalic Oral: Moist Mucosa Neck: Supple, No JVD Lungs: Clear to auscultation, Normal air movement, No rhonchi, No wheeze, No rales, Diminished Cardiovascular: Regular rate, Regular Rhythm, Normal S1, Normal S2, No murmurs Abdomen: Soft, Non Tender, Non-Distended, No Hepato-splenomegaly Extremities: Capillary Refill Less than 3 Seconds, Edema - 1-2+ pitting edema bilaterally Skin: - - Stage I decubitus ulcer on her right heel Neurological: Neuro grossly intact, Sensory exam intact to light touch and pain Psych/Mental Status: Normal Affect, Appropriate Laboratory Results 03/07/20 11:30: Sodium 123 L, Potassium 4.5, Chloride 89 L, Carbon Dioxide 29.0, Anion Gap 5, BUN 34 H, Creatinine 1.57 H, Estim Creat Clear Calc 24.43, Est GFR (MDRD) Af Amer 40 L, Est GFR (MDRD) Non-Af 33 L, BUN/Creatinine Ratio 21.7 H, Glucose 220 H, Calcium 8.3 L, Total Bilirubin 0.60, Direct Bilirubin 0.31 H, AST 67 H, ALT 57 H, Alkaline Phosphatase 263 H, Total Protein 6.7, Albumin 2.1 L, Globulin 4.6 H, Albumin/Globulin Ratio 0.5 L, Lipase 71 L 03/07/20 11:30: Ammonia < 10.0 L 03/07/20 12:58: Urine Color Yellow, Urine Clarity Clear, Urine pH 6.0, Ur Specific [place] 1.010, Urine Protein Negative, Urine Glucose (UA) Normal, Urine Ketones Negative, Urine Occult Blood Negative, Urine Nitrite Negative, Urine Bilirubin Negative, Urine Urobilinogen Normal, Ur Leukocyte Esterase Negative, Urine RBC 0 SEEN, Urine WBC 0 SEEN, Ur Squamous Epith Cells 0 SEEN, Urine Bacteria 0 SEEN, Urine Mucus 0 SEEN 03/07/20 16:11: POC Glucose 158 H 03/07/20 22:49: POC Glucose 126 H 03/08/20 06:25: Sodium 125 L, Potassium 4.1, Chloride 90 L, Carbon Dioxide 31.0, Anion Gap 4 L, BUN 29 H, Creatinine 1.42 H, Estim Creat Clear Calc 27.01, Est GFR (MDRD) Af Amer 45 L, Est GFR (MDRD) Non-Af 38 L, BUN/Creatinine Ratio 20.4 H, Glucose 75, Calcium 8.0 L 03/08/20 06:32: POC Glucose 80 Current Medications Acetaminophen (Tylenol) 650 mg PO Q6H PRN PRN PRN Reason: Pain Score 1-10/Temp > 100.7 F Hydrocodone Bitart/Acetaminophen ([place] 5mg-325mg) 1 tablet PO Q4H PRN PRN PRN Reason: Pain Score 1-10/10 Last Admin: 03/08/20 06:16 Dose: 1 tablet Documented by: Carvedilol (Coreg) 6.25 mg PO BID [facility] Last Admin: 03/07/20 21:18 Dose: 6.25 mg Documented by: Dextrose (D50w Syringe) 0 gm IV X1 PRN; Protocol PRN Reason: Hypoglycemia Docusate Sodium (Colace) 100 mg PO DAILY PRN PRN PRN Reason: stool Gabapentin (Neurontin) 200 mg PO QHS [facility] Last Admin: 03/07/20 21:18 Dose: 200 mg Documented by: Glucagon () 1 mg IM .X1 PRN PRN Reason: Hypoglycemia Heparin Sodium (Porcine) (Heparin Na) 5,000 unit SC Q8 [facility] Last Admin: 03/08/20 06:16 Dose: 5,000 unit Documented by: Insulin Glargine (Lantus (Bkc)) 10 units SC DAILY [facility] Insulin Human Lispro (Humalog Kwikpen ([facility])) 0 unit SC TIDAC [facility]; Protocol Last Admin: 03/08/20 06:38 Dose: Not Given Documented by: Ipratropium [place] (Atrovent Nasal [place] (G)) 2 spray NASAL BID [facility] Last Admin: 03/07/20 21:17 Dose: Not Given Documented by: Ondansetron HCl (Zofran Odt) 4 mg PO Q8H PRN PRN Reason: NAUSEA/VOMITING Ondansetron HCl (Zofran) 4 mg IV Q8H PRN PRN PRN Reason: NAUSEA/VOMITING Pantoprazole Sodium (Protonix) 40 mg PO DAILY [facility] Polyethylene Glycol (Miralax) 17 gm PO DAILY PRN PRN PRN Reason: CONSTIPATION Polysaccharide Iron Complex (Ferrex 150) [facility] Last Admin: 03/08/20 08:59 Dose: 150 mg Documented by: Repaglinide (Prandin) 1 mg PO BID@0800,1200 [facility] Last Admin: 03/08/20 08:59 Dose: 1 mg Documented by: Sodium Chloride () 10 - 40 ml IV UD PRN PRN Reason: SALINE FLUSH Temazepam (Restoril) 15 mg PO QHS PRN PRN Reason: INSOMNIA Last Admin: 03/07/20 22:47 Dose: 15 mg Documented by: STROKE Vital Signs/Narrative: Vital Signs Temp Pulse Resp BP Pulse Ox 03/08/20 09:02 98.0 F 78 16 128/56 H 97 03/08/20 07:38 71 Medical Necessity - Tobacco Use Smoking Status: Former smoker Tobacco Use: Cigarettes Assessment/Plan All Active Problems (Last Reviewed 03/07/20 @ 14:[address] Diaz Lester, DO) VERONICA (acute kidney injury) (Acute) Fever (Resolved) 1. Hyponatremia secondary to SIADH -Sodium is now 125, will continue with fluid restriction -Hold off on providing her with any sodium -We will recheck in the morning 2. Chronic systolic CHF/HTN/HLD -Hold off on Lasix, continue to hold Avapro until creatinine is improved, his baseline creatinine is around 1.1 -Blood pressure is stable -Continue with Coreg 3. IDDM 2/CKD 3 -Continue to monitor blood sugar -Continue with Lantus and sliding scale insulin -Accu-Cheks AC at bedtime, continue with Prandin 4. GERD -Stable -Continue with PPI VTE: Heparin Inpatient E&M: 55187 Subs Hosp L2
[2020-03-08] MEDS: Carvedilol 6.25 MG Tablet PO ×2 (10:01→21:36)
[2020-03-08] MEDS: Pantoprazole Sodium 40 MG Tablet PO (10:01)
[2020-03-08] MEDS: Ipratropium Bromide 0.06% NASAL SPRAY 2 SPRAY NASAL ×2 (10:03→21:37)
--- NOTE | 2020-03-08 10:42 | NURSING ---
wound photo: left lateral foot
--- NOTE | 2020-03-08 10:43 | NURSING ---
wound photo: right heel
[2020-03-08] MEDS: Insulin Lispro 100 UNIT/ML INSULN.PEN SC ×2 (11:58→16:33)
[2020-03-08 12:30] LABS: Bedside Glucose 194 mg/dL (70-110)
--- NOTE | 2020-03-08 14:35 | CASEMGMT ---
Readmission chart review: Pt was initially admitted 02/23-02/28/2020 for Sepsis, Hyperkalemia, Hyponatremia. Pt also has hepatocellular carcinoma, was on Sorafenib, and follows with Dr. Thao. Pt is current with palliative care. Pt lives with son who helps care for her at home. Pt was sent home with order for C PT/OT and set up with [facility]. Pt was also to have BMP drawn in [address] [facility] Outreach lab after order obtained from Dr. Salmon. Pt returned to [facility] ED on 03/07/2020 when bloodwork showed low sodium. Pt also with elevated potassium. Pt wanted to go home from ED but Dr. Lester, admitting physician, stated the only way he would send her home from ED is if it was on hospice and pt declined at that time. CM to follow for PT/OT evals and for any further discharge planning/needs. Scooter ABDI CM
[2020-03-08] MEDS: Acetaminophen 325 MG Tablet 650 MG PO (16:32)
[2020-03-08] MEDS: Juven (unflavored) Packet 1 PACKET PO (16:37)
[2020-03-08 16:40] LABS: Bedside Glucose 164 mg/dL (70-110)
[2020-03-08] MEDS: Temazepam 15 MG Capsule PO (21:36)
[2020-03-08] MEDS: Gabapentin 100 MG Capsule 200 MG PO (21:36)
[2020-03-08 21:56] LABS: Bedside Glucose 155 mg/dL (70-110)
[2020-03-09 03:00] VITALS: PULSE 74
[2020-03-09 03:35] VITALS: BP 123/60; PULSE 75; RESP 16; TEMP 36.6; O2SAT 98
[2020-03-09] MEDS: HYDROcodone Bitartrate/Apap 5/325 Tablet PO (04:30)
[2020-03-09] MEDS: Heparin Injection (Vial) 5,000 UNIT/ML VIAL 5000 UNIT SC (05:01)
[2020-03-09 06:50] LABS: Bedside Glucose 115 mg/dL (70-110)
[2020-03-09 06:58] LABS: Anion Gap 4 (5-15); BUN 32 mg/dL (7-18); BUN/Creat Ratio 25.2 RATIO (10-20); Calcium,Total 8.2 mg/dL (8.5-10.1); Chloride 94 mmol/L (98-107); Creatinine, Serum 1.27 mg/dL (0.55-1.02); EST Glomerular Filtration Rate 43 mL/min (>60); Est Glom Filt Rate - Afr Amer 52 mL/min (>60); Glucose 97 mg/dL (74-106); Potassium 4.3 mmol/L (3.5-5.1); Sodium Level 128 mmol/L (136-145)
[2020-03-09 07:00] VITALS: PULSE 74
[2020-03-09 09:25] VITALS: BP 112/57; PULSE 83; RESP 14; TEMP 36.6; O2SAT 99
[2020-03-09] MEDS: Pantoprazole Sodium 40 MG Tablet PO (09:27)
[2020-03-09] MEDS: Iron Polysaccharide Complex 150 MG CAPSULE PO (09:27)
[2020-03-09] MEDS: Juven (unflavored) Packet 1 PACKET PO (09:28)
[2020-03-09] MEDS: Carvedilol 6.25 MG Tablet PO (09:28)
[2020-03-09] MEDS: Ipratropium Bromide 0.06% NASAL SPRAY 2 SPRAY NASAL (09:28)
--- NOTE | 2020-03-09 10:08 | NURSING ---
Deep tissue pressure injuries remains intact to bilateral feet. no signs of infection noted. blisters remains intact with minimal fluid noted within the blister.
--- NOTE | 2020-03-09 10:27 | PCM.DC ---
- Discharge Diagnoses Current Active Problems: Current Active and Chronic Problems (Last Reviewed 03/07/20 @ 14:[address] Diaz Lester, DO) VERONICA (acute kidney injury) (Acute) You will use the following diet at home:: Calorie/Carbohydrate Controlled (specify 1200, 1400, etc) - 1600 calories, Cardiac, Fluid restricted (specify 2000 mls, 1500 mls) - 1500 Your food should be the consistency of: Regular Your liquids should be the consistency of: Regular/Thin Discharge Activity: Return to Normal Activity Call your doctor if you observe: Fever of 101 or Higher, Shortness of breath, Dizziness, Fainting spells, Swelling in the ankles, Chest pain, Increased palpitations (irregular heartbeat) Additional Instructions: Follow-up with PCP to monitor Sodium as an outpatient. Allergies/Adverse Reactions: Allergies aspirin Allergy (Verified 03/07/20 10:54) Unknown atorvastatin calcium [From Lipitor] Allergy (Verified 03/07/20 10:54) Unknown baclofen Allergy (Verified 03/07/20 10:54) Unknown celecoxib [From Celebrex] Allergy (Verified 03/07/20 10:54) Unknown flavoxate Allergy (Verified 03/07/20 10:54) Unknown glimepiride Allergy (Verified 03/07/20 10:54) Unknown hydrochlorothiazide Allergy (Verified 03/07/20 10:54) Unknown ibuprofen Allergy (Verified 03/07/20 10:54) Unknown losartan potassium [From Cozaar] Allergy (Verified 03/07/20 10:54) Unknown mirtazapine Allergy (Verified 03/07/20 10:54) Unknown nabumetone Allergy (Verified 03/07/20 10:54) Unknown orphenadrine Allergy (Verified 03/07/20 10:54) Unknown oxybutynin Allergy (Verified 03/07/20 10:54) Unknown oxycodone HCl [From Percocet] Allergy (Verified 03/07/20 10:54) Unknown paroxetine HCl [From Paxil] Allergy (Verified 03/07/20 10:54) Unknown pravastatin Allergy (Verified 03/07/20 10:54) Unknown pseudoephedrine HCl [From Sudafed] Allergy (Verified 03/07/20 10:54) Unknown simvastatin [From Zocor] Allergy (Verified 03/07/20 10:54) Unknown Sulfa (Sulfonamide Antibiotics) Allergy (Verified 03/07/20 10:54) Unknown tolterodine tartrate [From Detrol] Allergy (Verified 03/07/20 10:54) Unknown Medications to take at Discharge Ipratropium [place] 0.06% [ATROVENT NASAL SPRAY] 2 spray NASAL BID 02/11/17 Pantoprazole Sodium [Protonix] 40 mg PO DAILY 02/11/17 Repaglinide [Prandin] 1 mg PO BID 02/11/17 Temazepam [Restoril] 15 mg PO QHS PRN PRN 02/11/17 ondansetron HCl 4 mg tablet 4 mg PO Q8H PRN tab 06/26/17 Gabapentin [Neurontin] 200 mg PO QHS 02/24/20 Hydrocodone Bitart/Apap 5-325 [[place] 5/325] 1 tab PO Q4H PRN PRN 02/24/20 Insulin Detemir [Levemir Flextouch] 10 unit SQ DAILY 02/24/20 Irbesartan [Avapro] 150 mg PO DAILY 02/24/20 Iron Polysaccharide Complex [Ferrex 150] 150 mg PO BID 02/24/20 Carvedilol [Coreg (Beta Marky)] 6.25 mg PO BID 03/07/20 Docusate Sodium [Colace] 100 mg PO DAILY PRN PRN 03/07/20 Doxycycline [Vibramycin] 100 mg PO BID 03/07/20 Methadone HCl 5 mg PO BID 03/07/20 Primary Care Physician: Juliocesar Salmon MD [Primary Care Provider] - Please follow up with your Primary Care Physician in: 3-5 days Test Results: Test results from this visit will be discussed in further detail at your follow-up appointment, if applicable.
--- NOTE | 2020-03-09 10:30 | CASEMGMT ---
Call to Liliam at [facility] to notify that pt will be discharged today and DARIUS order placed at this time. Scooter ABDI CM
[2020-03-09] MEDS: Insulin Lispro 100 UNIT/ML INSULN.PEN SC (11:02)
[2020-03-09 11:20] LABS: Bedside Glucose 202 mg/dL (70-110)
--- NOTE | 2020-03-09 11:26 | PHA.DC.MR ---
Pharmacy Service has performed discharge medication reconciliation for this patient. The patient's discharge medication list was reviewed for discrepancies and discrepancies were resolved. Home Medications Ipratropium [place] 0.06% [ATROVENT NASAL SPRAY] 2 spray NASAL BID 02/11/17 Pantoprazole Sodium [Protonix] 40 mg PO DAILY 02/11/17 Repaglinide [Prandin] 1 mg PO BID 02/11/17 Temazepam [Restoril] 15 mg PO QHS PRN PRN 02/11/17 ondansetron HCl 4 mg tablet 4 mg PO Q8H PRN tab 06/26/17 Gabapentin [Neurontin] 200 mg PO QHS 02/24/20 Hydrocodone Bitart/Apap 5-325 [[place] 5/325] 1 tab PO Q4H PRN PRN 02/24/20 Insulin Detemir [Levemir Flextouch] 10 unit SQ DAILY 02/24/20 Irbesartan [Avapro] 150 mg PO DAILY 02/24/20 Iron Polysaccharide Complex [Ferrex 150] 150 mg PO BID 02/24/20 Carvedilol [Coreg (Beta Marky)] 6.25 mg PO BID 03/07/20 Docusate Sodium [Colace] 100 mg PO DAILY PRN PRN 03/07/20 Doxycycline [Vibramycin] 100 mg PO BID 03/07/20 Methadone HCl 5 mg PO BID 03/07/20
--- NOTE | 2020-03-09 14:29 | DS.PCM_ITS ---
Discharge Date and Diagnosis Date of Admission: 03/07/20 Date of Discharge: 03/09/20 - Secondary Discharge Diagnosis Chronic Problems: Chronic Problems (Last Reviewed 03/07/20 @ 14:[address] Diaz Lester, ) Generalized weakness (Chronic) Right ventricular dilation (Chronic) Non-ischemic cardiomyopathy (Chronic) Acute systolic (congestive) heart failure (Chronic 02/24/20) Essential (primary) hypertension (Chronic) Hyperlipidemia (Chronic) PAD (peripheral artery disease) (Chronic) Hyponatremia (Chronic) Anemia (Chronic) Hepatocellular carcinoma (Chronic) Hospital Course and Treatment Imaging Results: Clinical Impression(s) from Imaging Studies Chest X-Ray 03/07/20 11:55 IMPRESSION: Near completely resolved perihilar airspace disease COPD/emphysema Electronically Signed: Diaz Cazares DO at 12:41 EDT Tel , Service support , Consultations 03/07/20 14:43 Consult: Onc/Wound/greenskeeper Routine Comment: Operations: None Procedures: None Summary of Care Provided: PEr HPI: The patient is a 84 year old F who was sent in due to abnormal labs. Patient previously had sodium of 119 and was stopped on her Lasix today is 123 and was sent into the hospital. Patient's creatinine was also up to 1.5, from baseline of 1.15. There had been some mention to the emergency room physician that the patient was confused and they did order lab work for that which showed no abnormalities. There they did endorse that the patient has just been weaker than normal. Patient was very apprehensive about coming into the hospital because she did develop a wound on her right heel from her last hospitalization. Hospital Course: 1. Hyponatremia secondary to [id number]-old female who presented to the hospital for abnormal labs. She felt fine on admission however she did have a s odium of 119. She was on Lasix because of her heart failure however this is probably exacerbating her hyponatremia. Also her creatinine was elevated and her baseline is around 1 0.1 and on admission she was 1.5. Her sodium improved with fluid restriction today to 128. Therefore her Lasix were completely discontinued on discharge, and she was placed on a 1500 cc fluid restriction. Her creatinine did improve from 1.57 to 1.27 on discharge. I did discuss with her and the son that she would need to follow-up with her outpatient physician for follow-up on her sodium. She should continue with her fluid restriction and she should not be on Lasix. Hopefully the fluid restriction will be enough to control her heart failure. I discussed the plan for discharge today with the patient and her son, and both expressed understanding of the risks and benefits of discharge today. Since her creatinine did improve her ARB, was restarted on discharge. 2. Chronic systolic CHF, hypertension, hyperlipidemia, insulin-dependent diabetes type 2, chronic kidney disease stage III, GERD are all chronic medical conditions which complicate her care. Her home medications were continued where appropriate - Physical Exam Vitals/I&O's: Vital Signs Temp Pulse Resp BP Pulse Ox 97.8 F 83 14 112/57 L 99 03/09/20 09:25 03/09/20 09:25 03/09/20 09:25 03/09/20 09:25 03/09/20 09:25 Oxygen Delivery Method Room Air Weight: 132 lb 0.91 oz Body Mass Index (BMI) 22.6 Intake and Output for Last 24 Hours 03/07/20 03/08/20 03/09/20 23:59 23:59 23:59 Intake Total 480 / 480 610 / 610 400 / 400 Balance 480 / 480 610 / 610 400 / 400 General: Alert, Oriented x3, Cooperative, No apparent distress HEENT: Atraumatic, PERRLA, EOMI, Normocephalic Oral: Moist Mucosa Neck: Supple, No JVD Lungs: Clear to auscultation, Normal air movement, No rhonchi, No wheeze, No rales, Diminished Cardiovascular: Regular rate, Regular Rhythm, Normal S1, Normal S2, No murmurs Abdomen: Soft, Non Tender, Non-Distended, No Hepato-splenomegaly Extremities: Capillary Refill Less than 3 Seconds, Edema - 1+ pitting edema bilaterally Skin: - - Stage I decubitus ulcer on her right heel Neurological: Neuro grossly intact, Sensory exam intact to light touch and pain Psych/Mental Status: Normal Affect, Appropriate Laboratory Results 03/08/20 16:28: POC Glucose 164 H 03/08/20 21:43: POC Glucose 155 H 03/09/20 06:09: Sodium 128 L, Potassium 4.3, Chloride 94 L, Carbon Dioxide 30.0, Anion Gap 4 L, BUN 32 H, Creatinine 1.27 H, Estim Creat Clear Calc 30.20, Est GFR (MDRD) Af Amer 52 L, Est GFR (MDRD) Non-Af 43 L, BUN/Creatinine Ratio 25.2 H , Glucose 97, Calcium 8.2 L 03/09/20 06:44: POC Glucose 115 H 03/09/20 10:59: POC Glucose 202 H Discharge Activity: Return to Normal Activity Call your doctor if you observe: Fever of 101 or Higher, Shortness of breath, Dizziness, Fainting spells, Swelling in the ankles, Chest pain, Increased palpitations (irregular heartbeat) Home Medications: Medications to take at Discharge Ipratropium [place] 0.06% [ATROVENT NASAL SPRAY] 2 spray NASAL BID 02/11/17 Pantoprazole Sodium [Protonix] 40 mg PO DAILY 02/11/17 Repaglinide [Prandin] 1 mg PO BID 02/11/17 Temazepam [Restoril] 15 mg PO QHS PRN PRN 02/11/17 ondansetron HCl 4 mg tablet 4 mg PO Q8H PRN tab 06/26/17 Gabapentin [Neurontin] 200 mg PO QHS 02/24/20 Hydrocodone Bitart/Apap 5-325 [[place] 5/325] 1 tab PO Q4H PRN PRN 02/24/20 Insulin Detemir [Levemir Flextouch] 10 unit SQ DAILY 02/24/20 Irbesartan [Avapro] 150 mg PO DAILY 02/24/20 Iron Polysaccharide Complex [Ferrex 150] 150 mg PO BID 02/24/20 Carvedilol [Coreg (Beta Marky)] 6.25 mg PO BID 03/07/20 Docusate Sodium [Colace] 100 mg PO DAILY PRN PRN 03/07/20 Doxycycline [Vibramycin] 100 mg PO BID 03/07/20 Methadone HCl 5 mg PO BID 03/07/20 Primary Care Physician: Juliocesar Salmon MD [Primary Care Provider] - Please follow up with your Primary Care Physician in: 3-5 days Please Follow Up With: Juliocesar Salmon MD Disposition: Home Minutes spent on discharge:: 35 Patient Condition:: Stable Medical Necessity - Tobacco Use Smoking Status: Former smoker Tobacco Use: Cigarettes Meaningful Use Info Meaningful Use Diagnoses (Choose all that apply): None applicable Inpatient E&M: 47710 Disch Hosp
--- NOTE | 2020-03-10 16:36 | CASEMGMT ---
[facility] Discharge Follow-up Phone Call: ECTOR: Roxana Strata: 3 Call Date: 03/09/2020 Discharge Date: 03/10/2020 Time of Call: 1630 Duration: 5 minutes Admitting Diagnosis: SIADH Call placed to patient's home. Pt TELLER but answering questions appropriately. Pt states she is feeling much better since discharge. States her son and daughter are assisting her as needed and denied any questions about her discharge instructions or medications. Pt states she is not going to complete PT with [facility] as she feels that if she does anything more than what she has to do then she becomes too tired. Will reach out to [facility] to discuss. Pt unable to state any further specific needs at this time. Deborah Vera RN CM
== END 2020-03-09 12:01 | disposition home or self-care (01) | DRG 644 ==
LOC: ED 14:10 → PCU 14:29
PROVIDERS: Emergency Provider Student in an Organized Health Care Education/Training Program; PCP Internal Medicine; Visit Provider Family Medicine
DX: E22.2 Syndrome of inappropriate secretion of antidiuretic hormone (principal); I13.0 Hypertensive heart and chronic kidney disease with heart failure and stage 1 through stage 4 chronic kidney disease, or unspecified chronic kidney disease; I50.22 Chronic systolic (congestive) heart failure; C22.0 Liver cell carcinoma; I42.8 Other cardiomyopathies; N17.9 Acute kidney failure, unspecified; E11.22 Type 2 diabetes mellitus with diabetic chronic kidney disease; N18.3 Chronic kidney disease, stage 3 (moderate); E78.5 Hyperlipidemia, unspecified; K21.9 Gastro-esophageal reflux disease without esophagitis; E11.51 Type 2 diabetes mellitus with diabetic peripheral angiopathy without gangrene; Z86.718 Personal history of other venous thrombosis and embolism; F41.9 Anxiety disorder, unspecified; K58.9 Irritable bowel syndrome, unspecified; M48.00 Spinal stenosis, site unspecified; Z79.899 Other long term (current) drug therapy; Z79.4 Long term (current) use of insulin; Z87.891 Personal history of nicotine dependence; Z87.19 Personal history of other diseases of the digestive system; M85.80 Other specified disorders of bone density and structure, unspecified site; K44.9 Diaphragmatic hernia without obstruction or gangrene; D63.8 Anemia in other chronic diseases classified elsewhere
CPT/HCPCS: 36415; 71045; 80048; 80053; 80076; 81001; 82140; 82962; 83690; 93005; 97162; 97166; 97530; 99285; A4216

== ENCOUNTER 2020-03-20 11:51 | Emergency (ER) | payer MEDICARE, SELFPAY ==
[2020-03-07 14:50] VITALS: BMI 22.6
[2020-03-20 11:52] VITALS: BP 151/61; PULSE 89; RESP 18; TEMP 37.4; O2SAT 95; BMI 25.0
--- NOTE | 2020-03-20 12:26 | ED.VIS.LOWEX ---
History of Present Illness Chief Complaint: Wound Check Informant: Patient, Family, Fine Arts Teacher Onset: Weeks - 2-3 Context: Gradual Onset Timing: Continuous Quality of Pain: Aching, - - sore Location: distal R lower leg and heel wound; less left heel Current Severity: Moderate Maximum Severity: Severe Worsened by: walking Relieved by: rest Associated Symptoms: Negative for: Parasthesia, Weakness, Loss of Funtion Narrative: Patient has had several hospitalizations recently, and as a result of lying in the hospital, she states she sustained blistered wounds to her heels. Saw PCP for these, did not receive any type of dressing but was referred to wound care, has an appointment at the end of this week, but in the last several days has noticed increased redness and pain and concerned about the possibility of infection. No fevers, chills, systemic symptoms. She feels well other than this discomfort. Chronic edema in both legs is no worse than usual, on diuretic for that. She is able to walk with a walker/assistance, however it is painful. Lives at home with family. - Past Medical History (1) Essential (primary) hypertension Status: Chronic (2) Hepatocellular carcinoma Status: Chronic (3) Hyperlipidemia Status: Chronic (4) Non-ischemic cardiomyopathy Status: Chronic (5) PAD (peripheral artery disease) Status: Chronic Past Medical History - Allergies and Home Meds Allergies/Adverse Reactions: Allergies aspirin Allergy (Verified 03/07/20 10:54) Unknown atorvastatin calcium [From Lipitor] Allergy (Verified 03/07/20 10:54) Unknown baclofen Allergy (Verified 03/07/20 10:54) Unknown celecoxib [From Celebrex] Allergy (Verified 03/07/20 10:54) Unknown flavoxate Allergy (Verified 03/07/20 10:54) Unknown glimepiride Allergy (Verified 03/07/20 10:54) Unknown hydrochlorothiazide Allergy (Verified 03/07/20 10:54) Unknown ibuprofen Allergy (Verified 03/07/20 10:54) Unknown losartan potassium [From Cozaar] Allergy (Verified 03/07/20 10:54) Unknown mirtazapine Allergy (Verified 03/07/20 10:54) Unknown nabumetone Allergy (Verified 03/07/20 10:54) Unknown orphenadrine Allergy (Verified 03/07/20 10:54) Unknown oxybutynin Allergy (Verified 03/07/20 10:54) Unknown oxycodone HCl [From Percocet] Allergy (Verified 03/07/20 10:54) Unknown paroxetine HCl [From Paxil] Allergy (Verified 03/07/20 10:54) Unknown pravastatin Allergy (Verified 03/07/20 10:54) Unknown pseudoephedrine HCl [From Sudafed] Allergy (Verified 03/07/20 10:54) Unknown simvastatin [From Zocor] Allergy (Verified 03/07/20 10:54) Unknown Sulfa (Sulfonamide Antibiotics) Allergy (Verified 03/07/20 10:54) Unknown tolterodine tartrate [From Detrol] Allergy (Verified 03/07/20 10:54) Unknown Primary Care Physician: Juliocesar Salmon MD [Primary Care Provider] - Surgical History: - Lives: With Family Smoking Status: Former smoker Review of Systems General: Denies: Chills, Fever, Sweats Eyes: Denies: Visual changes - bilaterally, Diplopia ENT: Denies: Rhinorrhea, Sore throat Cardiovascular: Denies: Chest pain, Palpitations Respiratory: Denies: Dyspnea, Cough, Dyspnea on exertion Gastrointestinal: Denies: Abdominal pain, Nausea, Vomiting, Diarrhea, Melena, Hematochezia Genitourinary: Denies: Dysuria, Hematuria, Frequency Musculoskeletal: Reports: Swelling, Extremity Pain. Denies: Back pain Skin: Reports: Wounds. Denies: Rash Neurological: Denies: Headache, Weakness, Numbness Physical Exam Vital Signs/Narrative: Vital Signs Temp Pulse Resp BP Pulse Ox 03/20/20 11:52 99.3 F H 89 18 151/61 H 95 Inital Vital Signs reviewed: Yes - Extremity Exam Right Tib fib: - - Good range of motion throughout knee and ankle. Cellulitis distal lower leg emanating from the heel wound. Tender. No palpable cords. All compartments soft and nondistended. No calf tenderness. Edema both lower legs, symmetric, to the knees, 1+. Right Foot: - - Wound right heel. See below. Left Foot: - - Wounds. See below. General: Well nourished, Well developed, - - nad Head: Normocephalic, Atraumatic Eyes: Perrl, EOMI ENT: No Trauma, Moist Mucous Membranes Neck: Nontender, Full ROM Cardiovascular: Regular rate, Regular rhythm. Negative for: Tachycardia Respiratory: No distress, CTA bilaterally, Chest nontender Abdomen: Soft, Nontender, Nondistended, Normal bowel sounds Back: Nontender, - - FROM Skin: - - Superficially opened pressure wound right posterior foot/heel, with surrounding erythema, tenderness throughout, the erythema/cellulitis extends to the distal lower leg, not as far as the gastrocnemius. No lymphangitis. Small nonruptured nonerythematous nontender bulla left lateral midfoot. Smaller pressure ulcer left heel without surrounding cellulitis. No discharge from any of these wounds. Neurological: Alert, Oriented x3, Cranial nerves II-XII grossly intact, Normal Strength, Normal Sensation Psychological: Normal affect, Normal Mood Diagnostic/Tx/Re-eval Impressions Foot X-Ray 03/20/20 12:53 IMPRESSION: Small plantar spur. Electronically Signed: Deangelo Heena, at 13:07 EDT , Service support , 03/20/20 12:53 Foot min 3 Views [RAD] Stat Laboratory Results 03/20/20 03/20/20 12:40 12:40 WBC 4.7 RBC 3.31 L Hgb 8.6 L Hct 28.1 L MCV 84.9 MCH 26.0 L MCHC 30.6 L RDW Std Deviation 56.1 H RDW Coeff of [place] 18.4 H Plt Count 276 MPV 11.3 Immature Gran % (Auto) 0.400 Neut % (Auto) 63.4 Lymph % (Auto) 18.4 L [place] % (Auto) 13.6 H Eos % (Auto) 3.6 Baso % (Auto) 0.6 Absolute Neuts (auto) 3.0 Absolute Lymphs (auto) 0.87 Nucleated RBC % 0 Sodium 130 L Potassium 5.4 H Chloride 98 Carbon Dioxide 29.0 Anion Gap 3 L BUN 28 H Creatinine 1.77 H Estim Creat Clear Calc 20.80 Est GFR (MDRD) Af Amer 35 L Est GFR (MDRD) Non-Af 29 L BUN/Creatinine Ratio 15.8 Glucose 193 H Calcium 8.5 - Rhythm Strip Rhythm Strip: Sinus Rhythm Rate: 85 Ectopy: None - EKG Initial EKG Interpretation: Sinus Rhythm, No Acute Injury Pattern - Medical Decision Making Patient's wound may be getting infected. She was given empiric Ancef IV, blood work and an x-ray were obtained. The only remarkable findings that there are, mild elevation of creatinine, similar BUN, and mild elevation of potassium at 5.4 which is just out of the normal range. I obtained an EKG, it shows no significant changes of hyperkalemia, and she was given a dose of Kayexalate. I confirm that she had significant other do want to be discharged home. I discussed with Dr. Salmon, he is comfortable following up with her in the office with regards to the potassium, and he confirms that the patient has an upcoming appointment at the end of the week with wound care. We put a dressing on the wound on her right heel here, to help cushion the area and with some bacitracin, discussed dressing changes with the , and they are comfortable with this overall plan and we discussed reasons to return. ED Disposition - Plan for ED Patient: Disposition: Home or Assisted Living Diagnosis: Hyperkalemia, Renal insufficiency, Cellulitis of right foot Instructions: ED Cellulitis, ED POTASSIUM EXCESS Prescriptions: Cephalexin [Keflex] 500 mg PO 4X/DAY #40 cap Transmission Status: Pending to [facility][id number] Referrals: Juliocesar Salmon MD [Primary Care Provider] - 3-5 Days
[2020-03-20 12:51] VITALS: BP 141/61; PULSE 85; RESP 16; O2SAT 96
[2020-03-20 12:51] LABS: Absolute Lymphocyte Count 0.87 X10^3/uL (0.83-4.51); Basophil# 0.03 X10^3/uL; Basophil% 0.6 % (0-1); Eosinophil# 0.17 X10^3/uL; Eosinophils% 3.6 % (0-5); Hematocrit 28.1 % (37-47); Hemoglobin 8.6 g/dL (12.0-15.0); Lymphocyte # 0.87 X10^3/ul (4.0); Lymphocyte % 18.4 % (19-41); Mean Corp Hgb Conc 30.6 g/dL (32-36); Mean Corpuscular Volume 84.9 fL (81-99); Mean Platelet Vol. 11.3 fl (6.2-12.0); Monocyte# 0.64 X10^3/uL; Monocyte% 13.6 % (0-10); NRBC Flagged by Analyzer 0 % (0-5); Neutrophil # 2.99 X10^3/uL (2.7-7.7); Neutrophil % 63.4 % (47-70); Platelet Count 276 K/mm3 (150-450); RBC Distribution Width CV 18.4 % (11.6-14.6); RBC Distribution Width SD 56.1 fl (35.1-43.9); Red Blood Count 3.31 M/mm3 (4.2-5.4); White Blood Count 4.7 K/mm3 (4.4-11.0)
--- NOTE | 2020-03-20 12:53 | RAD_ITS ---
STUDY: X-RAY - RIGHT FOOT CLINICAL: Female, 84 years old. Large ulcer on heel, pain TECHNIQUE: 3 view(s) of the foot. COMPARISON: None. FINDINGS: There is a plantar calcaneal spur. Normal visualized subtalar, talonavicular, calcaneocuboid, tarsal and tarsometatarsal articulations. Normal metatarsi. There is degenerative arthrosis of the metatarsophalangeal joint of the hallux . Normal tibial and fibular sesamoid bones. Normal interphalangeal joint of the great toe. Normal phalanges of the great toe. Normal second through fifth metatarsophalangeal joints. Normal interphalangeal joints and phalanges of the lesser toes. The soft tissue structures are unremarkable. RAD/Foot min 3 Views IMPRESSION: Small plantar spur. Electronically Signed: Deangelo Naik, at 13:07 EDT , Service support ,
[2020-03-20] MEDS: Cefazolin 1 GM/50 ML BAG IV (13:08)
[2020-03-20] MEDS: Morphine 2 MG/ML Syringe IV (13:08)
[2020-03-20 13:12] LABS: Anion Gap 3 (5-15); BUN 28 mg/dL (7-18); BUN/Creat Ratio 15.8 RATIO (10-20); Calcium,Total 8.5 mg/dL (8.5-10.1); Chloride 98 mmol/L (98-107); Creatinine, Serum 1.77 mg/dL (0.55-1.02); EST Glomerular Filtration Rate 29 mL/min (>60); Est Glom Filt Rate - Afr Amer 35 mL/min (>60); Glucose 193 mg/dL (74-106); Potassium 5.4 mmol/L (3.5-5.1); Sodium Level 130 mmol/L (136-145)
[2020-03-20 14:00] VITALS: BP 138/78; PULSE 85; RESP 16; O2SAT 98
--- NOTE | 2020-03-20 14:11 | EKG12_ITS ---
Test Reason : ABN LABS Blood Pressure : / mmHG Vent. Rate : 089 BPM Atrial Rate : 089 BPM P-R Int : 168 ms QRS Dur : 106 ms QT Int : 356 ms P-R-T Axes : 078 -09 064 degrees QTc Int : 433 ms Normal sinus rhythm Septal infarct , age undetermined Abnormal ECG Confirmed by OUMOU VALENTIN, DAVID ([id number]), editorial director NANCI FAJARDO ([id number]) on 03/22/2020 11:05:18 AM Referred By: BB Confirmed By:DAVID COELLO MD
[2020-03-20] MEDS: Sodium Polystyrene Sulfonate 15 GM/60 ML UDC PO (14:37)
[2020-03-20 14:50] VITALS: BP 149/64; PULSE 87; RESP 18; TEMP 37.1; O2SAT 96
== END 2020-03-20 14:51 | disposition home or self-care (01) ==
PROVIDERS: Emergency Provider Emergency Medicine; PCP Internal Medicine
DX: E87.5 Hyperkalemia (principal); N28.9 Disorder of kidney and ureter, unspecified; L03.115 Cellulitis of right lower limb; S90.822A Blister (nonthermal), left foot, initial encounter; S90.821A Blister (nonthermal), right foot, initial encounter; X58.XXXA Exposure to other specified factors, initial encounter; Y93.9 Activity, unspecified; Y92.9 Unspecified place or not applicable; C22.0 Liver cell carcinoma; I10 Essential (primary) hypertension; E78.5 Hyperlipidemia, unspecified; I73.9 Peripheral vascular disease, unspecified; I42.8 Other cardiomyopathies; Z79.4 Long term (current) use of insulin; Z79.899 Other long term (current) drug therapy; Z87.891 Personal history of nicotine dependence
CPT/HCPCS: 73630; 80048; 85025; 93005; 96365; 96366; 96375; 99284; J7040; A4216

== ENCOUNTER 2020-03-24 11:17 | Outpatient (RCR) | payer MEDICARE, SELFPAY ==
[2020-03-07 14:50] VITALS: BMI 22.6
[2020-03-24 11:31] VITALS: BP 149/57; PULSE 91; RESP 16; TEMP 36.7; BMI 22.1
--- NOTE | 2020-03-24 14:44 | HP.PCM_ITS ---
(1) Diabetes mellitus Status: Chronic Current Visit: Yes Qualifiers: Diabetes mellitus type: type 2 Diabetes mellitus supervisor intermediates insulin use: with fci use Diabetes mellitus complication status: with skin complications Diabetes mellitus complication detail: with foot ulcer Qualified Code(s): E11.621 - Type 2 diabetes mellitus with foot ulcer; L97.509 - Non-pressure chronic ulcer of other part of unspecified foot with unspecified severity; Z79.4 - care home (current) use of insulin Code(s): E11.9 - Type 2 diabetes mellitus without complications (2) Pressure ulcer of left heel, stage 1 Status: Chronic Current Visit: Yes Code(s): L89.621 - Pressure ulcer of left heel, stage 1 (3) Pressure ulcer of right heel, stage 3 Status: Chronic Current Visit: Yes Code(s): L89.613 - Pressure ulcer of right heel, stage 3 (4) Diabetic ulcer of left ankle associated with diabetes mellitus due to underlying condition Status: Chronic Current Visit: Yes Code(s): E08.622 - Diabetes mellitus due to underlying condition with other skin ulcer; L97.329 - Non-pressure chronic ulcer of left ankle with unspecified severity (5) Diabetic ulcer of left ankle with fat layer exposed Status: Chronic Current Visit: Yes Code(s): E11.622 - Type 2 diabetes mellitus with other skin ulcer; L97.322 - Non-pressure chronic ulcer of left ankle with fat layer exposed (6) PAD (peripheral artery disease) Status: Chronic Current Visit: Yes Code(s): I73.9 - Peripheral vascular disease, unspecified (7) Venous (peripheral) insufficiency Status: Chronic Current Visit: Yes Code(s): I87.2 - Venous insufficiency (chronic) (peripheral) History of Present Illness Date of Service: 03/24/20 Chief Complaint: ulcers to heel and left ankle History of Wound: Sirisha is an 84 yo female that presents to the wound center for evaluation and treatment of ulcers of her right heel and left ankle and injury to her left heel that have been present for approximately 1 month. These started out as bruises initially while she was hospitalized at [facility] and have worsened and started to drain. She lives with her son and her daughter has been dressing the ulcers with gauze and trying to avoid pressure to the heels. She does walk to the bathroom but spends the majority of time in a recliner. She is very weak. She saw her PCP and he referred her to the wound center and started her on Keflex for treatment of infection. She was recently diagnosed with hepatocellular carcinoma and hepatitis C and is currently on palliative care through [facility]. She is undergoing treatment for her liver cancer and hepatitis. She denies fever, chills. Past Medical History Past Medical History: Chronic Problems (Last Reviewed 03/07/20 @ 14:[address] Diaz Lester, DO) Diabetes mellitus (Chronic) Pressure ulcer of left heel, stage 1 (Chronic) Pressure ulcer of right heel, stage 3 (Chronic) Diabetic ulcer of left ankle associated with diabetes mellitus due to underlying condition (Chronic) Diabetic ulcer of left ankle with fat layer exposed (Chronic) Venous (peripheral) insufficiency (Chronic) Generalized weakness (Chronic) Right ventricular dilation (Chronic) Non-ischemic cardiomyopathy (Chronic) Acute systolic (congestive) heart failure (Chronic 02/24/20) Essential (primary) hypertension (Chronic) Hyperlipidemia (Chronic) PAD (peripheral artery disease) (Chronic) Hyponatremia (Chronic) Anemia (Chronic) Hepatocellular carcinoma (Chronic) Surgical History: - Allergies/Adverse Reactions: Allergies aspirin Allergy (Verified 03/07/20 10:54) Unknown atorvastatin calcium [From Lipitor] Allergy (Verified 03/07/20 10:54) Unknown baclofen Allergy (Verified 03/07/20 10:54) Unknown celecoxib [From Celebrex] Allergy (Verified 03/07/20 10:54) Unknown flavoxate Allergy (Verified 03/24/20 11:57) Unknown glimepiride Allergy (Verified 03/24/20 11:57) Unknown hydrochlorothiazide Allergy (Verified 03/24/20 11:57) Unknown ibuprofen Allergy (Verified 03/24/20 11:57) Unknown losartan potassium [From Cozaar] Allergy (Verified 03/24/20 11:57) Unknown mirtazapine Allergy (Verified 03/24/20 11:57) Unknown nabumetone Allergy (Verified 03/24/20 11:57) Unknown orphenadrine Allergy (Verified 03/24/20 11:57) Unknown oxybutynin Allergy (Verified 03/24/20 11:57) Unknown oxycodone HCl [From Percocet] Allergy (Verified 03/24/20 11:57) Unknown paroxetine HCl [From Paxil] Allergy (Verified 03/24/20 11:57) Unknown pravastatin Allergy (Verified 03/24/20 11:57) Unknown pseudoephedrine HCl [From Sudafed] Allergy (Verified 03/24/20 11:57) Unknown simvastatin [From Zocor] Allergy (Verified 03/24/20 11:57) Unknown Sulfa (Sulfonamide Antibiotics) Allergy (Verified 03/24/20 11:57) Unknown tolterodine tartrate [From Detrol] Allergy (Verified 03/24/20 11:57) Unknown Home Medications: Ambulatory Orders Medication Instructions Recorded Ipratropium [place] 0.06% 2 spray NASAL BID 02/11/17 [ATROVENT NASAL SPRAY] Pantoprazole Sodium [Protonix] 40 mg PO DAILY 02/11/17 Repaglinide [Prandin] 1 mg PO BID 02/11/17 Temazepam [Restoril] 15 mg PO QHS PRN PRN 02/11/17 ondansetron HCl 4 mg tablet 4 mg PO Q8H PRN tab 06/26/17 Gabapentin [Neurontin] 200 mg PO QHS 02/24/20 Hydrocodone Bitart/Apap 5-325 1 tab PO Q4H PRN PRN 02/24/20 [[place] 5/325] Insulin Detemir [Levemir Flextouch] 5 unit SQ DAILY 02/24/20 Irbesartan [Avapro] 150 mg PO DAILY 02/24/20 Iron Polysaccharide Complex 150 mg PO BID 02/24/20 [Ferrex 150] Carvedilol [Coreg (Beta Marky)] 6.25 mg PO BID 03/07/20 Docusate Sodium [Colace] 100 mg PO DAILY PRN PRN 03/07/20 Methadone HCl 5 mg PO BID 03/07/20 Cephalexin [Keflex] 500 mg PO 4X/DAY #40 cap 03/20/20 - Family History Maternal Family History: Family History (Last Reviewed 03/07/20 @ 14:[address] Diaz Lester DO) Unknown Arthritis Skin cancer Asthma Bleeding disorder Breast cancer Diabetes Heart disease Hypertension High cholesterol Cancer Lives: With Family Smoking Status: Former smoker Tobacco Use: Non-smoker Alcohol: None Drugs: None Review of Systems Constitutional: Reports: Anorexia, Weakness, Fatigue Eyes: Denies: Pain, Vision Change HEENT: Reports: Difficulty Hearing, Hard of Hearing. Denies: Difficulty Swallowing Cardiovascular: Denies: Chest Pain, Palpitations Respiratory: Denies: Cough, Shortness of Breath Gastrointestinal: Denies: Diarrhea, Nausea, Vomiting Genitourinary: Denies: Dysuria, Hematuria Musculoskeletal: Reports: Back Pain, Joint Pain Skin: Reports: Wounds Neurological: Reports: Balance problems, Numbness Endocrine: Denies: Heat/ Cold Intolerance, Polydipsia, Polyuria Hematologic/ Lymphatic: Denies: Easy Bruising, Easy Bleeding - Physical Exam Vital Signs Temp Pulse Resp BP 98.1 F 91 16 149/57 H 03/24/20 11:31 03/24/20 11:31 03/24/20 11:31 03/24/20 11:31 General: Alert, Oriented x3, Cooperative, No apparent distress HEENT: Atraumatic, Normocephalic Oral: Moist Mucosa Cardiovascular: Regular rate, Regular Rhythm Abdomen: Soft, Non Tender Extremities: No cyanosis, Cool, Diminished Peripheral Pulses, Edema Skin: Ulcer/ Wound Wound Measurements and Assessment WC - Nurse 1 - General Ulcer Measurement Start: 03/24/20 11:31 Freq: Status: Active Protocol: Activity Type Activity Date Activity User E-Sign Co-Sign Detail Recorded Client Recorded Date Recorded By Document 03/24/20 11:31 [facility] [id number] 03/24/20 11:55 [facility] 03/24/20 11:31 Wound Center Nurse 1 [Ulcer Assessment] #2- L LAT ANKLE -Combined with other wound No -Current Size (cm) - Length 1 -Current Size (cm) - Width 0.8 -Current Size (cm) - Depth 0.2 -Total Square Cm 0.8 -Date of Last Picture (Recall this 03/24/20 field) -Photo Taken Yes -Epithelialization None Present -Tunneling No -Undermining/Tunneling No -Circular Undermining No -Exudate Amt Small -Exudate Type Serosanguineous -Wound Margin Distinct, Outline Attached -Granulation Amt Small (1-33%) -Granulation Quality [place] -Slough/Fibrin Yes -Necrosis Amt Large (67-100%) -Necrotic Tissue Type Adherent Slough -Texture (Jen-wound Skin Appearance) Assessed, Localized Edema ,Scarring -Moisture (Jen-wound Skin Appearance Assessed ) -Color (Jen-wound Skin Appearance) Assessed, Erythema -Temperature (Jen-wound Skin No Abnormality Appearance) (Pt Warm) -Tenderness on Palpation (Jen-wound Yes Skin Appearance) -Ulcer Cleansing SOAPY WATER -Foul Odor after Cleansing No -Anesthetic Used 4% Lidocaine Solution #1- R HEEL -Combined with other wound No -Current Size (cm) - Length 4.7 -Current Size (cm) - Width 5 -Current Size (cm) - Depth 0.1 -Total Square Cm 23.5 -Date of Last Picture (Recall this 03/24/20 field) -Photo Taken Yes -Epithelialization None Present -Tunneling No -Undermining/Tunneling No -Circular Undermining No -Exudate Amt Medium -Exudate Type Serosanguineous -Wound Margin Distinct, Outline Attached -Granulation Amt None Present (0 %) -Slough/Fibrin Yes -Necrosis Amt Large (67-100%) -Necrotic Tissue Type Eschar -Texture (Jen-wound Skin Appearance) Assessed, Scarring -Moisture (Jen-wound Skin Appearance Assessed, ) Maceration -Color (Jen-wound Skin Appearance) Assessed, Erythema,Palor -Temperature (Jen-wound Skin No Abnormality Appearance) (Pt Warm) -Tenderness on Palpation (Jen-wound Yes Skin Appearance) -Ulcer Cleansing SOAPY WATER -Foul Odor after Cleansing No -Anesthetic Used 4% Lidocaine Solution [Edema Assessment] -Lower Limb Edema Present Yes -Right Calf (cm) 36.6 -Right Ankle (cm) 22 -Left Calf (cm) 36.5 -Left Ankle (cm) 22 WC - Nurse 2 - General Ulcer CM Notes Start: 03/24/20 11:31 Freq: Status: Active Protocol: Activity Type Activity Date Activity User E-Sign Co-Sign Detail Recorded Client Recorded Date Recorded By Document 03/24/20 12:07 MW [id number] 03/24/20 12:52 MW 03/24/20 12:07 Wound Center Nurse 2 [Procedure/Treatment] #2- L LAT ANKLE -Time 12:08 -Correct Patient Yes -Correct Side, Site, Position Yes -Correct Procedure Yes -Procedure Performed Yes -Type of Procedure Debridement -Clinical Debridement Subcutaneous -Tissue Removed Subcutaneous -Post Debridement (cm) - Length 0.9 -Post Debridement (cm) - Width 0.8 -Post Debridement (cm) - Depth 0.2 -Total Square (Post) (cm) 0.72 -Area of Debridement (cm) - Length 0.9 -Area of Debridement (cm) - Width 0.8 -Total Square (Area) (cm) 0.72 -Tunneling No -Undermining/Tunneling No -Circular Undermining No -Wound/Ulcer Outcome Healed- Epithelialized -Ulcer Cleansing Rinsed/ Irrigated with Saline -Foul Odor after Cleansing No -Bioengineered Tissue No -Bleeding Controlled with Pressure -Offloading No -Treatment Response Procedure Tolerated Well -Debridement - Subq, 1st 20sq cm Yes -Debridement, SubQ, ea addt'l 20sq cm 1 or part thereof #1- R HEEL -Time 12:09 -Correct Patient Yes -Correct Side, Site, Position Yes -Correct Procedure Yes -Procedure Performed Yes -Type of Procedure Debridement -Clinical Debridement Subcutaneous -Tissue Removed Subcutaneous -Post Debridement (cm) - Length 5.5 -Post Debridement (cm) - Width 5.5 -Post Debridement (cm) - Depth 0.2 -Total Square (Post) (cm) 30.25 -Area of Debridement (cm) - Length 5.5 -Area of Debridement (cm) - Width 5.5 -Total Square (Area) (cm) 30.25 -Tunneling No -Undermining/Tunneling No -Circular Undermining No -Wound/Ulcer Outcome Not Healed -Ulcer Cleansing Rinsed/ Irrigated with Saline -Foul Odor after Cleansing No -Bioengineered Tissue No -Bleeding Controlled with Pressure -Offloading No -Treatment Response Procedure Tolerated Well -Debridement - Subq, 1st 20sq cm No [See Physician Procedure note for Specifics] Pain Scale: 0-10 Numeric [Pain] -Is Patient Pain Free? Yes WC - Nurse 3 - General Ulcer D/C NN Start: 03/24/20 11:31 Freq: Status: Active Protocol: Activity Type Activity Date Activity User E-Sign Co-Sign Detail Recorded Client Recorded Date Recorded By Document 03/24/20 13:11 [facility] [id number] 03/24/20 13:14 [facility] 03/24/20 13:11 Wound Care Nurse 3 [Wound Dressing] #2- L LAT ANKLE -Ulcer Cleansing Rinsed/ Irrigated with Saline -Foul Odor after Cleansing No -Primary Dressing Applied NonAdherent Contact Layer, Other -Other Dressing HYDROGEL -Primary Dressing Covered/Secured Dry Gauze & with Roll Gauze, Secured with Tape #1- R HEEL -Ulcer Cleansing Rinsed/ Irrigated with Saline -Foul Odor after Cleansing No -Primary Dressing Applied NonAdherent Contact Layer, Other -Other Dressing HYDROGEL -Primary Dressing Covered/Secured Dry Gauze & with Roll Gauze, Secured with Tape [Post Procedure Tolerated] -Treatment Response Procedure Tolerated Well Pain Scale: 0-10 Numeric [Pain] -Is Patient Pain Free? Yes WC - Visit Discharge [Visit Discharge Information] -Discharge Condition Stable -Ambulatory Status Wheelchair -Transportation Private Auto -Accompanied by SON Psych/Mental Status: Normal Affect, Appropriate Debridement Note Post-Debridement Measurements/Treatment WC - Nurse 2 - General Ulcer CM Notes Start: 03/24/20 11:31 Freq: Status: Active Protocol: Activity Type Activity Date Activity User E-Sign Co-Sign Detail Recorded Client Recorded Date Recorded By Document 03/24/20 12:07 MW [id number] 03/24/20 12:52 MW 03/24/20 12:07 Wound Center Nurse 2 #2- L LAT ANKLE -Time 12:08 -Correct Patient Yes -Correct Side, Site, Position Yes -Correct Procedure Yes -Procedure Performed Yes -Type of Procedure Debridement -Clinical Debridement Subcutaneous -Tissue Removed Subcutaneous -Post Debridement (cm) - Length 0.9 -Post Debridement (cm) - Width 0.8 -Post Debridement (cm) - Depth 0.2 -Total Square (Post) (cm) 0.72 -Area of Debridement (cm) - Length 0.9 -Area of Debridement (cm) - Width 0.8 -Total Square (Area) (cm) 0.72 -Tunneling No -Undermining/Tunneling No -Circular Undermining No -Wound/Ulcer Outcome Healed- Epithelialized -Ulcer Cleansing Rinsed/ Irrigated with Saline -Foul Odor after Cleansing No -Bioengineered Tissue No -Bleeding Controlled with Pressure -Offloading No -Treatment Response Procedure Tolerated Well -Debridement - Subq, 1st 20sq cm Yes -Debridement, SubQ, ea addt'l 20sq cm 1 or part thereof #1- R HEEL -Time 12:09 -Correct Patient Yes -Correct Side, Site, Position Yes -Correct Procedure Yes -Procedure Performed Yes -Type of Procedure Debridement -Clinical Debridement Subcutaneous -Tissue Removed Subcutaneous -Post Debridement (cm) - Length 5.5 -Post Debridement (cm) - Width 5.5 -Post Debridement (cm) - Depth 0.2 -Total Square (Post) (cm) 30.25 -Area of Debridement (cm) - Length 5.5 -Area of Debridement (cm) - Width 5.5 -Total Square (Area) (cm) 30.25 -Tunneling No -Undermining/Tunneling No -Circular Undermining No -Wound/Ulcer Outcome Not Healed -Ulcer Cleansing Rinsed/ Irrigated with Saline -Foul Odor after Cleansing No -Bioengineered Tissue No -Bleeding Controlled with Pressure -Offloading No -Treatment Response Procedure Tolerated Well -Debridement - Subq, 1st 20sq cm No Pain Scale: 0-10 Numeric Is Patient Pain Free? Yes - Nurse 3 - General Ulcer D/C NN Start: 03/24/20 11:31 Freq: Status: Active Protocol: Activity Type Activity Date Activity User E-Sign Co-Sign Detail Recorded Client Recorded Date Recorded By Document 03/24/20 13:11 [facility] [id number] 03/24/20 13:14 [facility] 03/24/20 13:11 Wound Care Nurse 3 #2- L LAT ANKLE -Ulcer Cleansing Rinsed/ Irrigated with Saline -Foul Odor after Cleansing No -Primary Dressing Applied NonAdherent Contact Layer, Other -Other Dressing HYDROGEL -Primary Dressing Covered/Secured with Dry Gauze & Roll Gauze, Secured with Tape #1- R HEEL -Ulcer Cleansing Rinsed/ Irrigated with Saline -Foul Odor after Cleansing No -Primary Dressing Applied NonAdherent Contact Layer, Other -Other Dressing HYDROGEL -Primary Dressing Covered/Secured with Dry Gauze & Roll Gauze, Secured with Tape Treatment Response Procedure Tolerated Well Pain Scale: 0-10 Numeric Is Patient Pain Free? Yes - Visit Discharge Discharge Condition Stable Ambulatory Status Wheelchair Transportation Private Auto Accompanied by SON Wound debrided: left lateral ankle Laterality: Left Wound Grade/Stage: Grade 1 Type of Debridement: Excisional debridement Anesthesia Used: 4% Lidocaine Solution, 5% Lidocaine Gel Depth: Down to and including healthy tissue, in the subcutaneous layer Percentage of wound debrided: 100 Instrument Used: #15 blade, Forceps Tissue Removed: Yellow slough, devitalized tissue Severity: Fat Layer Exposed Amount of bleeding with debridement: Mild Bleeding Controlled with: Compression and gauze Patient tolerated procedure well - Additional Wound Wound debrided: right heel Laterality: Right Wound Grade/Stage: Stage 3 Type of Debridement: Excisional debridement Anesthesia Used: 4% Lidocaine Solution, 5% Lidocaine Gel, - - lidocaine 2% 5 ml Depth: Down to and including healthy tissue, in the subcutaneous layer Percentage of wound debrided: 100 Instrument Used: #15 blade, Forceps Tissue Removed: Yellow slough, devitalized tissue Severity: Fat Layer Exposed Amount of bleeding with debridement: Mild Bleeding Controlled with: Compression and gauze Patient tolerated procedure: Patient tolerated procedure well Assessment/Plan Active Problems (Last Reviewed 03/07/20 @ 14:[address] Diaz Lester, DO) Diabetes mellitus (Chronic) Pressure ulcer of left heel, stage 1 (Chronic) Pressure ulcer of right heel, stage 3 (Chronic) Diabetic ulcer of left ankle associated with diabetes mellitus due to underlying condition (Chronic) Diabetic ulcer of left ankle with fat layer exposed (Chronic) Venous (peripheral) insufficiency (Chronic) PAD (peripheral artery disease) (Chronic) Assessment: Soft tissue injury left heel - Stage 1 Pressure ulcer. Left lateral mallelous ulcer due to pressure in the setting of Diabetes and PAD. Right heel ulcer - Stage 3 pressure ulcer in the setting of diabetes. Peripheral artery disease. venous insufficiency. Malnutrition Plan: Sirisha's ulcers were evaluated and debrided today. Her ulcers are very painful. Debridement was completed after anesthetizing the right heel with several modalities, not all devitalized tissue was able to be removed. Will have her use Santyl to her ulcers and cover with Adaptic and gauze. Discussed importance of offloading and protein supplementation. She is drinking protein supplements currently. Wound culture taken of her left ankle ulcer and tissue culture taken of her right heel. Will adjust antibiotic based on results. Her care is complicated by multiple co-morbidities including hepatocarcinoma and Hepatitis C with protein malnutrition and Diabetes Mellitus and she is currently receiving palliative care from [facility] and therefore I am placing her on a palliative management. She will follow up in 1 week.
== END 2020-03-31 09:19 | disposition home or self-care (01) ==
LOC: WC 11:17
PROVIDERS: PCP Internal Medicine; Referring Provider Family Medicine; Visit Provider Family Medicine
DX: L89.621 Pressure ulcer of left heel, stage 1 (principal); L89.613 Pressure ulcer of right heel, stage 3; E11.622 Type 2 diabetes mellitus with other skin ulcer; L97.322 Non-pressure chronic ulcer of left ankle with fat layer exposed; E11.51 Type 2 diabetes mellitus with diabetic peripheral angiopathy without gangrene; I87.2 Venous insufficiency (chronic) (peripheral); C22.0 Liver cell carcinoma; B19.20 Unspecified viral hepatitis C without hepatic coma; I11.0 Hypertensive heart disease with heart failure; I50.22 Chronic systolic (congestive) heart failure; E78.5 Hyperlipidemia, unspecified; I42.8 Other cardiomyopathies; Z79.4 Long term (current) use of insulin; Z79.899 Other long term (current) drug therapy
CPT/HCPCS: 11042; 11045; 87070; 87075; 87077; 87176; 87186; 87205; 99213; G0463